=== PATIENT | male | born 1950 | race Two or more races ===

== ENCOUNTER 2016-09-15 03:41 | Inpatient (IN) | payer MEDICARE, MEDICAID ==
[2016-09-15] VITALS (8 sets, daily range): BP systolic 105–148; BP diastolic 68–82
[~2016-09-15] VITALS: Ht 160 cm; Wt 57.7 kg
[~2016-09-15 03:41] MED LIST: TYLENOL EXTRA500 MG ORAL
[2016-09-15] MEDS ORDERED: Ipratropium 0.02% Inh Soln 2.5ml UD HHN ONE (03:45)
[2016-09-15] MEDS ORDERED: Albuterol ud Inhalation HHN ONE (03:45)
[2016-09-15 04:08] LABS: MEAN CORPUSCULAR HEMOGLOBIN 28.5 PG (27.0-31.0); MEAN CORPUSCULAR HGB CONC 32.9 G/DL (32.0-36.0); MEAN CORPUSCULAR VOLUME 87 FL (80-99); MEAN PLATELET VOLUME 8.6 FL (6.5-10.1); PLATELET COUNT 185 K/UL (150-450); RED CELL DISTRIBUTION WIDTH 12.2 % (11.6-14.8); WHITE BLOOD COUNT 13.7 K/UL (4.8-10.8)
[2016-09-15] MEDS ORDERED: cefTRIAXone 1 GM in NS 55 ML IVPB ONE (04:15)
[2016-09-15] MEDS ORDERED: Azithromycin 500 MG in NS 275 ML IV ONE (04:15)
[2016-09-15 04:19] LABS: PROTHROMBIN TIME 9.9 SEC (9.30-11.50)
[2016-09-15 04:23] LABS: ALBUMIN/GLOBULIN RATIO 0.7 (1.0-2.7); CALCIUM 8.2 mg/dL (8.6-10.2); POTASSIUM 5.6 mEQ/L (3.4-4.9); TOTAL PROTEIN 6.6 g/dL (6.6-8.7)
[2016-09-15 04:30] LABS: TROPONIN I 2.07 ng/mL (<=0.30)
[2016-09-15] MEDS ORDERED: Enoxaparin 80mg Inj SUBQ ONE (04:30)
[2016-09-15] MEDS ORDERED: Aspirin Baby 81mg ORAL ONE (04:30)
[2016-09-15] MEDS ORDERED: Azithromycin Inj IV ONE (04:30)
[2016-09-15 04:31] LABS: REFLEX LACTIC ACID YES OR NO YES
[2016-09-15 04:34] LABS: CKMB 6.3 ng/mL (< 6.7)
[2016-09-15] MEDS ORDERED: NKM (04:57)
[2016-09-15 05:27] LABS: APPEARANCE,URINE CLEAR; KETONES,URINE 1+ (NEGATIVE); LEUKOCYTE ESTERASE ,URINE NEGATIVE (NEGATIVE); NITRITE,URINE NEGATIVE (NEGATIVE); PH,URINE 5 (4.5-8.0); PROTEIN,URINE 4+ (NEGATIVE); UROBILINOGEN,URINE NORMAL MG/DL (0.0-1.0)
--- NOTE | 2016-09-15 05:47 | Emergency Room Report ---
History of Present Illness General Chief Complaint: Dyspnea/Respdistress Source: Patient, EMS Present Illness HPI Is a 66-year-old male who has history of insulin-dependent diabetes. He has not been taking his insulin because he ran out of medication. He presents with chief complaint shortness of breath. Onset for 3 days but worse tonight. Unable to breathe. Had to call 911. EMS said he was at rest or distress and was hypoxic at 90% on room air. They put him on oxygen and brought him here. Patient denies any fever or chills. Worse with exertion. Worse with lying flat. Denies any chest pain but has chest tightness from respiratory distress. No other complaint. Allergies: Coded Allergies: No Known Allergies (Unverified , 07/30/13) Patient History Past Medical History: see triage record, old chart reviewed, DM Past Surgical History: other Pertinent Family History: none Social History: Denies: alcohol use, drug use, smoking Immunizations: other Reviewed Nursing Documentation: PMH: Agreed, PSxH: Agreed Nursing Documentation-PMH Hx Asthma: Yes Hx Diabetes: Yes Review of Systems Eye: Denies: blurred vision, eye pain ENT: Denies: ear pain, nose congestion, throat swelling Respiratory: Reports: cough, shortness of breath Cardiovascular: Denies: chest pain, palpitations Gastrointestinal: Denies: abdominal pain, diarrhea, nausea, vomiting Musculoskeletal: Denies: back pain, joint pain Skin: Denies: rash Neurological: Denies: headache, numbness Endocrine: Denies: increased thirst, increased urine Hematologic/Lymphatic: Denies: easy bruising All Other Systems: negative except mentioned in HPI Physical Exam Vital Signs Date Time Temp Pulse Resp B/P Pulse Ox O2 Delivery O2 Flow Rate FiO2 09/15/16 03:49 98.1 111 37 166/86 90 Nasal Cannula 4.0 09/15/16 04:10 60 vitals with tachycardia, hypertension, hypoxia Sp02 EP Interpretation: abnormal General Appearance: severe distress Head: normocephalic, atraumatic Eyes: bilateral eye EOMI, bilateral eye PERRL ENT: hearing grossly normal, normal pharynx Neck: full range of motion, supple, no meningismus Respiratory: chest non-tender, respiratory distress, decreased breath sounds, rales Cardiovascular #1: regular rate, rhythm, no murmur Gastrointestinal: normal bowel sounds, non tender, no mass, no organomegaly, no bruit, non-distended Genitourinary: other - Large right inguinal hernia. Nontender. Musculoskeletal: back normal, normal range of motion Neurologic: alert, oriented x3, grossly normal Psychiatric: mood/affect normal Skin: warm/dry Procedures Critical Care Time Critical Care Time Critical care is mandated in this patient who presented with distress secondary to pulmonary edema. Patient require my urgent intervention to attenuate the risks of respiratory collapse which may lead to cardiovascular collapse and . Critical care time is 35 minutes excluding any reportable procedure. Critical care time included evaluation, multiple reevaluation, looking at old charts, interpreting laboratory and diagnostic data, discussing case with patient and family and consultants, and charting. Medical Decision Making Diagnostic Impression: Primary Impression: Respiratory failure with hypoxia Qualified Codes: J96.01 - Acute respiratory failure with hypoxia Additional Impressions: NSTEMI, initial episode of care Pulmonary edema cardiac cause Acute kidney failure Qualified Codes: N17.9 - Acute kidney failure, unspecified Hyperglycemia due to type 1 diabetes mellitus Hyperkalemia Inguinal hernia of right side without obstruction or gangrene ER Course Patient presents with respiratory distress. He improved with BiPAP breathing treatment and Lasix. His tongue edema is atypical in that mostly left-sided. I cover him for possible pneumonia. Cardiac enzyme is elevated. This may be secondary to infection versus primary etiology causing CHF from NSTEMI. Patient is noncompliant with his insulin because he ran out. Blood pressure improved. Will admit to [facility]. Laboratory Tests Test 09/15/16 03:07 09/15/16 04:39 09/15/16 05:07 White Blood Count 13.7 K/UL (4.8-10.8) H Red Blood Count 4.30 M/UL (4.70-6.10) L Hemoglobin 12.3 G/DL (14.2-18.0) L Hematocrit 37.3 % (42.0-52.0) L Mean Corpuscular Volume 87 FL (80-99) Mean Corpuscular Hemoglobin 28.5 PG (27.0-31.0) Mean Corpuscular Hemoglobin Concent 32.9 G/DL (32.0-36.0) Red Cell Distribution Width 12.2 % (11.6-14.8) Platelet Count 185 K/UL (150-450) Mean Platelet Volume 8.6 FL (6.5-10.1) Neutrophils (%) (Auto) % (45.0-75.0) Lymphocytes (%) (Auto) % (20.0-45.0) Monocytes (%) (Auto) % (1.0-10.0) Eosinophils (%) (Auto) % (0.0-3.0) Basophils (%) (Auto) % (0.0-2.0) Prothrombin Time 9.9 SEC (9.30-11.50) Prothromb Time International Ratio 1.0 (0.9-1.1) Activated Partial Thromboplast Time 33 SEC (23-33) Sodium Level 131 mEQ/L (135-145) L Potassium Level 5.6 mEQ/L (3.4-4.9) H Chloride Level 93 mEQ/L (98-107) L Carbon Dioxide Level 17 mEQ/L (20-30) L Anion Gap 21 (5-15) H Blood Urea Nitrogen 52 mg/dL (7-23) H Creatinine 3.0 mg/dL (0.7-1.2) H Estimat Glomerular Filtration Rate 21.0 mL/min (>60) Glucose Level 424 mg/dL (74-106) H Lactic Acid Level 2.30 mmol/L (0.66-2.22) H Pending Calcium Level 8.2 mg/dL (8.6-10.2) L Total Bilirubin 0.4 mg/dL (0.0-1.2) Aspartate Amino Transf (AST/SGOT) 47 U/L (5-40) H Alanine Aminotransferase (ALT/SGPT) 25 U/L (3-41) Alkaline Phosphatase 63 U/L (40-129) Total Creatine Kinase 918 U/L (38-174) H Creatine Kinase MB 6.3 ng/mL (< 6.7) Creatine Kinase MB Relative Index 0.6 Troponin I 2.07 ng/mL (<=0.30) *H Pro-B-Type Natriuretic Peptide 72911 pg/mL (0-125) H Total Protein 6.6 g/dL (6.6-8.7) Albumin 2.8 g/dL (3.5-5.2) L Globulin 3.8 g/dL Albumin/Globulin Ratio 0.7 (1.0-2.7) L Urine Color Pale yellow Urine Appearance Clear Urine pH 5 (4.5-8.0) Urine Specific [place] 1.020 (1.005-1.035) Urine Protein 4+ (NEGATIVE) H Urine Glucose (UA) 4+ (NEGATIVE) H Urine Ketones 1+ (NEGATIVE) H Urine Occult Blood 4+ (NEGATIVE) H Urine Nitrite Negative (NEGATIVE) Urine Bilirubin Negative (NEGATIVE) Urine Urobilinogen Normal MG/DL (0.0-1.0) Urine Leukocyte Esterase Negative (NEGATIVE) Urine RBC Pending Urine WBC Pending Urine Squamous Epithelial Cells Pending Urine Bacteria Pending Lab Results Impression labs with elevated BNP and trop. EKG Diagnostic Results Rate: normal, tachycardiac Rhythm: NSR ST Segments: other - NSST changes. Rhythm Strip Diag. Results EP Interpretation: yes Rate: 98 Rhythm: NSR, no PVC's, no ectopy Chest X-Ray Diagnostic Results EP Interpretation: Yes Findings: no pneumothorax, other - CM, Large left sided infiltrate vs pulm edema. Vasc congestion. Number of Views: 1 Last Vital Signs Date Time Temp Pulse Resp B/P Pulse Ox O2 Delivery O2 Flow Rate FiO2 09/15/16 05:31 98.1 107 28 148/82 97 Bi-pap 4.0 60 Status: improved Disposition: ADMITTED INPATIENT Condition: Critical Referrals: [facility],REFERRING (PCP) JERAMIE LANDAVERDE M.D. Sep 15, 2016 05:46
[2016-09-15 05:48] LABS: AMORPHOUS SEDIMENT,UR MANY /LPF; BACTERIA,URINE FEW /HPF; WBC,URINE 0 /HPF (0 - 0)
[2016-09-15] MEDS ORDERED: DuoNeb 0.5-3(2.5)mg/3ml neb HHN PRN ×2 (07:15)
[2016-09-15] MEDS ORDERED: LORazepam Inj 2mg/ml 1ml IV PRN (07:15)
[2016-09-15] MEDS ORDERED: Miralax 17gm pkt ORAL PRN ×2 (07:15)
[2016-09-15] MEDS ORDERED: Heparin 5000 units/ml inj SUBQ SCH ×2 (09:00)
[2016-09-15 09:31] LABS: TROPONIN I 2.89 ng/mL (<=0.30)
--- NOTE | 2016-09-15 11:12 | Diagnostic Imaging Report ---
Indication: SOB Technique: One view of the chest Comparison: 07/30/2013 Findings: There is extensive dense consolidation throughout the left lung. There is less extensive mostly interstitial disease throughout the right lung. Right suprahilar scarring persists, unchanged. The pleural spaces are clear. Heart size is probably normal Impression: Bilateral left greater than right parenchymal disease, as described, likely pneumonia. Correlate with clinical findings
--- NOTE | 2016-09-15 11:26 | Diagnostic Imaging Report ---
Indication: Abnormal renal function tests Technique: Grayscale and duplex images of the kidneys, retroperitoneum, and bladder were obtained. Comparison:None Findings: Right kidney measures 10.7 cm in length. Left kidney measures 10.5 cm in length. Both kidneys demonstrate normal echogenicity. No hydronephrosis. No focal abnormality. Normal inferior vena cava. Bladder is empty. There is incidental finding of a left pleural effusion Impression: Negative for hydronephrosis Left pleural effusion incidentally noted.
--- NOTE | 2016-09-15 11:31 | History and Physical ---
History of Present Illness General Date patient seen: Sep 15, 2016 Reason for Hospitalization: Dyspnea/Respdistress Present Illness HPI 66-year-old male with hx of nsulin-dependent diabetes, noncompliant, presented tp ER with chief complaint shortness of breath. Onset for 3 days but worse tonight. He was unable to breathe. EMS said he was hypoxic at 90% on room air. They put him on oxygen and brought him to [facility] ER. Patient denied any fever or chills. Denies any chest pain but has chest tightness from respiratory distress. No other complaint. Allergies: Coded Allergies: No Known Allergies (Unverified , 07/30/13) Medication History Scheduled No Known Medications* (NKM - No Known Medications*), 0 ., (Reported) Scheduled PRN Acetaminophen* (Tylenol Extra Strength*), 500 MG ORAL Q6H PRN for Prn Headache/ Temp > 101 Patient History Healthcare decision maker Resuscitation status Advanced Directive on File Past Medical/Surgical History Past Medical/Surgical History: (1) COPD (chronic obstructive pulmonary disease) (2) Diabetes mellitus Review of Systems All Other Systems: negative except mentioned in HPI Physical Exam Lines, tubes and drains: peripheral HEENT: normocephalic, atraumatic Neck: non-tender, normal alignment Respiratory/Chest: rhonchi - bilaterally Cardiovascular/Chest: normal peripheral pulses, normal rate Abdomen: normal bowel sounds, non tender Extremities: normal range of motion, non-tender 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 Last 24 Hour Vital Signs Date Time Temp Pulse Resp B/P Pulse Ox O2 Delivery O2 Flow Rate FiO2 09/15/16 09:30 97.1 100 30 118/68 98 Simple Mask 5.0 60 09/15/16 08:30 97.5 101 28 120/68 98 Simple Mask 5.0 09/15/16 08:10 102 30 Simple Mask 5.0 09/15/16 07:15 98.0 98 21 108/68 100 Bi-pap 4.0 60 09/15/16 07:15 98 21 Bi-pap 4.0 60 09/15/16 07:14 116 28 100 Facial 40 09/15/16 06:16 98.1 104 23 105/69 97 Bi-pap 4.0 60 09/15/16 05:31 98.1 107 28 148/82 97 Bi-pap 4.0 60 09/15/16 04:36 108 33 99 Bi-pap 60 09/15/16 04:13 136 36 94 Facial 60 09/15/16 04:10 136 36 95 Bi-pap 60 09/15/16 04:10 136 36 Bi-pap 4.0 60 09/15/16 03:49 98.1 111 37 166/86 90 Nasal Cannula 4.0 Intake and Output 09/14/16 09/15/16 19:00 07:00 Intake Total 330 ml Output Total 100 ml Balance 230 ml Intake IV Total 330 ml Output Urine Total 100 ml Laboratory Tests Test 09/15/16 03:07 09/15/16 04:39 09/15/16 05:07 09/15/16 08:39 White Blood Count 13.7 K/UL (4.8-10.8) H Red Blood Count 4.30 M/UL (4.70-6.10) L Hemoglobin 12.3 G/DL (14.2-18.0) L Hematocrit 37.3 % (42.0-52.0) L Mean Corpuscular Volume 87 FL (80-99) Mean Corpuscular Hemoglobin 28.5 PG (27.0-31.0) Mean Corpuscular Hemoglobin Concent 32.9 G/DL (32.0-36.0) Red Cell Distribution Width 12.2 % (11.6-14.8) Platelet Count 185 K/UL (150-450) Mean Platelet Volume 8.6 FL (6.5-10.1) Neutrophils (%) (Auto) % (45.0-75.0) Lymphocytes (%) (Auto) % (20.0-45.0) Monocytes (%) (Auto) % (1.0-10.0) Eosinophils (%) (Auto) % (0.0-3.0) Basophils (%) (Auto) % (0.0-2.0) Prothrombin Time 9.9 SEC (9.30-11.50) Prothromb Time International Ratio 1.0 (0.9-1.1) Activated Partial Thromboplast Time 33 SEC (23-33) Sodium Level 131 mEQ/L (135-145) L Potassium Level 5.6 mEQ/L (3.4-4.9) H Chloride Level 93 mEQ/L (98-107) L Carbon Dioxide Level 17 mEQ/L (20-30) L Anion Gap 21 (5-15) H Blood Urea Nitrogen 52 mg/dL (7-23) H Creatinine 3.0 mg/dL (0.7-1.2) H Estimat Glomerular Filtration Rate 21.0 mL/min (>60) Glucose Level 424 mg/dL (74-106) H Lactic Acid Level 2.30 mmol/L (0.66-2.22) H 2.10 mmol/L (0.66-2.22) Calcium Level 8.2 mg/dL (8.6-10.2) L Total Bilirubin 0.4 mg/dL (0.0-1.2) Aspartate Amino Transf (AST/SGOT) 47 U/L (5-40) H Alanine Aminotransferase (ALT/SGPT) 25 U/L (3-41) Alkaline Phosphatase 63 U/L (40-129) Total Creatine Kinase 918 U/L (38-174) H Creatine Kinase MB 6.3 ng/mL (< 6.7) Creatine Kinase MB Relative Index 0.6 Troponin I 2.07 ng/mL (<=0.30) *H 2.89 ng/mL (<=0.30) *H Pro-B-Type Natriuretic Peptide 99439 pg/mL (0-125) H Total Protein 6.6 g/dL (6.6-8.7) Albumin 2.8 g/dL (3.5-5.2) L Globulin 3.8 g/dL Albumin/Globulin Ratio 0.7 (1.0-2.7) L Urine Color Pale yellow Urine Appearance Clear Urine pH 5 (4.5-8.0) Urine Specific [place] 1.020 (1.005-1.035) Urine Protein 4+ (NEGATIVE) H Urine Glucose (UA) 4+ (NEGATIVE) H Urine Ketones 1+ (NEGATIVE) H Urine Occult Blood 4+ (NEGATIVE) H Urine Nitrite Negative (NEGATIVE) Urine Bilirubin Negative (NEGATIVE) Urine Urobilinogen Normal MG/DL (0.0-1.0) Urine Leukocyte Esterase Negative (NEGATIVE) Urine RBC 5-10 /HPF (0 - 0) H Urine WBC 0 /HPF (0 - 0) Urine Squamous Epithelial Cells None /LPF (NONE/OCC) Urine Amorphous Sediment Many /LPF (NONE) H Urine Bacteria Few /HPF (NONE) Height (Feet): 5 Height (Inches): 3.00 Weight (Pounds): 145 Medications Current Medications Medications (Trade) Dose Ordered Sig/Leslee Route PRN Reason Start Time Stop Time Status Last Admin Dose Admin Acetaminophen (Tylenol) 650 mg Q4H PRN ORAL T>100.5 09/15/16 07:15 10/15/16 07:14 Albuterol/ Ipratropium (DuoNeb 0.5-3(2.5)mg/3ml) 3 ml Q4H PRN HHN Shortness of Breath 09/15/16 07:15 09/20/16 07:14 Cefepime HCl 1 gm/ Dextrose 55 ml @ 110 mls/hr EVERY 12 HOURS IVPB 09/15/16 11:30 09/22/16 11:29 UNV Dextrose (Dextrose 50%) STAT PRN IV Hypoglycemia 09/15/16 07:15 10/15/16 07:14 Heparin Sodium (Porcine) (Heparin 5000 units/ml) 5,000 units EVERY 12 HOURS SUBQ 09/15/16 09:00 10/15/16 08:59 09/15/16 09:51 Levofloxacin (Levaquin) 100 ml @ 100 mls/hr Q24H IVPB 09/15/16 11:30 09/22/16 11:29 UNV Lorazepam (Ativan 2mg/ml 1ml) 2 mg Q2H PRN IV For Anxiety 09/15/16 07:15 09/22/16 07:14 Morphine Sulfate (Morphine Sulfate) 4 mg Q4H PRN IVP Severe Pain (Pain Scale 7-10) 09/15/16 07:15 09/22/16 07:14 Ondansetron HCl (Zofran) 4 mg Q6H PRN IVP Nausea & Vomiting 09/15/16 07:15 10/15/16 07:14 Polyethylene Glycol (Miralax) 17 gm DAILYPRN PRN ORAL Constipation 09/15/16 07:15 10/15/16 07:14 Temazepam (Restoril) 15 mg HSPRN PRN ORAL Insomnia 09/15/16 21:00 09/22/16 20:59 Vancomycin HCl 1 ea 1 ea DAILY PRN MISC Per rx protocol 09/15/16 11:30 10/15/16 11:29 UNV Assessment/Plan Problem List: (1) Respiratory failure with hypoxia ICD Codes: J96.91 - Respiratory failure, unspecified with hypoxia SNOMED: 74799483939865584, 40296439 Qualifiers: Qualified Codes: J96.01 - Acute respiratory failure with hypoxia (2) NSTEMI, initial episode of care ICD Codes: I21.4 - Non-ST elevation (NSTEMI) myocardial infarction SNOMED: 950799415, 22483631 (3) Pneumonia ICD Codes: J18.9 - Pneumonia, unspecified organism SNOMED: 413429157 (4) Acute kidney failure ICD Codes: N17.9 - Acute kidney failure, unspecified SNOMED: 83399696, 05987718 Qualifiers: Qualified Codes: N17.9 - Acute kidney failure, unspecified (5) Hyperkalemia ICD Codes: E87.5 - Hyperkalemia SNOMED: 02179935, 61376884 (6) Diabetes mellitus ICD Codes: E11.9 - Type 2 diabetes mellitus without complications SNOMED: 68889666 Assessment/Plan respiratory treatment IV antibiotics check sputum echo cardiac evaluation f/u troponin and ekg dvt prophylaxis cxr in a few days. SIM ROJAS Sep 15, 2016 11:31
--- NOTE | 2016-09-15 12:42 | Cardiology Progress Note ---
Assessment/Plan Assessment/Plan pnewuamoni nstemi probably demand and underlying cad dm poor present control renal insuf (acute l=liek as hgb still ok) hs of tb abn ekg naitcocgulation bb ecotrin statin echo iv abx avoitn albutera if at all possible no diuretics yet [id number] Objective Last 24 Hour Vital Signs Date Time Temp Pulse Resp B/P Pulse Ox O2 Delivery O2 Flow Rate FiO2 09/15/16 12:14 102 24 120/71 97 Simple Mask 5.0 09/15/16 09:30 97.1 100 30 118/68 98 Simple Mask 5.0 60 09/15/16 08:30 97.5 101 28 120/68 98 Simple Mask 5.0 09/15/16 08:10 102 30 Simple Mask 5.0 09/15/16 07:15 98.0 98 21 108/68 100 Bi-pap 4.0 60 09/15/16 07:15 98 21 Bi-pap 4.0 60 09/15/16 07:14 116 28 100 Facial 40 09/15/16 06:16 98.1 104 23 105/69 97 Bi-pap 4.0 60 09/15/16 05:31 98.1 107 28 148/82 97 Bi-pap 4.0 60 09/15/16 04:36 108 33 99 Bi-pap 60 09/15/16 04:13 136 36 94 Facial 60 09/15/16 04:10 136 36 95 Bi-pap 60 09/15/16 04:10 136 36 Bi-pap 4.0 60 09/15/16 03:49 98.1 111 37 166/86 90 Nasal Cannula 4.0 Intake and Output 09/14/16 09/15/16 19:00 07:00 Intake Total 330 ml Output Total 100 ml Balance 230 ml Intake IV Total 330 ml Output Urine Total 100 ml Laboratory Tests Test 09/15/16 03:07 09/15/16 04:39 09/15/16 05:07 09/15/16 08:39 White Blood Count 13.7 K/UL (4.8-10.8) H Red Blood Count 4.30 M/UL (4.70-6.10) L Hemoglobin 12.3 G/DL (14.2-18.0) L Hematocrit 37.3 % (42.0-52.0) L Mean Corpuscular Volume 87 FL (80-99) Mean Corpuscular Hemoglobin 28.5 PG (27.0-31.0) Mean Corpuscular Hemoglobin Concent 32.9 G/DL (32.0-36.0) Red Cell Distribution Width 12.2 % (11.6-14.8) Platelet Count 185 K/UL (150-450) Mean Platelet Volume 8.6 FL (6.5-10.1) Neutrophils (%) (Auto) % (45.0-75.0) Lymphocytes (%) (Auto) % (20.0-45.0) Monocytes (%) (Auto) % (1.0-10.0) Eosinophils (%) (Auto) % (0.0-3.0) Basophils (%) (Auto) % (0.0-2.0) Prothrombin Time 9.9 SEC (9.30-11.50) Prothromb Time International Ratio 1.0 (0.9-1.1) Activated Partial Thromboplast Time 33 SEC (23-33) Sodium Level 131 mEQ/L (135-145) L Potassium Level 5.6 mEQ/L (3.4-4.9) H Chloride Level 93 mEQ/L (98-107) L Carbon Dioxide Level 17 mEQ/L (20-30) L Anion Gap 21 (5-15) H Blood Urea Nitrogen 52 mg/dL (7-23) H Creatinine 3.0 mg/dL (0.7-1.2) H Estimat Glomerular Filtration Rate 21.0 mL/min (>60) Glucose Level 424 mg/dL (74-106) H Lactic Acid Level 2.30 mmol/L (0.66-2.22) H 2.10 mmol/L (0.66-2.22) Calcium Level 8.2 mg/dL (8.6-10.2) L Total Bilirubin 0.4 mg/dL (0.0-1.2) Aspartate Amino Transf (AST/SGOT) 47 U/L (5-40) H Alanine Aminotransferase (ALT/SGPT) 25 U/L (3-41) Alkaline Phosphatase 63 U/L (40-129) Total Creatine Kinase 918 U/L (38-174) H Creatine Kinase MB 6.3 ng/mL (< 6.7) Creatine Kinase MB Relative Index 0.6 Troponin I 2.07 ng/mL (<=0.30) *H 2.89 ng/mL (<=0.30) *H Pro-B-Type Natriuretic Peptide 30166 pg/mL (0-125) H Total Protein 6.6 g/dL (6.6-8.7) Albumin 2.8 g/dL (3.5-5.2) L Globulin 3.8 g/dL Albumin/Globulin Ratio 0.7 (1.0-2.7) L Urine Color Pale yellow Urine Appearance Clear Urine pH 5 (4.5-8.0) Urine Specific [place] 1.020 (1.005-1.035) Urine Protein 4+ (NEGATIVE) H Urine Glucose (UA) 4+ (NEGATIVE) H Urine Ketones 1+ (NEGATIVE) H Urine Occult Blood 4+ (NEGATIVE) H Urine Nitrite Negative (NEGATIVE) Urine Bilirubin Negative (NEGATIVE) Urine Urobilinogen Normal MG/DL (0.0-1.0) Urine Leukocyte Esterase Negative (NEGATIVE) Urine RBC 5-10 /HPF (0 - 0) H Urine WBC 0 /HPF (0 - 0) Urine Squamous Epithelial Cells None /LPF (NONE/OCC) Urine Amorphous Sediment Many /LPF (NONE) H Urine Bacteria Few /HPF (NONE) DESIREE ROPER Sep 15, 2016 12:42
[2016-09-15] MEDS: Metoprolol Tartrate 12.5mg TAB ORAL SCH ×2 (13:17→21:14)
[2016-09-15] MEDS ORDERED: Heparin 25,000u/D5W 500ml 500 ML IV SCH (13:30)
[2016-09-15] MEDS ORDERED: Heparin 5000 units/ml inj IV ONE (13:30)
[2016-09-15] MEDS ORDERED: Vancomycin 1250mg/D5W 275ml IVPB ONE ×2 (14:00)
[2016-09-15 16:38] LABS: ALANINE AMINOTRANSFERASE 21 U/L (3-41); ALBUMIN/GLOBULIN RATIO 0.7 (1.0-2.7); ANION GAP 20 (5-15); ASPARTATE AMINO TRANSFERASE 32 U/L (5-40); CALCIUM 7.8 mg/dL (8.6-10.2); CARBON DIOXIDE 17 mEQ/L (20-30); CHLORIDE 97 mEQ/L (98-107); CREATININE 2.9 mg/dL (0.7-1.2); GLOMERULAR FILTRATION RATE 21.8 mL/min (>60); HEMOLYSIS 2; POTASSIUM 4.5 mEQ/L (3.4-4.9); SODIUM 134 mEQ/L (135-145); TOTAL PROTEIN 5.9 g/dL (6.6-8.7); URIC ACID 9.1 mg/dL (3.0-7.5)
[2016-09-15 16:45] LABS: FREE T3 2.1 pg/mL (2.3-4.2)
[2016-09-15] MEDS: Cefepime HCl 1 GM in D5W 55 ML IVPB SCH (18:09)
--- NOTE | 2016-09-15 19:08 | Consultation ---
DATE OF CONSULTATION: 09/15/2016 CARDIOLOGY CONSULTATION REFERRING PHYSICIAN: Ranulfo Winston M.D. REASON FOR REFERRAL: Abnormal cardiac enzymes. HISTORY OF PRESENT ILLNESS: This is a middle-aged gentleman, 66-year-old actually, who presents with three days of constant coughing and not sure about cold or wheezing, does not really have any pain, pressure, tightness or heaviness via direct questioning through one of the staff that speaks [place]. There is no orthopnea, although he uses two pillows for comfort. He has dyspnea on exertion. He does have dyspnea at rest. He has no palpitation. No dizziness. Some lightheadedness on standing. He has no pain, pressure, type of discomfort of any kind on detail questioning in the chest. These symptoms have been going on for approximately three days. He has had some fevers and chills as well. PAST MEDICAL HISTORY: Positive for diabetes and high blood pressure. No history of heart attack. No cancer. No stroke. No hepatitis. He does have a history of tuberculosis for which he was treated. No asthma or emphysema. No ulcers. He has had problems with one of his kidney, but not sure what kind. No liver problems, thyroid problems, anemia, or arthritis. He does not have any prostate problems or any other medical problems. ALLERGIES: He is not allergic to any medications. SOCIAL HISTORY: He used to smoke and drink. He quit those approximately five years ago. REVIEW OF SYSTEMS: Gastrointestinal: Denies any nausea or vomiting. His stool was dark and no bloody or black stools. Genitourinary: Negative. Pulmonary: Positive coughing and wheezing. Constitutional: No fevers or chills. Neurologic: Negative. PHYSICAL EXAMINATION: GENERAL: The patient to be elderly gentleman, on facemask with frequent coughing. NECK: Supple. No jugular venous distention. LUNGS: Some evidence of crackles on the left side of the chest, however, the right side appears to be less and he does not have any wheezing. CARDIAC: Regular rate and rhythm. He has borderline tachycardia. No RV lift, heaves or thrills noted. ABDOMEN: Soft and nontender. Positive bowel sounds. EXTREMITIES: There is no clubbing, cyanosis, nor is there any edema. NEUROLOGIC: He is awake, alert, responsive, and in no apparent respiratory distress. LABORATORY AND DIAGNOSTIC DATA: An electrocardiogram performed in the emergency room shows sinus rhythm at a rate of 109 consistent with sinus tachycardia, ST-segment depression in V1, V2, V3 and aVF as well as V4, V5 and V6 with some T-wave inversions in all of those leads including T-wave inversion in lead aVL. There is some evidence of ST-segment elevation of minimal degree in aVR and there is a delay in R-wave progression suggestive of anteroseptal T-wave. His blood test, white count 13.7, hemoglobin 12.3, and platelet count 185,000. Sodium is 131, potassium 5.6, chloride 92, bicarbonate 17, BUN 52, creatinine 3.2, and glucose of 424. His lactic acid is 2.3, his proBNP is 27,000. His troponin is 2.07 and increased up to 2.8 and his CPK of 918. His coagulations, INR is 1.0. His urinalysis 5 to 10 RBCs and 0 WBCs. His chest x-ray performed in the emergency room showed bilateral left greater than right parenchymal disease and a chest x-ray, which I personally reviewed shows a rather dense infiltrate on the left side and little on the right side. Ultrasound of his kidneys shows left-sided pleural effusion and negative hydronephrosis. ASSESSMENT AND PLAN: 1. Non ST-elevation myocardial infarction, questionable demand versus combination of the demands and underlying coronary disease. 2. Diabetes mellitus. 3. History of hypertension. 4. History of tuberculosis. 5. Renal insufficiency. 6. Profound leukocytosis secondary to pneumonia. 7. Pneumonia. 8. Electrolyte abnormalities. Dr. Winston, this patient was seen in cardiac consultation. He probably has a primary pneumonic process and a secondary myocardial or ischemic process as well as possibly underlying coronary disease. He needs to be treated for his infection and I will order an echocardiogram for evaluation of ventricular systolic function. His blood sugars of course out of control with blood sugar of 420, hemoglobin A1c should be performed to see how bad his long-term blood sugar control has been. He may need treatment for heart failure as well, however, he would hold off on treatment until his renal function stabilizes and his echocardiogram results are available as that may be detrimental to his renal function. Dr. Winston, thank you for allowing me to participate in the care of this patient. Selvin Silva M.D. DR: HELEN JOB#: [id number] CC:
[2016-09-15] MEDS: Morphine Sulfate 4mg/ml Inj IVP PRN (19:28)
[2016-09-15 20:43] LABS: APPEARANCE,URINE VERY CLOUDY; KETONES,URINE 1+ (NEGATIVE); LEUKOCYTE ESTERASE ,URINE 1+ (NEGATIVE); NITRITE,URINE NEGATIVE (NEGATIVE); PH,URINE 5 (4.5-8.0); PROTEIN,URINE 4+ (NEGATIVE); UROBILINOGEN,URINE NORMAL MG/DL (0.0-1.0)
[2016-09-15 20:48] LABS: RBC,URINE TNTC /HPF (0 - 0)
[2016-09-15 20:49] LABS: BACTERIA,URINE FEW /HPF
[2016-09-15] MEDS: NovoLOG Insulin Flexpen SUBQ SCH (22:47)
--- NOTE | 2016-09-15 23:02 | Consultation ---
Consult Note Consult Note ID Dic [id number] DARIUS SANCHEZ M.D. Sep 15, 2016 23:02
[2016-09-16 00:56] VITALS: BP 119/75
[2016-09-16 04:00] VITALS: BP 137/84
--- NOTE | 2016-09-16 04:08 | Consultation ---
DATE OF CONSULTATION: INFECTIOUS DISEASE CONSULTATION CONSULTING PHYSICIAN: Lon Amin M.D. REFERRING PHYSICIAN: Ranulfo Winston M.D. REASON FOR CONSULTATION: Evaluation of the patient with sepsis and pneumonia and antibiotic management. HISTORY OF PRESENT ILLNESS: The patient is a 66-year-old male with multiple medical problems, who came to the hospital for shortness of breath that has worsened over the last few days. The patient is admitted with impression of pneumonia. Infectious Disease consultation has been requested for further evaluation of the patient's antibiotic management. PAST MEDICAL HISTORY: 1. Diabetes. 2. Chronic obstructive pulmonary disease. 3. Asthma. 4. History of inguinal hernia. 5. Hematuria in the past. ALLERGIES: No known drug allergies. SOCIAL HISTORY: No history of alcohol or drug abuse. FAMILY HISTORY: Noncontributory. MEDICATIONS: Levaquin, cefepime, and vancomycin. PHYSICAL EXAMINATION: VITAL SIGNS: Temperature 97.8, blood pressure 130/78, pulse 86, and respiratory rate 18. HEENT: Mild pale conjunctivae. No icterus. NECK: No lymphadenopathy. CHEST: Coarse breathing sounds. HEART: S1 and S2. ABDOMEN: Soft. EXTREMITIES: No cyanosis. NEUROLOGIC: Awake. LABORATORY DATA: White blood cells 13.7, hemoglobin 12, and platelets 185,000. Urinalysis, too numerous to count red blood cells and 0 to 2 white blood cells. BUN 56 and creatinine 2.9. Lactic acid is 2.1. AST, ALT, and alkaline phosphatase are unremarkable. Cultures are pending. Ultrasound of the kidneys, no hydronephrosis. Chest x-ray, bilateral left greater than right parenchymal disease. Dopplers, no evidence of DVT. ASSESSMENT: The patient is a 66-year-old male with multiple medical problems, is admitted to this medical center with pneumonia, possible urinary tract infection as the patient has hematuria. The patient will benefit from coverage of atypicals and gram negatives. Doubt MRSA to have a role. PLAN: 1. Start the patient on cefepime and Levaquin. 2. Monitor CBC. 3. Monitor BMP. 4. Monitor cultures, blood, sputum, and urine. Based on the patient's clinical course and labs, we will do further recommendations. Thank you, Dr. Winston, for allowing me to participate in the care of this patient. I will follow the patient with you during this hospitalization. Lon Amin M.D. DR: MANAV JOB#: [id number] CC:
[2016-09-16 05:59] LABS: BASOPHILS % (AUTO) 0.4 % (0.0-2.0); EOSINOPHILS % (AUTO) 0.1 % (0.0-3.0); LYMPHOCYTES % (AUTO) 8.9 % (20.0-45.0); MEAN CORPUSCULAR HGB CONC 33.6 G/DL (32.0-36.0); MEAN CORPUSCULAR VOLUME 86 FL (80-99); MEAN PLATELET VOLUME 8.9 FL (6.5-10.1); MONOCYTES % (AUTO) 6.7 % (1.0-10.0); PLATELET COUNT 184 K/UL (150-450); WHITE BLOOD COUNT 9.8 K/UL (4.8-10.8)
[2016-09-16] MEDS: NovoLOG Insulin Flexpen SUBQ SCH ×4 (06:11→21:30)
[2016-09-16 06:49] LABS: CALCIUM 7.8 mg/dL (8.6-10.2); CREATININE 2.9 mg/dL (0.7-1.2); GLOMERULAR FILTRATION RATE 21.8 mL/min (>60); PHOSPHORUS 3.9 mg/dL (2.5-4.8); POTASSIUM 5.1 mEQ/L (3.4-4.9)
[2016-09-16 06:57] LABS: TROPONIN I 2.15 ng/mL (<=0.30)
[2016-09-16 08:00] VITALS: BP 138/79
[2016-09-16] MEDS: Aspirin EC 81mg tab ORAL SCH (08:51)
[2016-09-16] MEDS: Metoprolol Tartrate 12.5mg TAB ORAL SCH ×2 (08:51→21:28)
--- NOTE | 2016-09-16 09:40 | Diagnostic Imaging Report ---
APPROVED REPORT CPT Code: 31230 Present Symptoms Shortness of breath BILATERAL: Imaging reveals a patent deep venous system bilaterally. There is no evidence of thrombus within the femoral, popliteal or tibial segments. The greater saphenous veins are also within normal limits. Doppler indicates normal spontaneous flow within these segments.
[2016-09-16] MEDS: Levofloxacin 250mg/D5W 50ml IVPB SCH (11:16)
--- NOTE | 2016-09-16 11:42 | Pulmonology Progress Note ---
Assessment/Plan Problems: (1) Respiratory failure with hypoxia (2) NSTEMI, initial episode of care (3) Pneumonia (4) Acute kidney failure (5) Hyperkalemia (6) Diabetes mellitus Assessment/Plan IV abx check cultures echo noted, EF of 30 chest PT cxr reviewed, still extensive infiltrate. cardio and Id f/u Subjective ROS Limited/Unobtainable: No Interval Events: slightly better Constitutional: Reports: no symptoms HEENT: Repors: no symptoms Allergies: Coded Allergies: No Known Allergies (Unverified , 07/30/13) Objective Last 24 Hour Vital Signs Date Time Temp Pulse Resp B/P Pulse Ox O2 Delivery O2 Flow Rate FiO2 09/16/16 11:05 90 20 94 09/16/16 09:22 91 22 93 09/16/16 08:51 93 137/84 09/16/16 08:00 97.9 94 24 138/79 92 Venturi Mask 40 09/16/16 07:57 91 09/16/16 07:33 Venturi Mask 15.0 70 09/16/16 07:33 93 T-piece 70 09/16/16 07:33 95 22 93 09/16/16 05:22 93 22 94 09/16/16 04:12 95 09/16/16 04:00 97.3 99 24 137/84 100 Venturi Mask 09/16/16 03:23 102 24 95 09/16/16 01:09 99 22 97 09/16/16 00:56 97.4 94 24 119/75 95 Venturi Mask 09/15/16 23:48 96 09/15/16 22:50 102 22 96 09/15/16 21:14 100 130/78 09/15/16 20:02 97.8 100 19 130/78 94 09/15/16 20:00 97 09/15/16 19:58 97.8 09/15/16 18:40 105 24 95 09/15/16 18:40 Venturi Mask 15.0 70 09/15/16 17:01 94 T-piece 70 09/15/16 16:00 94 09/15/16 16:00 97.5 96 20 125/75 93 09/15/16 13:17 104 117/78 09/15/16 12:45 97.7 104 20 117/78 93 Simple Mask 5.0 09/15/16 12:14 102 24 120/71 97 Simple Mask 5.0 Intake and Output 09/15/16 09/16/16 19:00 07:00 Intake Total 320 ml Output Total 600 ml 400 ml Balance -600 ml -80 ml Intake Oral 320 ml Output Urine Total 600 ml 400 ml General Appearance: WD/WN, no acute distress HEENT: normocephalic Respiratory/Chest: chest wall non-tender, lungs clear, decreased breath sounds , crackles/rales Cardiovascular: normal peripheral pulses, normal rate Abdomen: normal bowel sounds, soft, non tender Extremities: no cyanosis, no clubbing Neurologic/Psychiatric: hiv/aids care nurse II-XII grossly normal, no motor/sensory deficits Microbiology Date/Time Source Procedure Growth Status 09/15/16 04:39 Blood Blood Culture - Preliminary NO GROWTH AFTER 24 HOURS Resulted 09/15/16 04:20 Blood Blood Culture - Preliminary NO GROWTH AFTER 24 HOURS Resulted Laboratory Tests 09/15/16 15:35: Sodium Level 134L, Potassium Level 4.5, Chloride Level 97L, Carbon Dioxide Level 17L, Anion Gap 20H, Blood Urea Nitrogen 56H, Creatinine 2.9H, Estimat Glomerular Filtration Rate 21.8, Glucose Level 218#H, Uric Acid 9.1H, Calcium Level 7.8L, Phosphorus Level 4.0, Magnesium Level 2.0, Total Bilirubin 0.2, Aspartate Amino Transf (AST/SGOT) 32, Alanine Aminotransferase (ALT/SGPT) 21, Alkaline Phosphatase 56, Total Creatine Kinase 505H, Total Protein 5.9L, Albumin 2.6L, Globulin 3.3, Albumin/Globulin Ratio 0.7L, Thyroid Stimulating Hormone (TSH) 0.990, Free Thyroxine 1.51, Free Triiodothyronine 2.1L 09/15/16 15:38: Activated Partial Thromboplast Time 45H, Plasma/Serum Osmolality [Pending], Cortisol [Pending] 09/15/16 18:20: Urine Color Red, Urine Appearance Very cloudy, Urine pH 5, Urine Specific [place] 1.015, Urine Protein 4+H, Urine Glucose (UA) 2+H, Urine Ketones 1+H, Urine Occult Blood 5+H, Urine Nitrite Negative, Urine Bilirubin Negative, Urine Urobilinogen Normal, Urine Leukocyte Esterase 1+H, Urine RBC TntcH, Urine WBC 2- 4, Urine Squamous Epithelial Cells None, Urine Bacteria Few, Urine Eosinophils None seen, Urine Random Sodium 21, Urine Random Chloride 32, Urine Potassium Timed 43 09/15/16 21:20: Urine Osmolality [Pending] 09/16/16 03:35: White Blood Count 9.8, Red Blood Count 3.70L, Hemoglobin 10.7L, Hematocrit 31.9L , Mean Corpuscular Volume 86, Mean Corpuscular Hemoglobin 29.0, Mean Corpuscular Hemoglobin Concent 33.6, Red Cell Distribution Width 12.0, Platelet Count 184, Mean Platelet Volume 8.9, Neutrophils (%) (Auto) 84.0H, Lymphocytes ( %) (Auto) 8.9L, Monocytes (%) (Auto) 6.7, Eosinophils (%) (Auto) 0.1, Basophils (%) (Auto) 0.4, Sodium Level 136, Potassium Level 5.1H, Chloride Level 99, Carbon Dioxide Level 16L, Anion Gap 21H, Blood Urea Nitrogen 58H, Creatinine 2.9H, Estimat Glomerular Filtration Rate 21.8, Glucose Level 256H, Calcium Level 7.8L, Phosphorus Level 3.9, Troponin I 2.15*H, Albumin 2.4L Current Medications Medications (Trade) Dose Ordered Sig/Leslee Route PRN Reason Start Time Stop Time Status Last Admin Dose Admin Acetaminophen (Tylenol) 650 mg Q4H PRN ORAL T>100.5 09/15/16 07:15 10/15/16 07:14 09/16/16 05:06 Albuterol/ Ipratropium (DuoNeb 0.5-3(2.5)mg/3ml) 3 ml Q4H PRN HHN Shortness of Breath 09/15/16 07:15 09/20/16 07:14 Aspirin (Ecotrin) 81 mg DAILY ORAL 09/16/16 09:00 10/16/16 08:59 09/16/16 08:51 Atorvastatin Calcium (Lipitor) 40 mg BEDTIME ORAL 09/15/16 21:00 10/15/16 20:59 09/15/16 21:14 Cefepime HCl 1 gm/ Dextrose 55 ml @ 110 mls/hr Q24H IVPB 09/15/16 16:00 09/22/16 15:59 09/15/16 18:09 Dextrose (Dextrose 50%) STAT PRN IV Hypoglycemia 09/15/16 07:15 10/15/16 07:14 Dextrose (Dextrose 50%) STAT PRN IV Hypoglycemia 09/15/16 20:45 10/15/16 20:44 Insulin Aspart (NovoLOG) BEFORE MEALS AND HS SUBQ 09/15/16 21:30 10/15/16 21:29 Levofloxacin (Levaquin) 50 ml @ 50 mls/hr Q24H IVPB 09/16/16 11:00 09/23/16 10:59 09/16/16 11:16 Lorazepam 2 mg 2 mg Q2H PRN IV For Anxiety 09/15/16 07:15 09/22/16 07:14 Metoprolol Tartrate (Lopressor) 12.5 mg Q12HR ORAL 09/15/16 13:00 10/15/16 12:59 09/16/16 08:51 Morphine Sulfate (Morphine Sulfate) 4 mg Q4H PRN IVP Severe Pain (Pain Scale 7-10) 09/15/16 07:15 09/22/16 07:14 09/15/16 19:28 Ondansetron HCl (Zofran) 4 mg Q6H PRN IVP Nausea & Vomiting 09/15/16 07:15 10/15/16 07:14 Polyethylene Glycol (Miralax) 17 gm DAILYPRN PRN ORAL Constipation 09/15/16 07:15 10/15/16 07:14 Temazepam (Restoril) 15 mg HSPRN PRN ORAL Insomnia 09/15/16 21:00 09/22/16 20:59 SIM ROJAS Sep 16, 2016 11:42
[2016-09-16 12:00] VITALS: BP 137/83
[2016-09-16 12:18] LABS: CORTISOL LC 40.5 ug/dL (.)
--- NOTE | 2016-09-16 15:07 | Diagnostic Imaging Report ---
Indication: Dyspnea Comparison: 09/15/2016 A single view chest radiograph was obtained. Findings: Patchy alveolar and interstitial infiltrates noted in the lungs bilaterally, worse on the left. Heart size remains normal. Vascularity is increased. Impression: No significant change compared to the previous day
--- NOTE | 2016-09-16 15:20 | Cardiology Report ---
APPROVED REPORT EXAM: Two-dimensional and M-mode echocardiogram with Doppler and color Doppler. INDICATION Left ventricular function Technically difficult study due to poor acoustic windows. M-mode measurements not obtainable due to cardica structure. Normal left ventricular chamber size. Global left ventricular hypokinesis. Apical akinesis. Left ventricular ejection fraction estimated to be 30-35%. No evidence of left ventricular hypertrophy. Small posterior and anterior pericardial effusion. All other cardiac chamber sizes are within normal limits. Focal aortic valve sclerosis with adequate cusp excursion Mildly thickened mitral valve leaflets with normal excursion. Mild mitral annulus and aortic root calcification. Pulmonic valve not well visualized. Normal tricuspid valve structure. IVC is normal in size with physiologic collapse. A color flow and spectral Doppler study was performed and revealed: No aortic regurgitation. Moderate mitral regurgitation. Left ventricular diastolic dysfunction grade 3. No tricuspid regurgitation.
--- NOTE | 2016-09-16 15:42 | Consultation ---
Consult Note Consult Note asked to evaluate for renal failure- Chief Complaint: Dyspnea/Respdistress Is a 66-year-old male who has history of insulin-dependent diabetes. He has not been taking his insulin because he ran out of medication. He presents with chief complaint shortness of breath. Onset for 3 days but worse tonight. Unable to breathe. Had to call 911. EMS said he was at rest or distress and was hypoxic at 90% on room air. They put him on oxygen and brought him here. Patient denies any fever or chills. Worse with exertion. Worse with lying flat. Denies any chest pain but has chest tightness from respiratory distress. No other complaint. 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
--- NOTE | 2016-09-16 15:54 | Cardiology Report ---
APPROVED REPORT EKG Measurement Heart [id number] Sinus tachycardia Anteroseptal infarct, age undetermined Marked ST abnormality, possible inferior subendocardial injury Abnormal ECG
[2016-09-16 16:00] VITALS: BP 136/82
[2016-09-16] MEDS: Cefepime HCl 1 GM in D5W 55 ML IVPB SCH (16:19)
[2016-09-16] MEDS: Morphine Sulfate 4mg/ml Inj IVP PRN (16:29)
[2016-09-16] MEDS ORDERED: Tubing IV Secondary IV ONE (17:39)
--- NOTE | 2016-09-16 18:29 | Infectious Diseases Prog Note ---
Assessment/Plan Assessment/Plan A: The patient is a 66-year-old male with Sepsis Pneumonia Chest x-ray: bilateral left greater than right parenchymal disease Diabetes. COPD / Asthma. History of inguinal hernia. Hematuria , Hx PLAN: cont patient on cefepime and Levaquin d # 2 Monitor CBC. Monitor BMP. Monitor cultures, blood, sputum, and urine. Subjective Constitutional: Denies: anorexia, chills, drenching sweats, fatigue, fever, no symptoms, other Allergies: Coded Allergies: No Known Allergies (Unverified , 07/30/13) Objective Vital Signs Last 24 Hour Vital Signs Date Time Temp Pulse Resp B/P Pulse Ox O2 Delivery O2 Flow Rate FiO2 09/16/16 17:11 91 22 93 09/16/16 16:00 96.8 100 20 136/82 93 Nasal Cannula 10.0 09/16/16 15:25 93 22 93 09/16/16 12:00 97.2 94 26 137/83 94 Venturi Mask 40 09/16/16 11:05 90 20 94 09/16/16 09:22 91 22 93 09/16/16 08:51 93 137/84 09/16/16 08:00 97.9 94 24 138/79 92 Venturi Mask 40 09/16/16 07:57 91 09/16/16 07:33 Venturi Mask 15.0 70 09/16/16 07:33 93 T-piece 70 09/16/16 07:33 95 22 93 09/16/16 05:22 93 22 94 09/16/16 04:12 95 09/16/16 04:00 97.3 99 24 137/84 100 Venturi Mask 09/16/16 03:23 102 24 95 09/16/16 01:09 99 22 97 09/16/16 00:56 97.4 94 24 119/75 95 Venturi Mask 09/15/16 23:48 96 09/15/16 22:50 102 22 96 09/15/16 21:14 100 130/78 09/15/16 20:02 97.8 100 19 130/78 94 09/15/16 20:00 97 09/15/16 19:58 97.8 09/15/16 18:40 105 24 95 09/15/16 18:40 Venturi Mask 15.0 70 Height (Feet): 5 Height (Inches): 3.00 Weight (Pounds): 145 HEENT: anicteric Respiratory/Chest: no respiratory distress Cardiovascular: normal rate, no JVD Microbiology Date/Time Source Procedure Growth Status 09/15/16 04:39 Blood Blood Culture - Preliminary NO GROWTH AFTER 24 HOURS Resulted 09/15/16 04:20 Blood Blood Culture - Preliminary NO GROWTH AFTER 24 HOURS Resulted Laboratory Tests Test 09/15/16 21:20 09/16/16 03:35 Urine Osmolality Pending White Blood Count 9.8 K/UL (4.8-10.8) Red Blood Count 3.70 M/UL (4.70-6.10) L Hemoglobin 10.7 G/DL (14.2-18.0) L Hematocrit 31.9 % (42.0-52.0) L Mean Corpuscular Volume 86 FL (80-99) Mean Corpuscular Hemoglobin 29.0 PG (27.0-31.0) Mean Corpuscular Hemoglobin Concent 33.6 G/DL (32.0-36.0) Red Cell Distribution Width 12.0 % (11.6-14.8) Platelet Count 184 K/UL (150-450) Mean Platelet Volume 8.9 FL (6.5-10.1) Neutrophils (%) (Auto) 84.0 % (45.0-75.0) H Lymphocytes (%) (Auto) 8.9 % (20.0-45.0) L Monocytes (%) (Auto) 6.7 % (1.0-10.0) Eosinophils (%) (Auto) 0.1 % (0.0-3.0) Basophils (%) (Auto) 0.4 % (0.0-2.0) Sodium Level 136 mEQ/L (135-145) Potassium Level 5.1 mEQ/L (3.4-4.9) H Chloride Level 99 mEQ/L (98-107) Carbon Dioxide Level 16 mEQ/L (20-30) L Anion Gap 21 (5-15) H Blood Urea Nitrogen 58 mg/dL (7-23) H Creatinine 2.9 mg/dL (0.7-1.2) H Estimat Glomerular Filtration Rate 21.8 mL/min (>60) Glucose Level 256 mg/dL (74-106) H Calcium Level 7.8 mg/dL (8.6-10.2) L Phosphorus Level 3.9 mg/dL (2.5-4.8) Troponin I 2.15 ng/mL (<=0.30) *H Albumin 2.4 g/dL (3.5-5.2) L Current Medications Medications (Trade) Dose Ordered Sig/Leslee Route PRN Reason Start Time Stop Time Status Last Admin Dose Admin Acetaminophen (Tylenol) 650 mg Q4H PRN ORAL T>100.5 09/15/16 07:15 10/15/16 07:14 09/16/16 05:06 Albuterol/ Ipratropium (DuoNeb 0.5-3(2.5)mg/3ml) 3 ml Q4H PRN HHN Shortness of Breath 09/15/16 07:15 09/20/16 07:14 Aspirin (Ecotrin) 81 mg DAILY ORAL 09/16/16 09:00 10/16/16 08:59 09/16/16 08:51 Atorvastatin Calcium (Lipitor) 40 mg BEDTIME ORAL 09/15/16 21:00 10/15/16 20:59 09/15/16 21:14 Cefepime HCl 1 gm/ Dextrose 55 ml @ 110 mls/hr Q24H IVPB 09/15/16 16:00 09/22/16 15:59 09/16/16 16:19 Dextrose (Dextrose 50%) STAT PRN IV Hypoglycemia 09/15/16 20:45 10/15/16 20:44 Insulin Aspart (NovoLOG) BEFORE MEALS AND HS SUBQ 09/15/16 21:30 10/15/16 21:29 09/16/16 16:22 Levofloxacin (Levaquin) 50 ml @ 50 mls/hr Q24H IVPB 09/16/16 11:00 09/23/16 10:59 09/16/16 11:16 Lorazepam 2 mg 2 mg Q2H PRN IV For Anxiety 09/15/16 07:15 09/22/16 07:14 Metoprolol Tartrate (Lopressor) 12.5 mg Q12HR ORAL 09/15/16 13:00 10/15/16 12:59 09/16/16 08:51 Morphine Sulfate (Morphine Sulfate) 4 mg Q4H PRN IVP Severe Pain (Pain Scale 7-10) 09/15/16 07:15 09/22/16 07:14 09/16/16 16:29 Nitroglycerin (Nitro-Bid) 1 inch TID@0600,1200,1800 TOPIC 09/16/16 18:00 10/16/16 17:59 Ondansetron HCl (Zofran) 4 mg Q6H PRN IVP Nausea & Vomiting 09/15/16 07:15 10/15/16 07:14 Polyethylene Glycol (Miralax) 17 gm DAILYPRN PRN ORAL Constipation 09/15/16 07:15 10/15/16 07:14 Temazepam (Restoril) 15 mg HSPRN PRN ORAL Insomnia 09/15/16 21:00 09/22/16 20:59 DARIUS SANCHEZ M.D. Sep 16, 2016 18:29
[2016-09-16] MEDS: Nitroglycerin 2% oint pkt TOPIC SCH (18:40)
[2016-09-16 19:00] VITALS: BP 145/82
--- NOTE | 2016-09-16 19:29 | Cardiology Progress Note ---
Assessment/Plan Assessment/Plan pneumonia nstemi probably demand and underlying cad chf icm dm poor present control renal insuf hs of tb abn ekg on anticoagulation bb ecotrin statin echo note ef 30-35% iv abx acei low dose trial will give low dose of lasix if cr stable tomorrow cxr noted reviewed ekg nioted reviewed tele reviewed will need cath once pulm smith stable Subjective Cardiovascular: Denies: chest pain, lightheadedness Respiratory: Reports: cough, shortness of breath Gastrointestinal/Abdominal: Reports: abdominal pain Genitourinary: Denies: burning Objective Last 24 Hour Vital Signs Date Time Temp Pulse Resp B/P Pulse Ox O2 Delivery O2 Flow Rate FiO2 09/16/16 18:40 136/82 09/16/16 17:11 91 22 93 09/16/16 16:00 96.8 100 20 136/82 93 Nasal Cannula 10.0 09/16/16 15:25 93 22 93 09/16/16 12:00 97.2 94 26 137/83 94 Venturi Mask 40 09/16/16 11:05 90 20 94 09/16/16 09:22 91 22 93 09/16/16 08:51 93 137/84 09/16/16 08:00 97.9 94 24 138/79 92 Venturi Mask 40 09/16/16 07:57 91 09/16/16 07:33 Venturi Mask 15.0 70 09/16/16 07:33 93 T-piece 70 09/16/16 07:33 95 22 93 09/16/16 05:22 93 22 94 09/16/16 04:12 95 09/16/16 04:00 97.3 99 24 137/84 100 Venturi Mask 09/16/16 03:23 102 24 95 09/16/16 01:09 99 22 97 09/16/16 00:56 97.4 94 24 119/75 95 Venturi Mask 09/15/16 23:48 96 09/15/16 22:50 102 22 96 09/15/16 21:14 100 130/78 09/15/16 20:02 97.8 100 19 130/78 94 09/15/16 20:00 97 09/15/16 19:58 97.8 General Appearance: no apparent distress Neck: no JVD Cardiovascular: normal rate Respiratory/Chest: crackles/rales - l3eft side worse than right Abdomen: normal bowel sounds, non tender, soft Extremities: no swelling Intake and Output 09/15/16 09/16/16 19:00 07:00 Intake Total 320 ml Output Total 600 ml 400 ml Balance -600 ml -80 ml Intake Oral 320 ml Output Urine Total 600 ml 400 ml Laboratory Tests Test 09/15/16 21:20 09/16/16 03:35 Urine Osmolality Pending White Blood Count 9.8 K/UL (4.8-10.8) Red Blood Count 3.70 M/UL (4.70-6.10) L Hemoglobin 10.7 G/DL (14.2-18.0) L Hematocrit 31.9 % (42.0-52.0) L Mean Corpuscular Volume 86 FL (80-99) Mean Corpuscular Hemoglobin 29.0 PG (27.0-31.0) Mean Corpuscular Hemoglobin Concent 33.6 G/DL (32.0-36.0) Red Cell Distribution Width 12.0 % (11.6-14.8) Platelet Count 184 K/UL (150-450) Mean Platelet Volume 8.9 FL (6.5-10.1) Neutrophils (%) (Auto) 84.0 % (45.0-75.0) H Lymphocytes (%) (Auto) 8.9 % (20.0-45.0) L Monocytes (%) (Auto) 6.7 % (1.0-10.0) Eosinophils (%) (Auto) 0.1 % (0.0-3.0) Basophils (%) (Auto) 0.4 % (0.0-2.0) Sodium Level 136 mEQ/L (135-145) Potassium Level 5.1 mEQ/L (3.4-4.9) H Chloride Level 99 mEQ/L (98-107) Carbon Dioxide Level 16 mEQ/L (20-30) L Anion Gap 21 (5-15) H Blood Urea Nitrogen 58 mg/dL (7-23) H Creatinine 2.9 mg/dL (0.7-1.2) H Estimat Glomerular Filtration Rate 21.8 mL/min (>60) Glucose Level 256 mg/dL (74-106) H Calcium Level 7.8 mg/dL (8.6-10.2) L Phosphorus Level 3.9 mg/dL (2.5-4.8) Troponin I 2.15 ng/mL (<=0.30) *H Albumin 2.4 g/dL (3.5-5.2) L Microbiology Date/Time Source Procedure Growth Status 09/15/16 04:39 Blood Blood Culture - Preliminary NO GROWTH AFTER 24 HOURS Resulted 09/15/16 04:20 Blood Blood Culture - Preliminary NO GROWTH AFTER 24 HOURS Resulted DESIREE ROPER Sep 16, 2016 19:29
[2016-09-17] VITALS: BP 142/84
[2016-09-17 04:30] VITALS: BP 141/75
[2016-09-17 06:16] LABS: BASOPHILS % (AUTO) 0.5 % (0.0-2.0); EOSINOPHILS % (AUTO) 0.2 % (0.0-3.0); LYMPHOCYTES % (AUTO) 12.1 % (20.0-45.0); MEAN CORPUSCULAR HEMOGLOBIN 29.2 PG (27.0-31.0); MEAN CORPUSCULAR HGB CONC 34.3 G/DL (32.0-36.0); MEAN CORPUSCULAR VOLUME 85 FL (80-99); MEAN PLATELET VOLUME 7.8 FL (6.5-10.1); MONOCYTES % (AUTO) 8.8 % (1.0-10.0); NEUTROPHILS % (AUTO) 78.4 % (45.0-75.0); PLATELET COUNT 208 K/UL (150-450); RED BLOOD COUNT 3.54 M/UL (4.70-6.10); RED CELL DISTRIBUTION WIDTH 11.7 % (11.6-14.8); WHITE BLOOD COUNT 7.3 K/UL (4.8-10.8)
[2016-09-17] MEDS: Nitroglycerin 2% oint pkt TOPIC SCH ×3 (06:56→18:19)
[2016-09-17] MEDS: NovoLOG Insulin Flexpen SUBQ SCH ×4 (06:59→21:23)
[2016-09-17 07:09] LABS: HEMOGLOBIN A1C 10.6 % (< 6.0)
[2016-09-17 07:23] LABS: ALANINE AMINOTRANSFERASE 17 U/L (3-41); ALBUMIN/GLOBULIN RATIO 0.6 (1.0-2.7); ANION GAP 19 (5-15); ASPARTATE AMINO TRANSFERASE 20 U/L (5-40); CALCIUM 8.1 mg/dL (8.6-10.2); CARBON DIOXIDE 19 mEQ/L (20-30); CHLORIDE 95 mEQ/L (98-107); CHOLESTEROL 135 mg/dL (< 200); CHOLESTEROL/HDL RATIO 3.5 (3.3-4.4); CRP QUANT 17.5 mg/dL (< 0.5); HEMOLYSIS 9; LDL CHOLESTEROL (CALC.) 66 mg/dL (60-99); MAGNESIUM 2.3 mg/dL (1.7-2.5); PHOSPHORUS 4.2 mg/dL (2.5-4.8); POTASSIUM 4.6 mEQ/L (3.4-4.9); SODIUM 133 mEQ/L (135-145); TOTAL PROTEIN 5.7 g/dL (6.6-8.7); URIC ACID 10.4 mg/dL (3.0-7.5)
[2016-09-17 07:28] LABS: FERRITIN 256 ng/mL (10-230); THYROID STIMULATING HORMONE 0.661 uIU/mL (0.300-4.500)
[2016-09-17 07:52] LABS: TROPONIN I 2.15 ng/mL (<=0.30)
[2016-09-17 08:00] VITALS: BP 121/75
[2016-09-17] MEDS: Metoprolol Tartrate 12.5mg TAB ORAL SCH (10:02)
[2016-09-17] MEDS: Aspirin EC 81mg tab ORAL SCH (10:02)
[2016-09-17 10:15] LABS: BASOPHILS % (AUTO) 0.6 % (0.0-2.0); EOSINOPHILS % (AUTO) 0.5 % (0.0-3.0); LYMPHOCYTES % (AUTO) 8.5 % (20.0-45.0); MEAN CORPUSCULAR HGB CONC 33.4 G/DL (32.0-36.0); MEAN CORPUSCULAR VOLUME 84 FL (80-99); MEAN PLATELET VOLUME 6.7 FL (6.5-10.1); MONOCYTES % (AUTO) 9.2 % (1.0-10.0); NEUTROPHILS % (AUTO) 81.2 % (45.0-75.0); PLATELET COUNT 230 K/UL (150-450); RED BLOOD COUNT 3.92 M/UL (4.70-6.10); RED CELL DISTRIBUTION WIDTH 11.7 % (11.6-14.8); WHITE BLOOD COUNT 7.4 K/UL (4.8-10.8)
[2016-09-17] MEDS ORDERED: Heparin 25,000u/D5W 500ml 500 ML IV SCH (10:30)
[2016-09-17] MEDS ORDERED: Heparin 5000 units/ml inj IV ONE ×2 (10:30→19:00)
[2016-09-17] MEDS: Levofloxacin 250mg/D5W 50ml IVPB SCH (10:52)
--- NOTE | 2016-09-17 11:29 | General Progress Note ---
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 and HypoAlbuminemia Respiratory failure with hypoxia NSTEMI, initial episode of care- EjFx 30-35% Pulmonary edema cardiac cause Hyperglycemia due to type 1 diabetes mellitus Hyperkalemia Inguinal hernia of right side without obstruction or gangrene Plan; Avoid Nephrotoxics- increase lopressor Monitor renal parameters Aim to correct electrolytes , BS, BP add nitrates Subjective ROS Limited/Unobtainable: No Constitutional: Reports: malaise, weakness Allergies: Coded Allergies: No Known Allergies (Unverified , 07/30/13) Objective Last 24 Hour Vital Signs Date Time Temp Pulse Resp B/P Pulse Ox O2 Delivery O2 Flow Rate FiO2 09/17/16 10:02 99 121/75 09/17/16 08:00 97.2 99 21 121/75 95 Mechanical Ventilator 40 09/17/16 06:56 141/75 09/17/16 06:45 96 T-piece 10.0 40 09/17/16 06:45 Venturi Mask 10.0 40 09/17/16 04:30 97.4 98 141/75 Venturi Mask 40 09/17/16 03:41 94 09/17/16 00:00 97.4 100 24 142/84 94 Venturi Mask 09/16/16 23:51 102 09/16/16 21:28 100 145/82 09/16/16 20:35 95 T-piece 10.0 40 09/16/16 20:35 Venturi Mask 10.0 40 09/16/16 20:00 102 09/16/16 19:00 97.5 100 20 145/82 92 Nasal Cannula 10.0 09/16/16 18:40 136/82 09/16/16 17:11 91 22 93 09/16/16 16:00 96.8 100 20 136/82 93 Nasal Cannula 10.0 09/16/16 16:00 104 09/16/16 15:25 93 22 93 09/16/16 12:00 97.2 94 26 137/83 94 Venturi Mask 40 Intake and Output 09/16/16 09/17/16 19:00 07:00 Intake Total 50 ml 200 ml Output Total 450 ml 500 ml Balance -400 ml -300 ml Intake Oral 200 ml IV Total 50 ml Output Urine Total 450 ml 500 ml Laboratory Tests 09/17/16 03:45: White Blood Count 7.3, Red Blood Count 3.54L, Hemoglobin 10.3L, Hematocrit 30.1L , Mean Corpuscular Volume 85, Mean Corpuscular Hemoglobin 29.2, Mean Corpuscular Hemoglobin Concent 34.3, Red Cell Distribution Width 11.7, Platelet Count 208, Mean Platelet Volume 7.8, Neutrophils (%) (Auto) 78.4H, Lymphocytes ( %) (Auto) 12.1L, Monocytes (%) (Auto) 8.8, Eosinophils (%) (Auto) 0.2, Basophils (%) (Auto) 0.5, Sodium Level 133L, Potassium Level 4.6, Chloride Level 95L, Carbon Dioxide Level 19L, Anion Gap 19H, Blood Urea Nitrogen 62H, Creatinine 3.0H, Estimat Glomerular Filtration Rate 21.0, Glucose Level 149#H, Hemoglobin A1c 10.6H, Uric Acid 10.4H, Calcium Level 8.1L, Phosphorus Level 4.2 , Magnesium Level 2.3, Ferritin 256H, Total Bilirubin 0.3, Gamma Glutamyl Transpeptidase 19, Aspartate Amino Transf (AST/SGOT) 20, Alanine Aminotransferase (ALT/SGPT) 17, Alkaline Phosphatase 61, Total Creatine Kinase 126, Troponin I 2.15*H, C-Reactive Protein, Quantitative 17.5H, Pro-B-Type Natriuretic Peptide 36234I, Total Protein 5.7L, Albumin 2.2L, Globulin 3.5, Albumin/Globulin Ratio 0.6L, Triglycerides Level 152H, Cholesterol Level 135, LDL Cholesterol 66, HDL Cholesterol 39, Cholesterol/HDL Ratio 3.5, Vitamin B12 Level 390, Folate [Pending], Thyroid Stimulating Hormone (TSH) 0.661 09/17/16 10:00: White Blood Count 7.4, Red Blood Count 3.92L, Hemoglobin 11.0L, Hematocrit 32.9L , Mean Corpuscular Volume 84, Mean Corpuscular Hemoglobin 28.0, Mean Corpuscular Hemoglobin Concent 33.4, Red Cell Distribution Width 11.7, Platelet Count 230, Mean Platelet Volume 6.7, Neutrophils (%) (Auto) 81.2H, Lymphocytes ( %) (Auto) 8.5L, Monocytes (%) (Auto) 9.2, Eosinophils (%) (Auto) 0.5, Basophils (%) (Auto) 0.6, Activated Partial Thromboplast Time 36H Height (Feet): 5 Height (Inches): 3.00 Weight (Pounds): 145 General Appearance: mild distress Neck: stiff neck Cardiovascular: tachycardia Respiratory/Chest: decreased breath sounds Abdomen: soft Edema: 1+ Arm (L), 1+ Arm (R), 1+ Leg (L), 1+ Leg (R), 1+ Pedal (L), 1+ Pedal ( R), 1+ Generalized Objective other PE no change RASHMI VILLALOBOS Sep 17, 2016 11:28
[2016-09-17 12:00] VITALS: BP 138/76
--- NOTE | 2016-09-17 13:03 | Pulmonology Progress Note ---
Assessment/Plan Problems: (1) Respiratory failure with hypoxia (2) NSTEMI, initial episode of care (3) Pneumonia (4) Acute kidney failure (5) Hyperkalemia (6) Diabetes mellitus Assessment/Plan start lasix drip IV abx check cultures, no sputum yet, echo noted, EF of 30 chest PT cxr reviewed, still extensive infiltrate. cardio and Id f/u d/w dr Silva, will need cardiac cath keep in krishna/teli Subjective ROS Limited/Unobtainable: No Interval Events: still on face mask Allergies: Coded Allergies: No Known Allergies (Unverified , 07/30/13) Objective Last 24 Hour Vital Signs Date Time Temp Pulse Resp B/P Pulse Ox O2 Delivery O2 Flow Rate FiO2 09/17/16 10:02 99 121/75 09/17/16 08:00 97.2 99 21 121/75 95 Mechanical Ventilator 40 09/17/16 08:00 97 09/17/16 06:56 141/75 09/17/16 06:45 96 T-piece 10.0 40 09/17/16 06:45 Venturi Mask 10.0 40 09/17/16 04:30 97.4 98 141/75 Venturi Mask 40 09/17/16 03:41 94 09/17/16 00:00 97.4 100 24 142/84 94 Venturi Mask 09/16/16 23:51 102 09/16/16 21:28 100 145/82 09/16/16 20:35 95 T-piece 10.0 40 09/16/16 20:35 Venturi Mask 10.0 40 09/16/16 20:00 102 09/16/16 19:00 97.5 100 20 145/82 92 Nasal Cannula 10.0 09/16/16 18:40 136/82 09/16/16 17:11 91 22 93 09/16/16 16:00 96.8 100 20 136/82 93 Nasal Cannula 10.0 09/16/16 16:00 104 09/16/16 15:25 93 22 93 Intake and Output 09/16/16 09/17/16 19:00 07:00 Intake Total 50 ml 200 ml Output Total 450 ml 500 ml Balance -400 ml -300 ml Intake Oral 200 ml IV Total 50 ml Output Urine Total 450 ml 500 ml HEENT: normocephalic, atraumatic Respiratory/Chest: crackles/rales Cardiovascular: normal peripheral pulses, normal rate Abdomen: normal bowel sounds, soft, non tender Genitourinary: normal external genitalia Extremities: no cyanosis Skin: no rash 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 Microbiology Date/Time Source Procedure Growth Status 09/15/16 04:39 Blood Blood Culture - Preliminary NO GROWTH AFTER 48 HOURS Resulted 09/15/16 04:20 Blood Blood Culture - Preliminary NO GROWTH AFTER 48 HOURS Resulted 09/16/16 02:30 Urine,Clean Catch Urine Culture - Preliminary NO GROWTH AFTER 24 HOURS Resulted Laboratory Tests 09/17/16 03:45: White Blood Count 7.3, Red Blood Count 3.54L, Hemoglobin 10.3L, Hematocrit 30.1L , Mean Corpuscular Volume 85, Mean Corpuscular Hemoglobin 29.2, Mean Corpuscular Hemoglobin Concent 34.3, Red Cell Distribution Width 11.7, Platelet Count 208, Mean Platelet Volume 7.8, Neutrophils (%) (Auto) 78.4H, Lymphocytes ( %) (Auto) 12.1L, Monocytes (%) (Auto) 8.8, Eosinophils (%) (Auto) 0.2, Basophils (%) (Auto) 0.5, Sodium Level 133L, Potassium Level 4.6, Chloride Level 95L, Carbon Dioxide Level 19L, Anion Gap 19H, Blood Urea Nitrogen 62H, Creatinine 3.0H, Estimat Glomerular Filtration Rate 21.0, Glucose Level 149#H, Hemoglobin A1c 10.6H, Uric Acid 10.4H, Calcium Level 8.1L, Phosphorus Level 4.2 , Magnesium Level 2.3, Ferritin 256H, Total Bilirubin 0.3, Gamma Glutamyl Transpeptidase 19, Aspartate Amino Transf (AST/SGOT) 20, Alanine Aminotransferase (ALT/SGPT) 17, Alkaline Phosphatase 61, Total Creatine Kinase 126, Troponin I 2.15*H, C-Reactive Protein, Quantitative 17.5H, Pro-B-Type Natriuretic Peptide 69441O, Total Protein 5.7L, Albumin 2.2L, Globulin 3.5, Albumin/Globulin Ratio 0.6L, Triglycerides Level 152H, Cholesterol Level 135, LDL Cholesterol 66, HDL Cholesterol 39, Cholesterol/HDL Ratio 3.5, Vitamin B12 Level 390, Folate [Pending], Thyroid Stimulating Hormone (TSH) 0.661 09/17/16 10:00: White Blood Count 7.4, Red Blood Count 3.92L, Hemoglobin 11.0L, Hematocrit 32.9L , Mean Corpuscular Volume 84, Mean Corpuscular Hemoglobin 28.0, Mean Corpuscular Hemoglobin Concent 33.4, Red Cell Distribution Width 11.7, Platelet Count 230, Mean Platelet Volume 6.7, Neutrophils (%) (Auto) 81.2H, Lymphocytes ( %) (Auto) 8.5L, Monocytes (%) (Auto) 9.2, Eosinophils (%) (Auto) 0.5, Basophils (%) (Auto) 0.6, Activated Partial Thromboplast Time 36H Current Medications Medications (Trade) Dose Ordered Sig/Leslee Route PRN Reason Start Time Stop Time Status Last Admin Dose Admin Acetaminophen (Tylenol) 650 mg Q4H PRN ORAL T>100.5 09/15/16 07:15 10/15/16 07:14 09/16/16 05:06 Albuterol/ Ipratropium (DuoNeb 0.5-3(2.5)mg/3ml) 3 ml Q4H PRN HHN Shortness of Breath 09/15/16 07:15 09/20/16 07:14 Aspirin (Ecotrin) 81 mg DAILY ORAL 09/16/16 09:00 10/16/16 08:59 09/17/16 10:02 Atorvastatin Calcium (Lipitor) 40 mg BEDTIME ORAL 09/15/16 21:00 10/15/16 20:59 09/16/16 21:28 Cefepime HCl 1 gm/ Dextrose 55 ml @ 110 mls/hr Q24H IVPB 09/15/16 16:00 09/22/16 15:59 09/16/16 16:19 Dextrose (Dextrose 50%) STAT PRN IV Hypoglycemia 09/15/16 20:45 10/15/16 20:44 Furosemide/ Dextrose (Lasix/D5W) 110 ml @ 11 mls/hr Q10H IV 09/17/16 12:45 10/17/16 12:44 UNV Heparin Sodium/ Dextrose (Heparin) 500 ml @ 15.785 mls/ hr adjust per protocol IV 09/17/16 10:30 10/17/16 10:29 Insulin Aspart (NovoLOG) BEFORE MEALS AND HS SUBQ 09/15/16 21:30 10/15/16 21:29 09/17/16 12:54 Levofloxacin (Levaquin) 50 ml @ 50 mls/hr Q24H IVPB 09/16/16 11:00 09/23/16 10:59 09/17/16 10:52 Lorazepam 2 mg 2 mg Q2H PRN IV For Anxiety 09/15/16 07:15 09/22/16 07:14 Metoprolol Tartrate (Lopressor) 25 mg Q12HR ORAL 09/17/16 21:00 10/17/16 20:59 Morphine Sulfate (Morphine Sulfate) 4 mg Q4H PRN IVP Severe Pain (Pain Scale 7-10) 09/15/16 07:15 09/22/16 07:14 09/16/16 16:29 Nitroglycerin 1 inch 1 inch TID@0600,1200,1800 TOPIC 09/16/16 18:00 10/16/16 17:59 09/17/16 06:56 Ondansetron HCl (Zofran) 4 mg Q6H PRN IVP Nausea & Vomiting 09/15/16 07:15 10/15/16 07:14 Pantoprazole 40 mg 40 mg EVERY 12 HOURS ORAL 09/17/16 11:30 10/17/16 11:29 Polyethylene Glycol (Miralax) 17 gm DAILYPRN PRN ORAL Constipation 09/15/16 07:15 10/15/16 07:14 Temazepam (Restoril) 15 mg HSPRN PRN ORAL Insomnia 09/15/16 21:00 09/22/16 20:59 09/17/16 01:04 SIM ROJAS Sep 17, 2016 13:03
[2016-09-17 16:00] VITALS: BP 128/74
[2016-09-17] MEDS: Cefepime HCl 1 GM in D5W 55 ML IVPB SCH (16:23)
--- NOTE | 2016-09-17 19:04 | Cardiology Progress Note ---
Assessment/Plan Assessment/Plan pneumonia nstemi probably demand and underlying cad chf icm dm poor present control renal insuf hs of tb abn ekg abd pain cardiorenal syndrome on anticoagulation with heparin bb ecotrin statin echo note ef 30-35% iv abx will ocnosder lwo dose hydralazine for afterload reduction d/w dr garza now on lasix drip responding but he has nto yet felt that differrent cxr noted reviewed ekg nioted reviewed tele reviewed will need cath once pulm smith stable Subjective Cardiovascular: Denies: chest pain, lightheadedness, palpitations Respiratory: Reports: cough, shortness of breath Gastrointestinal/Abdominal: Reports: abdominal pain Genitourinary: Denies: burning Objective Last 24 Hour Vital Signs Date Time Temp Pulse Resp B/P Pulse Ox O2 Delivery O2 Flow Rate FiO2 09/17/16 18:19 128/74 09/17/16 16:00 97.5 98 19 128/74 97 40 09/17/16 16:00 99 09/17/16 13:08 138/76 09/17/16 12:00 97.9 95 20 138/76 96 Venturi Mask 40 09/17/16 12:00 92 09/17/16 10:02 99 121/75 09/17/16 08:00 97.2 99 21 121/75 95 Venturi Mask 40 09/17/16 08:00 97 09/17/16 06:56 141/75 09/17/16 06:45 96 T-piece 10.0 40 09/17/16 06:45 Venturi Mask 10.0 40 09/17/16 04:30 97.4 98 141/75 Venturi Mask 40 09/17/16 03:41 94 09/17/16 00:00 97.4 100 24 142/84 94 Venturi Mask 09/16/16 23:51 102 09/16/16 21:28 100 145/82 09/16/16 20:35 95 T-piece 10.0 40 09/16/16 20:35 Venturi Mask 10.0 40 09/16/16 20:00 102 General Appearance: no apparent distress, alert Neck: supple Cardiovascular: normal rate, regular rhythm Respiratory/Chest: crackles/rales - left anterio base posteriiorly clear Abdomen: soft, tender Extremities: non-tender, no swelling Intake and Output 09/16/16 09/17/16 19:00 07:00 Intake Total 50 ml 200 ml Output Total 450 ml 500 ml Balance -400 ml -300 ml Intake Oral 200 ml IV Total 50 ml Output Urine Total 450 ml 500 ml Laboratory Tests Test 09/17/16 03:45 09/17/16 10:00 09/17/16 17:45 White Blood Count 7.3 K/UL (4.8-10.8) 7.4 K/UL (4.8-10.8) Red Blood Count 3.54 M/UL (4.70-6.10) L 3.92 M/UL (4.70-6.10) L Hemoglobin 10.3 G/DL (14.2-18.0) L 11.0 G/DL (14.2-18.0) L Hematocrit 30.1 % (42.0-52.0) L 32.9 % (42.0-52.0) L Mean Corpuscular Volume 85 FL (80-99) 84 FL (80-99) Mean Corpuscular Hemoglobin 29.2 PG (27.0-31.0) 28.0 PG (27.0-31.0) Mean Corpuscular Hemoglobin Concent 34.3 G/DL (32.0-36.0) 33.4 G/DL (32.0-36.0) Red Cell Distribution Width 11.7 % (11.6-14.8) 11.7 % (11.6-14.8) Platelet Count 208 K/UL (150-450) 230 K/UL (150-450) Mean Platelet Volume 7.8 FL (6.5-10.1) 6.7 FL (6.5-10.1) Neutrophils (%) (Auto) 78.4 % (45.0-75.0) H 81.2 % (45.0-75.0) H Lymphocytes (%) (Auto) 12.1 % (20.0-45.0) L 8.5 % (20.0-45.0) L Monocytes (%) (Auto) 8.8 % (1.0-10.0) 9.2 % (1.0-10.0) Eosinophils (%) (Auto) 0.2 % (0.0-3.0) 0.5 % (0.0-3.0) Basophils (%) (Auto) 0.5 % (0.0-2.0) 0.6 % (0.0-2.0) Sodium Level 133 mEQ/L (135-145) L Potassium Level 4.6 mEQ/L (3.4-4.9) Chloride Level 95 mEQ/L (98-107) L Carbon Dioxide Level 19 mEQ/L (20-30) L Anion Gap 19 (5-15) H Blood Urea Nitrogen 62 mg/dL (7-23) H Creatinine 3.0 mg/dL (0.7-1.2) H Estimat Glomerular Filtration Rate 21.0 mL/min (>60) Glucose Level 149 mg/dL (74-106) #H Hemoglobin A1c 10.6 % (< 6.0) H Uric Acid 10.4 mg/dL (3.0-7.5) H Calcium Level 8.1 mg/dL (8.6-10.2) L Phosphorus Level 4.2 mg/dL (2.5-4.8) Magnesium Level 2.3 mg/dL (1.7-2.5) Ferritin 256 ng/mL (10-230) H Total Bilirubin 0.3 mg/dL (0.0-1.2) Gamma Glutamyl Transpeptidase 19 U/L (8-61) Aspartate Amino Transf (AST/SGOT) 20 U/L (5-40) Alanine Aminotransferase (ALT/SGPT) 17 U/L (3-41) Alkaline Phosphatase 61 U/L (40-129) Total Creatine Kinase 126 U/L (38-174) Troponin I 2.15 ng/mL (<=0.30) *H C-Reactive Protein, Quantitative 17.5 mg/dL (< 0.5) H Pro-B-Type Natriuretic Peptide 04023 pg/mL (0-125) H Total Protein 5.7 g/dL (6.6-8.7) L Albumin 2.2 g/dL (3.5-5.2) L Globulin 3.5 g/dL Albumin/Globulin Ratio 0.6 (1.0-2.7) L Triglycerides Level 152 mg/dL (< 150) H Cholesterol Level 135 mg/dL (< 200) LDL Cholesterol 66 mg/dL (60-99) HDL Cholesterol 39 mg/dL (> 60) Cholesterol/HDL Ratio 3.5 (3.3-4.4) Vitamin B12 Level 390 pg/mL (211-946) Folate Pending Thyroid Stimulating Hormone (TSH) 0.661 uIU/mL (0.300-4.500) Activated Partial Thromboplast Time 36 SEC (23-33) H 44 SEC (23-33) H Cortisol Pending Microbiology Date/Time Source Procedure Growth Status 09/15/16 04:39 Blood Blood Culture - Preliminary NO GROWTH AFTER 48 HOURS Resulted 09/15/16 04:20 Blood Blood Culture - Preliminary NO GROWTH AFTER 48 HOURS Resulted 09/16/16 02:30 Urine,Clean Catch Urine Culture - Preliminary NO GROWTH AFTER 24 HOURS Resulted DESIREE ROPER Sep 17, 2016 19:04
[2016-09-17] MEDS: HydrALAZINE 10mg Tab ORAL SCH (19:47)
[2016-09-17 20:00] VITALS: BP 135/82
[2016-09-17] MEDS: Metoprolol 25mg tab ORAL SCH (21:16)
[2016-09-18] VITALS: BP 114/73
[2016-09-18] MEDS ORDERED: Heparin 25,000u/D5W 500ml 500 ML IV SCH ×2 (03:05→11:30)
[2016-09-18 03:59] VITALS: BP 133/73
[2016-09-18 06:26] LABS: BASOPHILS % (AUTO) 0.4 % (0.0-2.0); EOSINOPHILS % (AUTO) 0.6 % (0.0-3.0); LYMPHOCYTES % (AUTO) 11.3 % (20.0-45.0); MEAN CORPUSCULAR HEMOGLOBIN 29.2 PG (27.0-31.0); MEAN CORPUSCULAR HGB CONC 34.3 G/DL (32.0-36.0); MEAN CORPUSCULAR VOLUME 85 FL (80-99); MEAN PLATELET VOLUME 7.4 FL (6.5-10.1); MONOCYTES % (AUTO) 10.6 % (1.0-10.0); NEUTROPHILS % (AUTO) 77.1 % (45.0-75.0); PLATELET COUNT 211 K/UL (150-450); RED BLOOD COUNT 3.41 M/UL (4.70-6.10); RED CELL DISTRIBUTION WIDTH 11.8 % (11.6-14.8); WHITE BLOOD COUNT 7.1 K/UL (4.8-10.8)
[2016-09-18] MEDS: HydrALAZINE 10mg Tab ORAL SCH ×3 (06:40→21:12)
[2016-09-18] MEDS: Nitroglycerin 2% oint pkt TOPIC SCH ×3 (06:41→18:25)
[2016-09-18] MEDS: NovoLOG Insulin Flexpen SUBQ SCH ×4 (06:42→21:10)
[2016-09-18 06:46] LABS: ALBUMIN/GLOBULIN RATIO 0.6 (1.0-2.7); CALCIUM 8.1 mg/dL (8.6-10.2); CREATININE 2.8 mg/dL (0.7-1.2); GLOMERULAR FILTRATION RATE 22.7 mL/min (>60); MAGNESIUM 2.3 mg/dL (1.7-2.5); PHOSPHORUS 4.9 mg/dL (2.5-4.8); POTASSIUM 4.1 mEQ/L (3.4-4.9); TOTAL PROTEIN 5.5 g/dL (6.6-8.7); TROPONIN I 1.16 ng/mL (<=0.30); URIC ACID 10.4 mg/dL (3.0-7.5)
[2016-09-18 08:00] VITALS: BP 132/80
--- NOTE | 2016-09-18 10:22 | General Progress Note ---
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 and HypoAlbuminemia Respiratory failure with hypoxia NSTEMI, initial episode of care- EjFx 30-35% Pulmonary edema cardiac cause Hyperglycemia due to type 1 diabetes mellitus Hyperkalemia Inguinal hernia of right side without obstruction or gangrene Plan; Avoid Nephrotoxics- increase lopressor Monitor renal parameters Aim to correct electrolytes , BS, BP add nitrates Subjective ROS Limited/Unobtainable: No Constitutional: Reports: malaise, weakness Allergies: Coded Allergies: No Known Allergies (Unverified , 07/30/13) Objective Last 24 Hour Vital Signs Date Time Temp Pulse Resp B/P Pulse Ox O2 Delivery O2 Flow Rate FiO2 09/18/16 08:00 97.3 91 16 132/80 97 Nasal Cannula 3.5 09/18/16 07:00 Nasal Cannula 4.0 36 09/18/16 07:00 97 Nasal Cannula 4.0 36 09/18/16 06:41 135/72 09/18/16 06:40 135/72 09/18/16 04:00 92 09/18/16 03:59 97.5 90 20 133/73 Nasal Cannula 3.0 09/18/16 00:00 97.7 86 24 114/73 95 Venturi Mask 09/18/16 00:00 85 09/17/16 21:16 99 135/82 09/17/16 20:00 97.8 99 17 135/82 97 Venturi Mask 40 09/17/16 20:00 96 09/17/16 19:47 128/74 09/17/16 19:00 97 Venturi Mask 10.0 40 09/17/16 19:00 Venturi Mask 10.0 40 09/17/16 18:19 128/74 09/17/16 16:00 97.5 98 19 128/74 97 40 09/17/16 16:00 99 09/17/16 13:08 138/76 09/17/16 12:00 97.9 95 20 138/76 96 Venturi Mask 40 09/17/16 12:00 92 Intake and Output 09/17/16 09/18/16 19:00 07:00 Intake Total 789.05 ml 398.388 ml Output Total 500 ml 2400 ml Balance 289.05 ml -2001.612 ml Intake Oral 120 ml 150 ml IV Total 669.05 ml 248.388 ml Output Urine Total 500 ml 2400 ml Laboratory Tests 09/17/16 17:45: Activated Partial Thromboplast Time 44H, Cortisol [Pending] 09/18/16 00:50: Activated Partial Thromboplast Time > 200*H 09/18/16 04:15: White Blood Count 7.1, Red Blood Count 3.41L, Hemoglobin 10.0L, Hematocrit 29.0L , Mean Corpuscular Volume 85, Mean Corpuscular Hemoglobin 29.2, Mean Corpuscular Hemoglobin Concent 34.3, Red Cell Distribution Width 11.8, Platelet Count 211, Mean Platelet Volume 7.4, Neutrophils (%) (Auto) 77.1H, Lymphocytes ( %) (Auto) 11.3L, Monocytes (%) (Auto) 10.6H, Eosinophils (%) (Auto) 0.6, Basophils (%) (Auto) 0.4, Sodium Level 132L, Potassium Level 4.1, Chloride Level 93L, Carbon Dioxide Level 19L, Anion Gap 20H, Blood Urea Nitrogen 60H, Creatinine 2.8H, Estimat Glomerular Filtration Rate 22.7, Glucose Level 226H, Uric Acid 10.4H, Calcium Level 8.1L, Phosphorus Level 4.9H, Magnesium Level 2.3 , Total Bilirubin 0.3, Aspartate Amino Transf (AST/SGOT) 15, Alanine Aminotransferase (ALT/SGPT) 14, Alkaline Phosphatase 56, Troponin I 1.16*H, Pro- B-Type Natriuretic Peptide 97805F, Total Protein 5.5L, Albumin 2.1L, Globulin 3.4, Albumin/Globulin Ratio 0.6L Height (Feet): 5 Height (Inches): 3.00 Weight (Pounds): 145 General Appearance: no apparent distress, lethargic Cardiovascular: tachycardia Respiratory/Chest: decreased breath sounds Abdomen: soft, distended Objective other PE no change RASHMI VILLALOBOS 10, 2017 10:22
[2016-09-18] MEDS: Aspirin EC 81mg tab ORAL SCH (10:29)
[2016-09-18] MEDS: Metoprolol 25mg tab ORAL SCH ×2 (10:29→21:07)
[2016-09-18] MEDS: Levofloxacin 250mg/D5W 50ml IVPB SCH (10:32)
[2016-09-18] MEDS ORDERED: Heparin 5000 units/ml inj IV ONE (11:15)
--- NOTE | 2016-09-18 11:25 | Infectious Diseases Prog Note ---
Assessment/Plan Assessment/Plan A: The patient is a 66-year-old male with Sepsis Pneumonia Chest x-ray: bilateral left greater than right parenchymal disease , no changes Diabetes. COPD / Asthma. History of inguinal hernia. Hematuria , Hx PLAN: cont patient on cefepime and Levaquin d # 4 / 7 Monitor CBC. Monitor BMP. Monitor cultures, blood Subjective Allergies: Coded Allergies: No Known Allergies (Unverified , 07/30/13) Objective Vital Signs Last 24 Hour Vital Signs Date Time Temp Pulse Resp B/P Pulse Ox O2 Delivery O2 Flow Rate FiO2 09/18/16 10:29 85 124/72 09/18/16 08:00 97.3 91 16 132/80 97 Nasal Cannula 3.5 09/18/16 07:00 Nasal Cannula 4.0 36 09/18/16 07:00 97 Nasal Cannula 4.0 36 09/18/16 06:41 135/72 09/18/16 06:40 135/72 09/18/16 04:00 92 09/18/16 03:59 97.5 90 20 133/73 Nasal Cannula 3.0 09/18/16 00:00 97.7 86 24 114/73 95 Venturi Mask 09/18/16 00:00 85 09/17/16 21:16 99 135/82 09/17/16 20:00 97.8 99 17 135/82 97 Venturi Mask 40 09/17/16 20:00 96 09/17/16 19:47 128/74 09/17/16 19:00 97 Venturi Mask 10.0 40 09/17/16 19:00 Venturi Mask 10.0 40 09/17/16 18:19 128/74 09/17/16 16:00 97.5 98 19 128/74 97 40 09/17/16 16:00 99 09/17/16 13:08 138/76 09/17/16 12:00 97.9 95 20 138/76 96 Venturi Mask 40 09/17/16 12:00 92 Height (Feet): 5 Height (Inches): 3.00 Weight (Pounds): 145 Microbiology Date/Time Source Procedure Growth Status 09/16/16 02:30 Urine,Clean Catch Urine Culture - Final NO GROWTH AFTER 48 HOURS Complete Laboratory Tests Test 09/17/16 17:45 09/18/16 00:50 09/18/16 04:15 09/18/16 10:00 Activated Partial Thromboplast Time 44 SEC (23-33) H > 200 SEC (23-33) *H 57 SEC (23-33) H Cortisol Pending White Blood Count 7.1 K/UL (4.8-10.8) Red Blood Count 3.41 M/UL (4.70-6.10) L Hemoglobin 10.0 G/DL (14.2-18.0) L Hematocrit 29.0 % (42.0-52.0) L Mean Corpuscular Volume 85 FL (80-99) Mean Corpuscular Hemoglobin 29.2 PG (27.0-31.0) Mean Corpuscular Hemoglobin Concent 34.3 G/DL (32.0-36.0) Red Cell Distribution Width 11.8 % (11.6-14.8) Platelet Count 211 K/UL (150-450) Mean Platelet Volume 7.4 FL (6.5-10.1) Neutrophils (%) (Auto) 77.1 % (45.0-75.0) H Lymphocytes (%) (Auto) 11.3 % (20.0-45.0) L Monocytes (%) (Auto) 10.6 % (1.0-10.0) H Eosinophils (%) (Auto) 0.6 % (0.0-3.0) Basophils (%) (Auto) 0.4 % (0.0-2.0) Sodium Level 132 mEQ/L (135-145) L Potassium Level 4.1 mEQ/L (3.4-4.9) Chloride Level 93 mEQ/L (98-107) L Carbon Dioxide Level 19 mEQ/L (20-30) L Anion Gap 20 (5-15) H Blood Urea Nitrogen 60 mg/dL (7-23) H Creatinine 2.8 mg/dL (0.7-1.2) H Estimat Glomerular Filtration Rate 22.7 mL/min (>60) Glucose Level 226 mg/dL (74-106) H Uric Acid 10.4 mg/dL (3.0-7.5) H Calcium Level 8.1 mg/dL (8.6-10.2) L Phosphorus Level 4.9 mg/dL (2.5-4.8) H Magnesium Level 2.3 mg/dL (1.7-2.5) Total Bilirubin 0.3 mg/dL (0.0-1.2) Aspartate Amino Transf (AST/SGOT) 15 U/L (5-40) Alanine Aminotransferase (ALT/SGPT) 14 U/L (3-41) Alkaline Phosphatase 56 U/L (40-129) Troponin I 1.16 ng/mL (<=0.30) *H Pro-B-Type Natriuretic Peptide 44705 pg/mL (0-125) H Total Protein 5.5 g/dL (6.6-8.7) L Albumin 2.1 g/dL (3.5-5.2) L Globulin 3.4 g/dL Albumin/Globulin Ratio 0.6 (1.0-2.7) L Current Medications Medications (Trade) Dose Ordered Sig/Leslee Route PRN Reason Start Time Stop Time Status Last Admin Dose Admin Acetaminophen (Tylenol) 650 mg Q4H PRN ORAL T>100.5 09/15/16 07:15 10/15/16 07:14 09/18/16 04:03 Albuterol/ Ipratropium (DuoNeb 0.5-3(2.5)mg/3ml) 3 ml Q4H PRN HHN Shortness of Breath 09/15/16 07:15 09/20/16 07:14 Aspirin (Ecotrin) 81 mg DAILY ORAL 09/16/16 09:00 10/16/16 08:59 09/18/16 10:29 Atorvastatin Calcium (Lipitor) 40 mg BEDTIME ORAL 09/15/16 21:00 10/15/16 20:59 09/17/16 21:15 Cefepime HCl 1 gm/ Dextrose 55 ml @ 110 mls/hr Q24H IVPB 09/15/16 16:00 09/22/16 15:59 09/17/16 16:23 Dextrose (Dextrose 50%) STAT PRN IV Hypoglycemia 09/15/16 20:45 10/15/16 20:44 Furosemide/ Dextrose (Lasix/D5W) 100 ml @ 10 mls/hr Q10H IV 09/17/16 14:00 10/17/16 13:59 09/18/16 08:45 Heparin Sodium/ Dextrose (Heparin) 500 ml @ 18.416 mls/ hr adjust per protocol IV 09/18/16 11:30 10/18/16 11:29 Hydralazine HCl 10 mg 10 mg Q8HR@0600,1400,2200 ORAL 09/17/16 19:30 10/17/16 19:29 09/18/16 06:40 Insulin Aspart (NovoLOG) BEFORE MEALS AND HS SUBQ 09/15/16 21:30 10/15/16 21:29 09/18/16 06:42 Levofloxacin (Levaquin) 50 ml @ 50 mls/hr Q24H IVPB 09/16/16 11:00 09/23/16 10:59 09/18/16 10:32 Lorazepam 2 mg 2 mg Q2H PRN IV For Anxiety 09/15/16 07:15 09/22/16 07:14 Metoprolol Tartrate (Lopressor) 25 mg Q12HR ORAL 09/17/16 21:00 10/17/16 20:59 09/18/16 10:29 Morphine Sulfate (Morphine Sulfate) 4 mg Q4H PRN IVP Severe Pain (Pain Scale 7-10) 09/15/16 07:15 09/22/16 07:14 09/16/16 16:29 Nitroglycerin (Nitro-Bid) 1 inch TID@0600,1200,1800 TOPIC 09/16/16 18:00 10/16/16 17:59 09/18/16 06:41 Ondansetron HCl (Zofran) 4 mg Q6H PRN IVP Nausea & Vomiting 09/15/16 07:15 10/15/16 07:14 Pantoprazole 40 mg 40 mg EVERY 12 HOURS ORAL 09/17/16 11:30 10/17/16 11:29 09/18/16 10:29 Polyethylene Glycol (Miralax) 17 gm DAILYPRN PRN ORAL Constipation 09/15/16 07:15 10/15/16 07:14 Temazepam (Restoril) 15 mg HSPRN PRN ORAL Insomnia 09/15/16 21:00 09/22/16 20:59 09/17/16 21:16 DARIUS SANCHEZ M.D. Sep 18, 2016 11:25
[2016-09-18 12:00] VITALS: BP 118/67
--- NOTE | 2016-09-18 12:04 | Pulmonology Progress Note ---
Assessment/Plan Problems: (1) Respiratory failure with hypoxia (2) NSTEMI, initial episode of care (3) Pneumonia (4) Acute kidney failure (5) Hyperkalemia (6) Diabetes mellitus Assessment/Plan on lasix drip IV abx check cultures, no sputum yet, echo noted, EF of 30 chest PT order cxr for am cardio and Id f/u d/w dr Silva, will need cardiac cath transfer to /teli d/w dr Raman from [facility] who agreed to take the patient Subjective ROS Limited/Unobtainable: No Interval Events: doing better, on Nasal cannula Allergies: Coded Allergies: No Known Allergies (Unverified , 07/30/13) Objective Last 24 Hour Vital Signs Date Time Temp Pulse Resp B/P Pulse Ox O2 Delivery O2 Flow Rate FiO2 09/18/16 10:29 85 124/72 09/18/16 08:00 97.3 91 16 132/80 97 Nasal Cannula 3.5 09/18/16 08:00 89 09/18/16 07:00 Nasal Cannula 4.0 36 09/18/16 07:00 97 Nasal Cannula 4.0 36 09/18/16 06:41 135/72 09/18/16 06:40 135/72 09/18/16 04:00 92 09/18/16 03:59 97.5 90 20 133/73 Nasal Cannula 3.0 09/18/16 00:00 97.7 86 24 114/73 95 Venturi Mask 09/18/16 00:00 85 09/17/16 21:16 99 135/82 09/17/16 20:00 97.8 99 17 135/82 97 Venturi Mask 40 09/17/16 20:00 96 09/17/16 19:47 128/74 09/17/16 19:00 97 Venturi Mask 10.0 40 09/17/16 19:00 Venturi Mask 10.0 40 09/17/16 18:19 128/74 09/17/16 16:00 97.5 98 19 128/74 97 40 09/17/16 16:00 99 09/17/16 13:08 138/76 Intake and Output 09/17/16 09/18/16 19:00 07:00 Intake Total 789.05 ml 398.388 ml Output Total 500 ml 2400 ml Balance 289.05 ml -2001.612 ml Intake Oral 120 ml 150 ml IV Total 669.05 ml 248.388 ml Output Urine Total 500 ml 2400 ml General Appearance: WD/WN HEENT: normocephalic, atraumatic Respiratory/Chest: chest wall non-tender, lungs clear Cardiovascular: normal peripheral pulses, normal rate Abdomen: normal bowel sounds, soft, non tender Genitourinary: normal external genitalia Extremities: no cyanosis Skin: no rash, no lesions Neurologic/Psychiatric: rn production II-XII grossly normal, no motor/sensory deficits Microbiology Date/Time Source Procedure Growth Status 09/16/16 02:30 Urine,Clean Catch Urine Culture - Final NO GROWTH AFTER 48 HOURS Complete Laboratory Tests 09/17/16 17:45: Activated Partial Thromboplast Time 44H, Cortisol [Pending] 09/18/16 00:50: Activated Partial Thromboplast Time > 200*H 09/18/16 04:15: White Blood Count 7.1, Red Blood Count 3.41L, Hemoglobin 10.0L, Hematocrit 29.0L , Mean Corpuscular Volume 85, Mean Corpuscular Hemoglobin 29.2, Mean Corpuscular Hemoglobin Concent 34.3, Red Cell Distribution Width 11.8, Platelet Count 211, Mean Platelet Volume 7.4, Neutrophils (%) (Auto) 77.1H, Lymphocytes ( %) (Auto) 11.3L, Monocytes (%) (Auto) 10.6H, Eosinophils (%) (Auto) 0.6, Basophils (%) (Auto) 0.4, Sodium Level 132L, Potassium Level 4.1, Chloride Level 93L, Carbon Dioxide Level 19L, Anion Gap 20H, Blood Urea Nitrogen 60H, Creatinine 2.8H, Estimat Glomerular Filtration Rate 22.7, Glucose Level 226H, Uric Acid 10.4H, Calcium Level 8.1L, Phosphorus Level 4.9H, Magnesium Level 2.3 , Total Bilirubin 0.3, Aspartate Amino Transf (AST/SGOT) 15, Alanine Aminotransferase (ALT/SGPT) 14, Alkaline Phosphatase 56, Troponin I 1.16*H, Pro- B-Type Natriuretic Peptide 30505Y, Total Protein 5.5L, Albumin 2.1L, Globulin 3.4, Albumin/Globulin Ratio 0.6L 09/18/16 10:00: Activated Partial Thromboplast Time 57H Current Medications Medications (Trade) Dose Ordered Sig/Leslee Route PRN Reason Start Time Stop Time Status Last Admin Dose Admin Acetaminophen (Tylenol) 650 mg Q4H PRN ORAL T>100.5 09/15/16 07:15 10/15/16 07:14 09/18/16 04:03 Albuterol/ Ipratropium (DuoNeb 0.5-3(2.5)mg/3ml) 3 ml Q4H PRN HHN Shortness of Breath 09/15/16 07:15 09/20/16 07:14 Aspirin (Ecotrin) 81 mg DAILY ORAL 09/16/16 09:00 10/16/16 08:59 09/18/16 10:29 Atorvastatin Calcium (Lipitor) 40 mg BEDTIME ORAL 09/15/16 21:00 10/15/16 20:59 09/17/16 21:15 Cefepime HCl 1 gm/ Dextrose 55 ml @ 110 mls/hr Q24H IVPB 09/15/16 16:00 09/22/16 15:59 09/17/16 16:23 Dextrose (Dextrose 50%) STAT PRN IV Hypoglycemia 09/15/16 20:45 10/15/16 20:44 Furosemide/ Dextrose (Lasix/D5W) 100 ml @ 10 mls/hr Q10H IV 09/17/16 14:00 10/17/16 13:59 09/18/16 08:45 Heparin Sodium/ Dextrose (Heparin) 500 ml @ 18.416 mls/ hr adjust per protocol IV 09/18/16 11:30 10/18/16 11:29 09/18/16 11:34 Hydralazine HCl 10 mg 10 mg Q8HR@0600,1400,2200 ORAL 09/17/16 19:30 10/17/16 19:29 09/18/16 06:40 Insulin Aspart (NovoLOG) BEFORE MEALS AND HS SUBQ 09/15/16 21:30 10/15/16 21:29 09/18/16 06:42 Levofloxacin (Levaquin) 50 ml @ 50 mls/hr Q24H IVPB 09/16/16 11:00 09/23/16 10:59 09/18/16 10:32 Lorazepam 2 mg 2 mg Q2H PRN IV For Anxiety 09/15/16 07:15 09/22/16 07:14 Metoprolol Tartrate (Lopressor) 25 mg Q12HR ORAL 09/17/16 21:00 10/17/16 20:59 09/18/16 10:29 Morphine Sulfate (Morphine Sulfate) 4 mg Q4H PRN IVP Severe Pain (Pain Scale 7-10) 09/15/16 07:15 09/22/16 07:14 09/16/16 16:29 Nitroglycerin (Nitro-Bid) 1 inch TID@0600,1200,1800 TOPIC 09/16/16 18:00 10/16/16 17:59 09/18/16 06:41 Ondansetron HCl (Zofran) 4 mg Q6H PRN IVP Nausea & Vomiting 09/15/16 07:15 10/15/16 07:14 Pantoprazole 40 mg 40 mg EVERY 12 HOURS ORAL 09/17/16 11:30 10/17/16 11:29 09/18/16 10:29 Polyethylene Glycol (Miralax) 17 gm DAILYPRN PRN ORAL Constipation 09/15/16 07:15 10/15/16 07:14 Temazepam (Restoril) 15 mg HSPRN PRN ORAL Insomnia 09/15/16 21:00 09/22/16 20:59 09/17/16 21:16 SIM ROJAS Sep 18, 2016 12:04
[2016-09-18] MEDS ORDERED: NS 275ml ONE (14:16)
[2016-09-18 16:00] VITALS: BP 120/70
[2016-09-18] MEDS ORDERED: ASPIRIN EC81 MG ORAL (16:55)
[2016-09-18] MEDS ORDERED: NOVOLOG100 UNITS1 SUBQ (16:55)
[2016-09-18] MEDS ORDERED: LOPRESSOR25 M1 ORAL (16:55)
[2016-09-18] MEDS: Cefepime HCl 1 GM in D5W 55 ML IVPB SCH (17:04)
--- NOTE | 2016-09-18 18:41 | Cardiology Progress Note ---
Assessment/Plan Assessment/Plan pneumonia nstemi probably demand and underlying cad chf icm dm poor present control renal insuf hs of tb abn ekg abd pain cardiorenal syndrome on anticoagulation with heparin bb ecotrin statin echo note ef 30-35% iv abx will ocnosder lwo dose hydralazine for afterload reduction s/p lasix drip now better cxr noted reviewed tele reviewed will need cath once pulm smith stable beign [facility]fered [facility] this evening Subjective Cardiovascular: Denies: chest pain, lightheadedness, palpitations Respiratory: Reports: shortness of breath Gastrointestinal/Abdominal: Denies: abdominal pain Genitourinary: Denies: burning Objective Last 24 Hour Vital Signs Date Time Temp Pulse Resp B/P Pulse Ox O2 Delivery O2 Flow Rate FiO2 09/18/16 18:25 120/70 09/18/16 16:00 97.5 85 20 120/70 95 Nasal Cannula 4.0 09/18/16 14:18 117/73 09/18/16 12:41 122/73 09/18/16 12:00 96.8 80 22 118/67 98 Nasal Cannula 3.5 09/18/16 12:00 80 09/18/16 10:29 85 124/72 09/18/16 08:00 97.3 91 16 132/80 97 Nasal Cannula 3.5 09/18/16 08:00 89 09/18/16 07:00 Nasal Cannula 4.0 36 09/18/16 07:00 97 Nasal Cannula 4.0 36 09/18/16 06:41 135/72 09/18/16 06:40 135/72 09/18/16 04:00 92 09/18/16 03:59 97.5 90 20 133/73 Nasal Cannula 3.0 09/18/16 00:00 97.7 86 24 114/73 95 Venturi Mask 09/18/16 00:00 85 09/17/16 21:16 99 135/82 09/17/16 20:00 97.8 99 17 135/82 97 Venturi Mask 40 09/17/16 20:00 96 09/17/16 19:47 128/74 09/17/16 19:00 97 Venturi Mask 10.0 40 09/17/16 19:00 Venturi Mask 10.0 40 General Appearance: no apparent distress, alert Neck: no JVD Cardiovascular: normal rate, regular rhythm Respiratory/Chest: lungs clear Abdomen: normal bowel sounds, non tender, soft Extremities: no swelling Intake and Output 09/17/16 09/18/16 19:00 07:00 Intake Total 789.05 ml 506.790 ml Output Total 500 ml 2400 ml Balance 289.05 ml -1893.210 ml Intake Oral 120 ml 150 ml IV Total 669.05 ml 356.790 ml Output Urine Total 500 ml 2400 ml Laboratory Tests Test 09/18/16 00:50 09/18/16 04:15 09/18/16 10:00 09/18/16 17:55 Activated Partial Thromboplast Time > 200 SEC (23-33) *H 57 SEC (23-33) H Pending White Blood Count 7.1 K/UL (4.8-10.8) Red Blood Count 3.41 M/UL (4.70-6.10) L Hemoglobin 10.0 G/DL (14.2-18.0) L Hematocrit 29.0 % (42.0-52.0) L Mean Corpuscular Volume 85 FL (80-99) Mean Corpuscular Hemoglobin 29.2 PG (27.0-31.0) Mean Corpuscular Hemoglobin Concent 34.3 G/DL (32.0-36.0) Red Cell Distribution Width 11.8 % (11.6-14.8) Platelet Count 211 K/UL (150-450) Mean Platelet Volume 7.4 FL (6.5-10.1) Neutrophils (%) (Auto) 77.1 % (45.0-75.0) H Lymphocytes (%) (Auto) 11.3 % (20.0-45.0) L Monocytes (%) (Auto) 10.6 % (1.0-10.0) H Eosinophils (%) (Auto) 0.6 % (0.0-3.0) Basophils (%) (Auto) 0.4 % (0.0-2.0) Sodium Level 132 mEQ/L (135-145) L Potassium Level 4.1 mEQ/L (3.4-4.9) Chloride Level 93 mEQ/L (98-107) L Carbon Dioxide Level 19 mEQ/L (20-30) L Anion Gap 20 (5-15) H Blood Urea Nitrogen 60 mg/dL (7-23) H Creatinine 2.8 mg/dL (0.7-1.2) H Estimat Glomerular Filtration Rate 22.7 mL/min (>60) Glucose Level 226 mg/dL (74-106) H Uric Acid 10.4 mg/dL (3.0-7.5) H Calcium Level 8.1 mg/dL (8.6-10.2) L Phosphorus Level 4.9 mg/dL (2.5-4.8) H Magnesium Level 2.3 mg/dL (1.7-2.5) Total Bilirubin 0.3 mg/dL (0.0-1.2) Aspartate Amino Transf (AST/SGOT) 15 U/L (5-40) Alanine Aminotransferase (ALT/SGPT) 14 U/L (3-41) Alkaline Phosphatase 56 U/L (40-129) Troponin I 1.16 ng/mL (<=0.30) *H Pro-B-Type Natriuretic Peptide 26135 pg/mL (0-125) H Total Protein 5.5 g/dL (6.6-8.7) L Albumin 2.1 g/dL (3.5-5.2) L Globulin 3.4 g/dL Albumin/Globulin Ratio 0.6 (1.0-2.7) L Microbiology Date/Time Source Procedure Growth Status 09/16/16 02:30 Urine,Clean Catch Urine Culture - Final NO GROWTH AFTER 48 HOURS DESIREE Bardales Sep 18, 2016 18:41
[2016-09-18 20:00] VITALS: BP 109/69
[2016-09-19] VITALS: BP 120/73
[2016-09-19] MEDS ORDERED: NS 275ml ONE (01:14)
[2016-09-19] MEDS ORDERED: Tubing IV Secondary IV ONE (01:14)
[2016-09-22] MEDS ORDERED: LASIX20 M1 ORAL (09:20)
[2016-09-22] MEDS ORDERED: LIPITOR40 MG ORAL (09:20)
[2016-09-22] MEDS ORDERED: LEVAQUIN500 MG ORAL (09:20)
[2016-09-22] MEDS ORDERED: HYDRALAZINE HCL10 MG ORAL (09:20)
--- NOTE | 2016-09-22 09:21 | Discharge Summary ---
Discharge Summary Hospital Course Date of Admission Sep 15, 2016 at 05:38 Date of Discharge Sep 19, 2016 at 01:15 Admitting Diagnosis NSTEMI HPI Casimiro Martinez is a 66 year old male who was admitted on Sep 15, 2016 at 05 :38 for Nstemi Hospital Course dc summary #[id number] Discharge Medications New Medications: Atorvastatin Calcium* (Lipitor*) 40 Mg Tablet 40 MG ORAL BEDTIME, #30 TAB 0 Refills Furosemide* (Lasix*) 20 Mg Tablet 20 MG ORAL DAILY, #30 TAB Hydralazine Hcl* (Hydralazine Hcl*) 10 Mg Tablet 10 MG ORAL EVERY 8 HOURS, #30 TAB Levofloxacin* (Levaquin*) 500 Mg Tablet 500 MG ORAL DAILY, #3 TAB Aspirin Ec* (Aspirin Ec*) 81 Mg Tablet.dr 81 MG ORAL DAILY for 30 Days, TAB Insulin Aspart (Novolog Flexpen) 100 Unit/1 Ml Insuln.pen 0 UNITS SUBQ BEFORE MEALS AND HS for 30 Days, EA Metoprolol Tartrate (Metoprolol Tartrate) 25 Mg Tablet 25 MG ORAL Q12HR for 30 Days, TAB Discharge Condition Upon Discharge: stable Discharge Disposition Patient was discharged to [facility] for cardiac catheterization Discharge Diagnoses: Discharge Instructions Discharge Instructions Special Instructions I have been assigned to complete a D/C Summary on this account. I was not involved in the patient management Herlinda Zamarripa NP ([place]anchte[place]) Sep 22, 2016 09:21
--- NOTE | 2016-09-22 23:38 | Discharge Summary 2 SIG ---
DATE OF ADMISSION: 09/15/2016 DATE OF DISCHARGE: 09/19/2016 REASON FOR ADMISSION: 66-year-old male with history of insulin-dependent diabetes mellitus, was not taking insulin since he ran out of the medication, presented with shortness of breath for three days, worse on the day of the presentation. He stated that he was unable to breathe and called paramedics. He was hypoxic at 90% on the room air upon presentation with service delivery management consultant, who placed him on the supplemental oxygen. The patient denied fever or chills. Respiratory distress worse with exertion and worse with lying flat. He denied any chest pain, but reported some chest tightness worse with respiratory distress. Workup in the emergency room revealed tachycardia. Heart rate was 111, tachypnea, respiratory rate was 37. On 4 liters of nasal cannula, saturation was only 90%. Lactic acid was 2.3. White blood count was 13.7 and troponin was elevated of 2.07. EKG revealed sinus rhythm. No acute ST changes. Laboratory workup also revealed acute renal insufficiency with BUN of 52 and creatinine 3.0. Potassium was 5.6. Chest x-ray revealed no acute cardiopulmonary disease. ProBNP was elevated - 27,581. The patient was placed on BiPAP and one dose of Lasix given. The patient respiratory status with some improvement, blood pressure improved as well, initially- 166/86. Total CK was 918 and CK-MB was 6.3. Initial chest x-ray revealed bilateral, left greater than right parenchymal disease likely pneumonia and blood sugar on admission was 424. ADMITTING DIAGNOSES: 1. Acute hypoxemic respiratory failure, requiring BiPAP. 2. NonST-segment elevation myocardial infarction. 3. Pulmonary edema. 4. Acute kidney failure. 5. Hyperglycemia secondary to type 1 diabetes mellitus. 6. Hyperkalemia. 7. Right inguinal hernia without obstruction or gangrene. HOSPITAL COURSE: The patient was admitted to [facility]. The patient was started on heparin drip as well as the Lasix drip. [facility] and patient care representative were both involved in patient care. Per patient care representative, the patient likely had primarily pneumonic process and secondary myocardial ischemic process. Per Cardiology, the patient needed to be treated for pneumonia. Echocardiogram was done and revealed ejection fraction of 30% to 35%. The patient was started on the IV antibiotics. Urine culture and blood culture were negative. Sputum culture, not collected because the patient unable to produce any sputum. Again, anticoagulation with heparin, started on beta-parish, aspirin, and statin as well. The patient was on Lasix drip , clinically with some improvement . Renal parameters and electrolytes were closely monitored. [facility] followed. Renal ultrasound revealed no hydronephrosis and normal kidney echogenicity. Venous duplex of bilateral lower extremities was negative. Repeated chest x-ray revealed not much changes. Supplemental oxygen and pulmonary toilet such as handheld nebulizing treatment and chest physical therapy provided. Per patient care representative, the patient needed a cardiac catheterization when pulmonary status stabilized.. The patient was started on the low dose of hydralazine for afterload reduction as per patient care representative. Blood sugar was managed with sliding scale of insulin. Hemoglobin A1c- 10.6, definitely not at goal. The patient needs to be encouraged of compliance with the medication regimen to make sure that he always have his medication and take them as directed. Further optimization of blood sugar as per primary medical doctor. The patient was able to be weaned from BiPAP to venturi mask and then to nasal cannula subsequently. Leukocytosis resolved, was present only for one day, likely related to NSTEMI. Creatinine only down to 2.8, likely element of the chronic renal insufficiency as well. Troponin still elevated, but stays in the same range. Last troponin 2.15. Hyperkalemia resolved. Potassium - 4.1. Blood sugar had improved with sliding scale of insulin. Per insurance, arrangements were made for transfer to [facility] for cardiac catheterization. Manager General cleared for transfer. The patient was transferred via [facility] ambulance. DISCHARGE DIAGNOSES: 1. Acute hypoxemic respiratory failure, requiring BiPAP, resolved. 2. NonST-segment elevation myocardial infarction. 3. Pneumonia. 4. Pulmonary edema. 5. Ischemic cardiomyopathy. 6. Congestive heart failure. 7. Diabetes mellitus, out of control. 8. Cardiorenal syndrome. 9. Hyperkalemia. 10. Noncompliance. 11. Right inguinal hernia without obstruction or gangrene. DISCHARGE MEDICATIONS: See medication reconciliation list. DISCHARGE INSTRUCTIONS: The patient was transferred to [facility] for cardiac catheterization and further intervention. Followup upon discharge with the primary medical doctor. Mirali Zarrabi, M.D. I have been assigned to dictate discharge summary on this account and I was not involved in the patient's management. Herlinda AguayoDemetria marley DR: ALLYSSA JOB#: [id number] CC: DA
== END 2016-09-19 01:15 | disposition short-term general hospital (02) | DRG 280 ==
LOC: EDUNIT# 03:41 → EDBD 03:41 → EMR 03:54 → 2W 05:38 → EDBD 05:38 → EDBEDREQ 09:40
DX: I21.4 Non-ST elevation (NSTEMI) myocardial infarction (principal); J96.01 Acute respiratory failure with hypoxia; N17.9 Acute kidney failure, unspecified; J18.9 Pneumonia, unspecified organism; I13.0 Hypertensive heart and chronic kidney disease with heart failure and stage 1 through stage 4 chronic kidney disease, or unspecified chronic kidney disease; I50.9 Heart failure, unspecified; E10.65 Type 1 diabetes mellitus with hyperglycemia; E10.22 Type 1 diabetes mellitus with diabetic chronic kidney disease; Z91.14 Patient's other noncompliance with medication regimen; E87.5 Hyperkalemia; I25.5 Ischemic cardiomyopathy; K40.90 Unilateral inguinal hernia, without obstruction or gangrene, not specified as recurrent; N18.9 Chronic kidney disease, unspecified; Z79.4 Long term (current) use of insulin; J45.909 Unspecified asthma, uncomplicated; R94.31 Abnormal electrocardiogram [ECG] [EKG]
CPT/HCPCS: 36415; 71010; 76775; 80048; 80053; 80061; 80069; 81001; 81003; 82436; 82533; 82550; 82553; 82607; 82728; 82746; 82962; 82977; 83036; 83605; 83735; 83880; 83930; 83935; 84100; 84133; 84300; 84439; 84443; 84481; 84484; 84550; 85025; 85610; 85730; 86140; 87040; 87086; 89050; 93005; 93306; 93970; 94640; 94660; 94664; 94760; J1815; J2405

== ENCOUNTER 2016-12-29 04:10 | Inpatient (IN) | payer MEDICARE, MEDICAID ==
[~2016-12-29] VITALS: Ht 157.5 cm; Wt 65.8 kg
[~2016-12-29 04:10] MED LIST changes: +ASPIRIN EC81 MG ORAL; +HYDRALAZINE HCL10 MG ORAL; +LASIX20 M1 ORAL; +LEVAQUIN500 MG ORAL; +LIPITOR40 MG ORAL; +LOPRESSOR25 M1 ORAL; +NKM; +NOVOLOG100 UNITS1 SUBQ
[2016-12-29] MEDS ORDERED: Acetaminophen 500mg (ES) tab ORAL ONE (04:30)
[2016-12-29 04:35] LABS: MEAN CORPUSCULAR HEMOGLOBIN 26.9 PG (27.0-31.0); MEAN CORPUSCULAR HGB CONC 33.4 G/DL (32.0-36.0); MEAN CORPUSCULAR VOLUME 81 FL (80-99); MEAN PLATELET VOLUME 6.4 FL (6.5-10.1); PLATELET COUNT 222 K/UL (150-450); RED BLOOD COUNT 3.49 M/UL (4.70-6.10); RED CELL DISTRIBUTION WIDTH 15.5 % (11.6-14.8); WHITE BLOOD COUNT 11.7 K/UL (4.8-10.8)
[2016-12-29 04:46] LABS: PROTHROMBIN TIME 10.6 SEC (9.30-11.50)
[2016-12-29 04:51] LABS: TROPONIN I < 0.30 ng/mL (<=0.30)
[2016-12-29 04:55] LABS: ALANINE AMINOTRANSFERASE 7 U/L (3-41); ALBUMIN/GLOBULIN RATIO 0.9 (1.0-2.7); ANION GAP 20 (5-15); ASPARTATE AMINO TRANSFERASE 13 U/L (5-40); CALCIUM 8.6 mg/dL (8.6-10.2); CARBON DIOXIDE 23 mEQ/L (20-30); CHLORIDE 91 mEQ/L (98-107); CREATININE 2.4 mg/dL (0.7-1.2); GLOMERULAR FILTRATION RATE 27.1 mL/min (>60); HEMOLYSIS 104; POTASSIUM 5.4 mEQ/L (3.4-4.9); SODIUM 134 mEQ/L (135-145); TOTAL PROTEIN 6.6 g/dL (6.6-8.7)
[2016-12-29 05:05] LABS: CKMB < 1.5 ng/mL (< 6.7)
[2016-12-29] MEDS ORDERED: Piperacillin/Tazobactam 3.375 GM in NS 110 ML IVPB ONE (05:15)
[2016-12-29 05:27] LABS: APPEARANCE,URINE CLEAR; KETONES,URINE NEGATIVE (NEGATIVE); LEUKOCYTE ESTERASE ,URINE NEGATIVE (NEGATIVE); NITRITE,URINE NEGATIVE (NEGATIVE); PH,URINE 5 (4.5-8.0); PROTEIN,URINE NEGATIVE (NEGATIVE); UROBILINOGEN,URINE NORMAL MG/DL (0.0-1.0)
[2016-12-29] MEDS ORDERED: Zosyn 3.375gm inj ONE (05:31)
[2016-12-29 06:31] VITALS: BP 116/63
--- NOTE | 2016-12-29 06:31 | Emergency Room Report ---
History of Present Illness General Chief Complaint: Altered Level of Consciousness Source: Patient, Medical Record, EMS Present Illness HPI This is a 66-year-old male with history of diabetes. He presents with chief complaint of altered mental status. Per EMS onset today. Family called 911 because he was altered. No alcohol drugs. Denies any fever or chills. Nothing made it better nothing made it worse. Similar symptom in the past. Allergies: Coded Allergies: No Known Allergies (Unverified , 07/30/13) Patient History Past Medical History: see triage record, old chart reviewed, DM, HTN Past Surgical History: other Pertinent Family History: none Social History: Denies: smoking Immunizations: other Reviewed Nursing Documentation: PMH: Agreed, PSxH: Agreed Nursing Documentation-PMH Hx Cardiac Problems: Yes - HIGH CHOLESTEROL Hx Hypertension: Yes Hx Asthma: Yes Hx COPD: Yes Hx Diabetes: Yes Hx Cancer: No Hx Gastrointestinal Problems: No Hx Neurological Problems: No Review of Systems Constitutional: Reports: weakness Eye: Denies: blurred vision, eye pain ENT: Denies: ear pain, nose congestion, throat swelling Respiratory: Denies: cough, shortness of breath Cardiovascular: Denies: chest pain, palpitations Gastrointestinal: Denies: abdominal pain, diarrhea, nausea, vomiting Musculoskeletal: Denies: back pain, joint pain Skin: Denies: rash Neurological: Denies: headache, numbness Endocrine: Denies: increased thirst, increased urine Hematologic/Lymphatic: Denies: easy bruising All Other Systems: negative except mentioned in HPI Physical Exam Vital Signs Date Time Temp Pulse Resp B/P Pulse Ox O2 Delivery O2 Flow Rate FiO2 12/29/16 04:10 99.9 98 36 111/78 86 Nasal Cannula 2.0 vitals with fever Sp02 EP Interpretation: abnormal General Appearance: mild distress, lethargic Head: normocephalic, atraumatic Eyes: bilateral eye EOMI, bilateral eye PERRL ENT: hearing grossly normal, normal pharynx Neck: full range of motion, supple, no meningismus Respiratory: chest non-tender, rhonchi Cardiovascular #1: regular rate, rhythm, no murmur Gastrointestinal: normal bowel sounds, non tender, no mass, no organomegaly, no bruit, non-distended Musculoskeletal: back normal, normal range of motion Psychiatric: mood/affect normal Skin: warm/dry Procedures Critical Care Time Critical Care Time Critical care is mandated in this patient who presented with sepsis from pneumonia. Patient require my urgent intervention to attenuate the risks of metabolic collapse which may lead to cardiovascular collapse and . Critical care time is 35 minutes excluding any reportable procedure. Critical care time included evaluation, multiple reevaluation, looking at old charts, interpreting laboratory and diagnostic data, discussing case with patient and family and consultants, and charting. Medical Decision Making Diagnostic Impression: Primary Impression: Pneumonia Qualified Codes: J18.9 - Pneumonia, unspecified organism Additional Impressions: Encephalopathy acute Chronic kidney disease (CKD) Qualified Codes: N18.9 - Chronic kidney disease, unspecified ER Course Patient presents with encephalopathy secondary to infection. His chest x-ray showed infiltrate. This looks much better than when he was here admitted in September. Vitals are stable. After IV fluid and antibiotics, he perked up and is more awake. No evidence of ACS, PE, dissection to name a few. No evidence of urinary tract infection. Lab Results Impression labs unremarkable EKG Diagnostic Results EKG Time: 06:30 EP Interpretation: yes Rate: normal Rhythm: NSR ST Segments: no acute changes Rhythm Strip Diag. Results Rhythm Strip Time: 06:30 EP Interpretation: yes Rate: 80 Rhythm: NSR Chest X-Ray Diagnostic Results Chest X-Ray Ordered: Yes # of Views/Limited/Complete: 1 View Interpretation: no effusion, no pneumothorax, other - Bilateral interstitial infiltrates Indication: Shortness of Breath Impression: Other - initial infiltrates Date Electronically Signed: Dec 29, 2016 Time Electronically Signed: 06:31 Interpreting ER Physician: Antony Stevens MD Last Vital Signs Date Time Temp Pulse Resp B/P Pulse Ox O2 Delivery O2 Flow Rate FiO2 12/29/16 04:10 99.9 98 36 111/78 86 Nasal Cannula 2.0 Status: improved Disposition: ADMITTED INPATIENT Condition: Serious Referrals: [facility],REFERRING (PCP) ANTONY STEVENS M.D. Dec 29, 2016 06:31
[2016-12-29] MEDS ORDERED: Miralax 17gm pkt ORAL PRN (06:45)
[2016-12-29] MEDS ORDERED: DuoNeb 0.5-3(2.5)mg/3ml neb HHN PRN (06:45)
[2016-12-29] MEDS ORDERED: Nitroglycerin Subl 0.4mg tab (Bottle Of 25) SL PRN (06:45)
[2016-12-29] MEDS ORDERED: Promethazine/Codeine 5ml UD ORAL PRN (06:45)
[2016-12-29] MEDS ORDERED: Mylanta II UD 30ml ORAL PRN (06:45)
[2016-12-29 07:50] VITALS: BP 98/64
[2016-12-29 08:49] VITALS: BP 95/57
[2016-12-29] MEDS: Metoprolol 25mg tab ORAL SCH ×2 (09:00→21:43)
--- NOTE | 2016-12-29 10:32 | Consultation ---
Consult Note Consult Note ID dic # [id number] DARIUS SANCHEZ M.D. Dec 29, 2016 10:32
[2016-12-29] MEDS: Aspirin EC 81mg tab ORAL SCH (10:47)
[2016-12-29] MEDS: Cefepime HCl 1 GM in D5W 55 ML IV SCH (10:49)
[2016-12-29] MEDS: Heparin 5000 units/ml inj SUBQ SCH ×2 (10:50→21:45)
--- NOTE | 2016-12-29 11:05 | Diagnostic Imaging Report ---
Indication: SOB Technique: One view of the chest Comparison: 3.17 Findings: There are bilateral pleural effusions, which appear larger than on the prior study. There is diffuse bilateral pulmonary interstitial and alveolar disease, overall slightly less severe than on prior exam but still extensive. There is focal airspace consolidation in the right medial upper lobe. Heart size is probably normal. Impression: Findings compatible with congestive heart failure, with bilateral pleural effusions and pulmonary edema, as detailed above
[2016-12-29 11:59] VITALS: BP 96/48
[2016-12-29] MEDS: NovoLOG Insulin Flexpen SUBQ SCH ×3 (12:22→21:46)
[2016-12-29] MEDS: Azithromycin 500 MG in D5W 275 ML IV SCH (13:14)
[2016-12-29] MEDS: HydrALAZINE 10mg Tab ORAL SCH ×2 (14:00→22:00)
--- NOTE | 2016-12-29 14:54 | Cardiology Report ---
APPROVED REPORT EKG Measurement Heart [id number] Sinus tachycardia Cannot rule out Anterior infarct, age undetermined Abnormal ECG
[2016-12-29 16:08] VITALS: BP 94/61
--- NOTE | 2016-12-29 16:33 | History and Physical ---
History of Present Illness General Date patient seen: Dec 29, 2016 Reason for Hospitalization: Altered Level of Consciousness Present Illness HPI 66-year-old male with history of diabetes, CHF, EF of 35% presented with chief complaint of altered mental status. Per EMS onset today. Family called 911 because he was altered. He was febrile in Er and CXR showd bilateral infiltrate and effusion. He is admitted for further evaluation. Allergies: Coded Allergies: No Known Allergies (Unverified , 07/30/13) Medication History Scheduled Aspirin Ec* (Aspirin Ec*), 81 MG ORAL DAILY Atorvastatin Calcium* (Lipitor*), 40 MG ORAL BEDTIME Furosemide* (Lasix*), 20 MG ORAL DAILY Hydralazine Hcl* (Hydralazine Hcl*), 10 MG ORAL EVERY 8 HOURS Insulin Aspart (Novolog Flexpen), 0 UNITS SUBQ BEFORE MEALS AND HS Levofloxacin* (Levaquin*), 500 MG ORAL DAILY Metoprolol Tartrate (Metoprolol Tartrate), 25 MG ORAL Q12HR No Known Medications* (NKM - No Known Medications*), 0 ., (Reported) Scheduled PRN Acetaminophen* (Tylenol Extra Strength*), 500 MG ORAL Q6H PRN for Prn Headache/ Temp > 101 Patient History Healthcare decision maker Resuscitation status Full Code Advanced Directive on File Past Medical/Surgical History Past Medical/Surgical History: (1) COPD (chronic obstructive pulmonary disease) (2) Diabetes mellitus (3) Chronic kidney disease (CKD) Review of Systems All Other Systems: negative except mentioned in HPI Physical Exam General Appearance: WD/WN Lines, tubes and drains: peripheral HEENT: normocephalic, atraumatic Neck: non-tender, normal alignment Respiratory/Chest: chest wall non-tender, lungs clear Breasts: no masses Cardiovascular/Chest: normal rate Abdomen: normal bowel sounds Genitourinary/Rectal: normal genital exam Extremities: normal range of motion Skin Exam: normal pigmentation 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 Last 24 Hour Vital Signs Date Time Temp Pulse Resp B/P Pulse Ox O2 Delivery O2 Flow Rate FiO2 12/29/16 16:08 97.3 65 15 94/61 99 Room Air 12/29/16 14:00 96/48 12/29/16 11:59 97.9 65 14 96/48 96 Room Air 12/29/16 09:00 62 95/57 12/29/16 08:49 97.9 62 14 95/57 97 Room Air 12/29/16 07:52 98.9 67 15 98/64 98 Nasal Cannula 2.0 12/29/16 07:50 98.9 67 15 98/64 98 Nasal Cannula 2.0 12/29/16 06:31 99.9 80 15 116/63 98 Room Air 12/29/16 05:33 101.8 12/29/16 04:10 99.9 98 36 111/78 86 Nasal Cannula 2.0 Intake and Output 12/28/16 12/29/16 19:00 07:00 Intake Total 0 ml Balance 0 ml Intake Oral 0 ml Laboratory Tests Test 12/29/16 04:20 12/29/16 05:12 White Blood Count 11.7 K/UL (4.8-10.8) H Red Blood Count 3.49 M/UL (4.70-6.10) L Hemoglobin 9.4 G/DL (14.2-18.0) L Hematocrit 28.1 % (42.0-52.0) L Mean Corpuscular Volume 81 FL (80-99) Mean Corpuscular Hemoglobin 26.9 PG (27.0-31.0) L Mean Corpuscular Hemoglobin Concent 33.4 G/DL (32.0-36.0) Red Cell Distribution Width 15.5 % (11.6-14.8) H Platelet Count 222 K/UL (150-450) Mean Platelet Volume 6.4 FL (6.5-10.1) L Neutrophils (%) (Auto) % (45.0-75.0) Lymphocytes (%) (Auto) % (20.0-45.0) Monocytes (%) (Auto) % (1.0-10.0) Eosinophils (%) (Auto) % (0.0-3.0) Basophils (%) (Auto) % (0.0-2.0) Prothrombin Time 10.6 SEC (9.30-11.50) Prothromb Time International Ratio 1.0 (0.9-1.1) Activated Partial Thromboplast Time 27 SEC (23-33) Sodium Level 134 mEQ/L (135-145) L Potassium Level 5.4 mEQ/L (3.4-4.9) H Chloride Level 91 mEQ/L (98-107) L Carbon Dioxide Level 23 mEQ/L (20-30) Anion Gap 20 (5-15) H Blood Urea Nitrogen 48 mg/dL (7-23) H Creatinine 2.4 mg/dL (0.7-1.2) H Estimat Glomerular Filtration Rate 27.1 mL/min (>60) Glucose Level 270 mg/dL (74-106) H Lactic Acid Level 1.50 mmol/L (0.66-2.22) Calcium Level 8.6 mg/dL (8.6-10.2) Total Bilirubin 0.5 mg/dL (0.0-1.2) Aspartate Amino Transf (AST/SGOT) 13 U/L (5-40) Alanine Aminotransferase (ALT/SGPT) 7 U/L (3-41) Alkaline Phosphatase 61 U/L (40-129) Total Creatine Kinase 39 U/L (38-174) Creatine Kinase MB < 1.5 ng/mL (< 6.7) Creatine Kinase MB Relative Index 3.8 Troponin I < 0.30 ng/mL (<=0.30) Total Protein 6.6 g/dL (6.6-8.7) Albumin 3.2 g/dL (3.5-5.2) L Globulin 3.4 g/dL Albumin/Globulin Ratio 0.9 (1.0-2.7) L Urine Color Yellow Urine Appearance Clear Urine pH 5 (4.5-8.0) Urine Specific [place] 1.015 (1.005-1.035) Urine Protein Negative (NEGATIVE) Urine Glucose (UA) Negative (NEGATIVE) Urine Ketones Negative (NEGATIVE) Urine Occult Blood Negative (NEGATIVE) Urine Nitrite Negative (NEGATIVE) Urine Bilirubin Negative (NEGATIVE) Urine Urobilinogen Normal MG/DL (0.0-1.0) Urine Leukocyte Esterase Negative (NEGATIVE) Urine Legionella Antigen Pending Height (Feet): 5 Height (Inches): 2.00 Weight (Pounds): 145 Medications Current Medications Medications (Trade) Dose Ordered Sig/Leslee Route PRN Reason Start Time Stop Time Status Last Admin Dose Admin Acetaminophen (Tylenol) 650 mg Q4H PRN ORAL Mild Pain/Temp > 100.5 12/29/16 15:45 01/28/17 15:44 Al Hydroxide/Mg Hydroxide (Mylanta II) 30 ml Q6H PRN ORAL dyspepsia 12/29/16 06:45 01/28/17 06:44 Albuterol/ Ipratropium 3 ml 3 ml EVERY 4 HOURS PRN HHN Shortness of Breath 12/29/16 06:45 01/03/17 06:44 Aspirin (Ecotrin) 81 mg DAILY ORAL 12/29/16 09:00 01/28/17 08:59 12/29/16 10:47 Atorvastatin Calcium (Lipitor) 40 mg BEDTIME ORAL 12/29/16 21:00 01/28/17 20:59 Azithromycin/ Dextrose (Zithromax/D5W) 275 ml @ 275 mls/hr Q24HRS IV 12/29/16 12:00 01/04/17 12:59 12/29/16 13:14 Cefepime HCl/ Dextrose (Maxipime/D5W) 55 ml @ 110 mls/hr Q24H IV 12/29/16 10:00 01/05/17 09:59 12/29/16 10:49 Dextrose STAT PRN IV Hypoglycemia 12/29/16 06:45 01/28/17 06:44 Heparin Sodium (Porcine) (Heparin 5000 units/ml) 5,000 units EVERY 12 HOURS SUBQ 12/29/16 09:00 01/28/17 08:59 12/29/16 10:50 Hydralazine HCl (Apresoline) 10 mg EVERY 8 HOURS ORAL 12/29/16 14:00 01/28/17 13:59 Insulin Aspart (NovoLOG) BEFORE MEALS AND HS SUBQ 12/29/16 11:30 01/28/17 11:29 12/29/16 12:22 Metoprolol Tartrate (Lopressor) 25 mg Q12HR ORAL 12/29/16 09:00 01/28/17 08:59 Nitroglycerin (Ntg) 0.4 mg Q5M PRN SL Prn Chest Pain 12/29/16 06:45 01/28/17 06:44 Ondansetron HCl (Zofran) 4 mg Q6H PRN IVP Nausea & Vomiting 12/29/16 06:45 01/28/17 06:44 Polyethylene Glycol (Miralax) 17 gm DAILYPRN PRN ORAL Constipation 12/29/16 06:45 01/28/17 06:44 Promethazine HCl/ Codeine (Phenergan with Codeine) 5 ml Q4H PRN ORAL For Cough 12/29/16 06:45 01/28/17 06:44 Temazepam (Restoril) 15 mg HSPRN PRN ORAL Insomnia 12/29/16 06:45 01/05/17 06:44 Assessment/Plan Problem List: (1) Encephalopathy acute ICD Codes: G93.40 - Encephalopathy, unspecified SNOMED: 5481831 (2) Pneumonia ICD Codes: J18.9 - Pneumonia, unspecified organism SNOMED: 618836054 Qualifiers: Qualified Codes: J18.9 - Pneumonia, unspecified organism (3) Chronic kidney disease (CKD) ICD Codes: N18.9 - Chronic kidney disease, unspecified SNOMED: 054524139 Qualifiers: Qualified Codes: N18.9 - Chronic kidney disease, unspecified (4) COPD (chronic obstructive pulmonary disease) ICD Codes: J44.9 - Chronic obstructive pulmonary disease, unspecified SNOMED: 53830171 (5) Diabetes mellitus ICD Codes: E11.9 - Type 2 diabetes mellitus without complications SNOMED: 32026132 Assessment/Plan iv antibiotics check cultures diuretics renal evaluation check electrolytes in am. SIM ROJAS Dec 29, 2016 16:33
[2016-12-29 20:00] VITALS: BP 100/58
--- NOTE | 2016-12-29 21:00 | Consultation ---
DATE OF CONSULTATION: INFECTIOUS DISEASES CONSULTATION: REFERRING PHYSICIAN: Ranulfo Winston M.D. REASON FOR CONSULTATION: The patient for fever, pneumonia, and antibiotic management. HISTORY OF PRESENT ILLNESS: The patient is a 66-year-old male with multiple medical problems well known to our service from prior recent admission. The patient came to the hospital with cough and worsening of mental status. Also, the patient has been complaining of left hip pain. Infectious Disease consultation has been requested for further evaluation of the patient's antibiotic management. PAST MEDICAL HISTORY: 1. History of recent pneumonia. 2. Diabetes. 3. COPD/asthma. 4. History of right inguinal hernia. 5. History of hematuria. MEDICATIONS: Cefepime. ALLERGIES: No known drug allergies. SOCIAL HISTORY: The patient lives at home. FAMILY HISTORY: Unavailable. REVIEW OF SYSTEMS: Unobtainable. The patient is poor historian although the patient is complaining of having a left hip pain. The patient also complaining of having abdominal pain. PHYSICAL EXAMINATION: VITAL SIGNS: Temperature is 101.8 degrees, pulse 56, respiratory rate 18, and blood pressure 95/57. HEENT: Mild pale conjunctivae. No icterus. NECK: No lymphadenopathy. CHEST: Coarse breathing sounds. HEART: S1 and S2. ABDOMEN: Soft. EXTREMITIES: The patient has tenderness over the left hip. No erythema. No swelling. NEUROLOGIC: Confused. LABORATORY AND DIAGNOSTIC DATA: WBC 11.3, hemoglobin 9.4, and platelets 222,000. UA unremarkable. BUN 48 and creatinine 2.4. ALT, AST, and alkaline phosphatase unremarkable. Chest x-ray, no significant change, showed patchy infiltrates in lungs bilaterally. Urine culture is pending. ASSESSMENT: The patient is a 66-year-old male with multiple medical problems, who was admitted with impression of pneumonia, fever, (rule out possibility of bacteremia), urinary tract infection despite of unremarkable UA. The patient has 1. Fever. 2. Rule out pneumonia. 3. Mild leukocytosis. 4. Rule out urinary tract infection. 5. Rule out septic arthritis of left hip. PLAN: 1. Recommend the patient on Zosyn. 2. We will add Zithromax for coverage of atypicals. 3. Monitor CBC. 4. Monitor BMP. 5. Monitor cultures (blood, urine, and sputum). 6. CT of pelvis. Evaluation of left hip pain. 7. Based on the patient's clinical course and labs, we will do further recommendation. Thank you, Dr. Winston, for allowing me to participate in the care of this patient. I will follow the patient with you during this hospitalization. Lon Amin M.D. DR: Helder JOB#: [id number] CC:
[2016-12-29] MEDS: Furosemide 40mg tab ORAL SCH (21:43)
[2016-12-29] MEDS ORDERED: Sodium Polystyrene Sulfonate 15gm Powder ORAL ONE (22:30)
[2016-12-29] MEDS: Norco 5mg/325mg tab ORAL PRN (22:58)
[2016-12-30] VITALS (7 sets, daily range): BP systolic 82–123; BP diastolic 50–63
--- NOTE | 2016-12-30 00:15 | Consultation ---
DATE OF CONSULTATION: 12/29/2016 UROLOGY CONSULTATION CONSULTING PHYSICIAN: Otf Francis M.D. ATTENDING PHYSICIAN: Ranulfo Winsotn M.D. REFERRING PHYSICIAN: Ranulfo Winston M.D. CHIEF COMPLAINT/HISTORY OF PRESENT ILLNESS: I was asked by Dr. Winston to evaluate this very pleasant, 66-year-old gentleman regarding history of urinary retention. Briefly, the patient has a history of diabetes, CHF and COPD, who presented to the hospital with altered mental status. Workup revealed a febrile infection and chest x-ray revealed bilateral infiltrate worrisome for pneumonia. He was admitted for further evaluation for the same. A bladder scan revealed urinary retention with 900 mL in the bladder. As such, I was asked to evaluate the patient. The patient reports a baseline history of some difficulty urinating, but he does not see a urologist on a regular basis. He does not take any medicine for prostate or has any urologic issues that he is aware. PAST MEDICAL HISTORY: 1. Diabetes mellitus. 2. Chronic obstructive pulmonary disease. 3. Congestive heart failure. 4. Chronic kidney disease. PAST SURGICAL HISTORY: Bilateral lower extremity surgery for peripheral vascular disease, not otherwise specified. Otherwise, unremarkable. MEDICATIONS: Please see chart for current medications administration details. ALLERGIES: No known drug allergies. SOCIAL HISTORY: Unremarkable for tobacco, alcohol, or drug use. FAMILY HISTORY: Noncontributory. REVIEW OF SYSTEMS: A 12-system review of systems was essentially unremarkable outside of what was described above. PHYSICAL EXAMINATION: GENERAL: The patient is a well developed, gentleman, awake, alert, and pleasant, no obvious distress. HEENT: NCAT. EOMI. NECK: Supple. Full range of motion. Oropharynx is clear. CHEST: Within normal limits. ABDOMEN: Soft, flat, nontender and nondistended. EXTREMITIES: Normal perfused. No cyanosis, clubbing, or edema. BACK: No CVA tenderness to percussion. GENITOURINARY: Reveals an uncircumcised male phallus with a Lee catheter in place with clear yellow urine output. There are bilateral descended testes and cord structures. There is a right inguinal hernia notable in the scrotum, which is reducible. LABORATORY DATA: White blood cell count 11.7, hematocrit 28.1, and platelets 222,000. PT 10.6, INR 1.0, and PTT 27. Sodium 134, potassium 5.4, chloride 91, bicarbonate 23, BUN 48, creatinine 2.4, and glucose 270. Calcium is 8.6. LFTs are within normal limits. Alkaline phosphatase is 61. Troponin is negative. Urinalysis, specific gravity 1.015, and pH 5.0. Dip test negative for all findings. DIAGNOSTIC IMAGING: Chest x-ray compatible with congestive heart failure with bilateral pleural effusions and pulmonary edema, as detailed above. ASSESSMENT AND PLAN: In summary, the patient is a 66-year-old gentleman with baseline history of urinary problems, who presented to the hospital with altered mental status, evidence of congestive heart failure exacerbation and possible pneumonia. He was admitted for management of the same. Further evaluation revealed urinary retention and a Lee catheter was placed. Physical exam revealed a Lee catheter in place with clear yellow urine output. There are bilateral descended testes and cord structures with a right inguinal hernia also noted. Laboratory data done for an elevated white blood cell count and abnormal urinalysis. There is no relevant diagnostic imaging. I am going to start the patient on Flomax and finasteride in effort to improve his voiding. In one to two days time, we can remove his catheter for trial of void. He is to continue antibiotics and supportive care as deemed appropriate by Dr. Winston. Once he is discharged he will need follow up with a plan contract urologist to further assess the source of his voiding symptoms. Thank you again for allowing me to participate in the care of this nice gentleman. Please do not hesitate to contact me any questions that you further have regarding his care. I will be happy to see him with you as needed. Otf Francis M.D. DR: DAREN JOB#: [id number] CC:
[2016-12-30] MEDS: HydrALAZINE 10mg Tab ORAL SCH ×3 (06:00→22:00)
[2016-12-30] MEDS: NovoLOG Insulin Flexpen SUBQ SCH ×4 (06:04→22:18)
[2016-12-30 07:04] LABS: BASOPHILS % (AUTO) 0.3 % (0.0-2.0); EOSINOPHILS % (AUTO) 0.2 % (0.0-3.0); LYMPHOCYTES % (AUTO) 10.4 % (20.0-45.0); MEAN CORPUSCULAR HEMOGLOBIN 27.3 PG (27.0-31.0); MEAN CORPUSCULAR HGB CONC 33.9 G/DL (32.0-36.0); MEAN CORPUSCULAR VOLUME 80 FL (80-99); MEAN PLATELET VOLUME 6.6 FL (6.5-10.1); MONOCYTES % (AUTO) 8.3 % (1.0-10.0); NEUTROPHILS % (AUTO) 80.8 % (45.0-75.0); PLATELET COUNT 206 K/UL (150-450); RED BLOOD COUNT 3.23 M/UL (4.70-6.10); RED CELL DISTRIBUTION WIDTH 15.5 % (11.6-14.8); WHITE BLOOD COUNT 9.8 K/UL (4.8-10.8)
[2016-12-30 07:32] LABS: ALBUMIN/GLOBULIN RATIO 0.9 (1.0-2.7); CREATININE 3.2 mg/dL (0.7-1.2); GLOMERULAR FILTRATION RATE 19.5 mL/min (>60); POTASSIUM 5.6 mEQ/L (3.4-4.9); TOTAL PROTEIN 6.3 g/dL (6.6-8.7)
--- NOTE | 2016-12-30 07:49 | Diagnostic Imaging Report ---
Indication: Left hip Technique: Noncontrast spiral acquisitions obtained through the pelvis. Multiplanar reconstructions generated. Total dose length product 354 mGycm. CTDIvol(s) 1010 mGy. Dose reduction achieved using automated exposure control Comparison: None Findings: No acute fractures. No dislocations. The joint spaces are preserved. There is generalized mild edema of the subcutaneous fat, but no evidence of soft tissue hematoma or other soft tissue abnormality. There is a large indirect right inguinal hernia, which contains the cecum, appendix and terminal ileum. This is incompletely included. Note definite findings to suggest strangulation or obstruction, although there is slight edema of the surrounding scrotal fat anteriorly. Is also a small fat-containing indirect left inguinal hernia. The bladder is distended. There is a tiny fat-containing umbilical hernia. There are extensive vascular calcifications. Impression: No acute bony trauma Mild edema of the subcutaneous fat diffusely Large indirect right inguinal hernia, incompletely visualized, cecum, appendix, and terminal ileum. No definite evidence of obstruction or strangulation. Small indirect fat-containing left inguinal hernia Distended bladder Small fat-containing umbilical hernia The CT scanner at [facility] is accredited by the [employer] and the scans are performed using protocols designed to limit radiation exposure to as low as reasonably achievable to attain images of sufficient resolution adequate for diagnostic evaluation.
--- NOTE | 2016-12-30 08:21 | Wound Care Consultation ---
Wound Assessment Wound Assessment : Wound Number: #1 Wound Present on Admission: Yes New Wound: No Status Change of Wound: No Wound Location Body Site Modif: left Wound Location Body Site: heel Wound Type: pressure ulcer Blanca Test: Does not Blanca Pressure Ulcer Stage: I Wound Length: 3.0 Wound Width: 3.0 Percent of Wound [place]/Red: 100 Wound Drainage Amount: None Wound Drainage Odor: None/Absent Tissue Surrounding Wound: Intact - patient states feels tenderness to heel site. Wound General Appearance: Reddened, Open to air Wound Comment #1 left heel pressure ulcer stage I. recommendation. - Local wound care as ordered. - Turn and reposition. - Keep clean and dry. -Optimize nutrition. -Offload affected area. -Heel protectors. -Avoid shear and friction. -Assess and notify for any changes of condition to skin. -Pressure reducing mattress. OSCAR MONTANO Dec 30, 2016 08:21
[2016-12-30] MEDS: Aspirin EC 81mg tab ORAL SCH (09:10)
[2016-12-30] MEDS: Metoprolol 25mg tab ORAL SCH ×2 (09:11→21:00)
[2016-12-30] MEDS: Furosemide 40mg tab ORAL SCH (09:11)
[2016-12-30] MEDS: Heparin 5000 units/ml inj SUBQ SCH ×2 (09:13→22:16)
--- NOTE | 2016-12-30 10:47 | Diagnostic Imaging Report ---
Indications: PAIN, nontrauma Technique: Two views of the right humerus Comparison: None Findings: No acute fractures. No dislocations. Bones are osteoporotic. Impression: Osteoporosis. No acute bony trauma
--- NOTE | 2016-12-30 10:53 | Diagnostic Imaging Report ---
Indication: PAIN Technique: 3 views of the right shoulder Comparison: none Findings: Unfused ossicle is seen at the tip of the clavicle. This appears well-corticated. No acute fractures. No dislocations. Joint spaces are preserved. The bones are osteoporotic. Is incidental finding of pleural thickening Impression:No acute process Pleural thickening is incidentally noted
--- NOTE | 2016-12-30 10:59 | Infectious Diseases Prog Note ---
Assessment/Plan Assessment/Plan A: The patient is a 66-year-old male with r fever, pneumonia, and antibiotic management. Fever , SP Pneumonia History of recent pneumonia. Mild leukocytosis, SP Rule out urinary tract infection LIDIA , Cr increasing Left hip pain CT : unremarkable Diabetes. COPD/asthma. History of right inguinal hernia. History of hematuria PLAN: cont on Zosyn and Zithromax d# 2 Monitor CBC. Monitor BMP. Monitor cultures (blood, urine, and sputum) Subjective Allergies: Coded Allergies: No Known Allergies (Unverified , 07/30/13) Subjective no new complain Objective Vital Signs Last 24 Hour Vital Signs Date Time Temp Pulse Resp B/P Pulse Ox O2 Delivery O2 Flow Rate FiO2 12/30/16 09:11 77 122/59 12/30/16 08:00 97.5 77 20 120/63 96 Nasal Cannula 4.0 12/30/16 06:00 120/67 12/30/16 04:00 96.4 68 18 98/56 97 Room Air 12/30/16 00:00 96.8 63 18 93/54 98 Room Air 12/29/16 22:00 107/57 12/29/16 21:43 71 121/65 12/29/16 20:00 96.8 68 17 100/58 97 Room Air 12/29/16 16:08 97.3 65 15 94/61 99 Room Air 12/29/16 14:00 96/48 12/29/16 11:59 97.9 65 14 96/48 96 Room Air Height (Feet): 5 Height (Inches): 2.00 Weight (Pounds): 145 HEENT: mucous membranes moist Respiratory/Chest: no respiratory distress Cardiovascular: normal rate Abdomen: no organomegaly Microbiology Date/Time Source Procedure Growth Status 12/29/16 04:20 Blood Blood Culture - Preliminary NO GROWTH AFTER 24 HOURS Resulted 12/29/16 04:15 Blood Blood Culture - Preliminary NO GROWTH AFTER 24 HOURS Resulted 12/29/16 15:00 Sputum Gram Stain - Final Resulted 12/29/16 15:00 Sputum Sputum Culture - Preliminary Resulted Laboratory Tests Test 12/30/16 05:35 White Blood Count 9.8 K/UL (4.8-10.8) Red Blood Count 3.23 M/UL (4.70-6.10) L Hemoglobin 8.8 G/DL (14.2-18.0) L Hematocrit 26.0 % (42.0-52.0) L Mean Corpuscular Volume 80 FL (80-99) Mean Corpuscular Hemoglobin 27.3 PG (27.0-31.0) Mean Corpuscular Hemoglobin Concent 33.9 G/DL (32.0-36.0) Red Cell Distribution Width 15.5 % (11.6-14.8) H Platelet Count 206 K/UL (150-450) Mean Platelet Volume 6.6 FL (6.5-10.1) Neutrophils (%) (Auto) 80.8 % (45.0-75.0) H Lymphocytes (%) (Auto) 10.4 % (20.0-45.0) L Monocytes (%) (Auto) 8.3 % (1.0-10.0) Eosinophils (%) (Auto) 0.2 % (0.0-3.0) Basophils (%) (Auto) 0.3 % (0.0-2.0) Sodium Level 135 mEQ/L (135-145) Potassium Level 5.6 mEQ/L (3.4-4.9) H Chloride Level 93 mEQ/L (98-107) L Carbon Dioxide Level 20 mEQ/L (20-30) Anion Gap 22 (5-15) H Blood Urea Nitrogen 58 mg/dL (7-23) H Creatinine 3.2 mg/dL (0.7-1.2) H Estimat Glomerular Filtration Rate 19.5 mL/min (>60) Glucose Level 91 mg/dL (74-106) # Calcium Level 9.0 mg/dL (8.6-10.2) Phosphorus Level 6.0 mg/dL (2.5-4.8) H Total Bilirubin 0.5 mg/dL (0.0-1.2) Aspartate Amino Transf (AST/SGOT) 31 U/L (5-40) Alanine Aminotransferase (ALT/SGPT) 33 U/L (3-41) Alkaline Phosphatase 111 U/L (40-129) Total Protein 6.3 g/dL (6.6-8.7) L Albumin 3.0 g/dL (3.5-5.2) L Globulin 3.3 g/dL Albumin/Globulin Ratio 0.9 (1.0-2.7) L Current Medications Medications (Trade) Dose Ordered Sig/Leslee Route PRN Reason Start Time Stop Time Status Last Admin Dose Admin Acetaminophen (Tylenol) 650 mg Q4H PRN ORAL Mild Pain/Temp > 100.5 12/29/16 15:45 01/28/17 15:44 12/29/16 17:37 Acetaminophen/ Hydrocodone Bitart ([place] 5/325) 1 tab Q4H PRN ORAL Moderate Pain (Pain Scale 4-6) 12/29/16 22:00 01/05/17 21:59 12/29/16 22:58 Al Hydroxide/Mg Hydroxide (Mylanta II) 30 ml Q6H PRN ORAL dyspepsia 12/29/16 06:45 01/28/17 06:44 Albuterol/ Ipratropium 3 ml 3 ml EVERY 4 HOURS PRN HHN Shortness of Breath 12/29/16 06:45 01/03/17 06:44 Aspirin (Ecotrin) 81 mg DAILY ORAL 12/29/16 09:00 01/28/17 08:59 12/30/16 09:10 Atorvastatin Calcium (Lipitor) 40 mg BEDTIME ORAL 12/29/16 21:00 01/28/17 20:59 12/29/16 21:44 Azithromycin/ Dextrose (Zithromax/D5W) 275 ml @ 275 mls/hr Q24HRS IV 12/29/16 12:00 01/04/17 12:59 12/29/16 13:14 Cefepime HCl/ Dextrose (Maxipime/D5W) 55 ml @ 110 mls/hr Q24H IV 12/29/16 10:00 01/05/17 09:59 12/29/16 10:49 Dextrose STAT PRN IV Hypoglycemia 12/29/16 06:45 01/28/17 06:44 Finasteride (Proscar) 5 mg QHS ORAL 12/30/16 21:00 01/29/17 20:59 Furosemide (Lasix) 40 mg EVERY 12 HOURS ORAL 12/29/16 21:00 01/28/17 20:59 12/30/16 09:11 Heparin Sodium (Porcine) (Heparin 5000 units/ml) 5,000 units EVERY 12 HOURS SUBQ 12/29/16 09:00 01/28/17 08:59 12/30/16 09:13 Hydralazine HCl (Apresoline) 10 mg EVERY 8 HOURS ORAL 12/29/16 14:00 01/28/17 13:59 12/30/16 06:00 Insulin Aspart (NovoLOG) BEFORE MEALS AND HS SUBQ 12/29/16 11:30 01/28/17 11:29 12/29/16 21:46 Metoprolol Tartrate (Lopressor) 25 mg Q12HR ORAL 12/29/16 09:00 01/28/17 08:59 12/30/16 09:11 Nitroglycerin (Ntg) 0.4 mg Q5M PRN SL Prn Chest Pain 12/29/16 06:45 01/28/17 06:44 Ondansetron HCl (Zofran) 4 mg Q6H PRN IVP Nausea & Vomiting 12/29/16 06:45 01/28/17 06:44 12/29/16 17:48 Polyethylene Glycol (Miralax) 17 gm DAILYPRN PRN ORAL Constipation 12/29/16 06:45 01/28/17 06:44 Promethazine HCl/ Codeine (Phenergan with Codeine) 5 ml Q4H PRN ORAL For Cough 12/29/16 06:45 01/28/17 06:44 Tamsulosin HCl (Flomax) 0.4 mg BEDTIME ORAL 12/30/16 21:00 01/29/17 20:59 Temazepam (Restoril) 15 mg HSPRN PRN ORAL Insomnia 12/29/16 06:45 01/05/17 06:44 DARIUS SANCHEZ M.D. Dec 30, 2016 10:59
[2016-12-30] MEDS: Cefepime HCl 1 GM in D5W 55 ML IV SCH (12:02)
[2016-12-30] MEDS: Azithromycin 500 MG in D5W 275 ML IV SCH (13:57)
--- NOTE | 2016-12-30 14:50 | Consultation ---
Consult Note Consult Note asked to eval for renal failure- This is a 66-year-old male with history of diabetes. He presents with chief complaint of altered mental status. Per EMS onset today. Family called 911 because he was altered. No alcohol drugs. Denies any fever or chills. Nothing made it better nothing made it worse. Similar symptom in the past. Past Medical History: see triage record, old chart reviewed, DM, HTN Hx Cardiac Problems: Yes - HIGH CHOLESTEROL Hx Hypertension: Yes Hx Asthma: Yes Hx COPD: Yes Hx Diabetes: Yes examined- data reviewed Assessment/Plan status: acute renal failure- with high K possible underlying CKD Urinary retention- CHF Anemia DM Plan: DC Lasix 2 D Echo Anemia [place] Adjust meds avoid nephrotoxics Monitor renal parameters RASHMI VILLALOBOS Dec 30, 2016 14:50
--- NOTE | 2016-12-30 16:32 | Cardiology Report ---
APPROVED REPORT EXAM: Two-dimensional and M-mode echocardiogram with Doppler and color Doppler. INDICATION Congestive Heart Failure M-Mode DIMENSIONS Aortic Root3.0 (2.0-3.7cm) Aortic Cusp Exc.1.6 (1.5-2.0cm) Technically difficult study due to poor acoustic windows. M-mode measurements not obtainable due to cardiac structure. Normal left ventricular chamber size. Global left ventricular hypokinesis. Apical, distal septal and lateral akinesis. Left ventricular ejection fraction estimated to be 40-45%. Normal left ventricular hypertrophy. Large posterior pleural effusion. All other cardiac chamber sizes are within normal limits. Focal aortic valve sclerosis with adequate cusp excursion Thickened mitral valve leaflets with normal excursion. Mitral annulus and aortic root calcification. Pulmonic valve not well visualized. Normal tricuspid valve structure. IVC is normal in size with minimal physiological collapse. RA pressure of 10mmHg. Small area of echodensity noted in the apical region, cannot rule out LV thrombus. Consider ANDREAS, if clinically indicated. A color flow and spectral Doppler study was performed and revealed: No aortic regurgitation. Moderate mitral regurgitation ( 2 Jets). Left ventricular diastolic dysfunction grade 1. Mild tricuspid regurgitation. Tricuspid systolic velocities suggests peak right ventricular systolic pressure of 48 mmHg Consistent with moderate pulmonary hypertension.
--- NOTE | 2016-12-30 16:51 | Pulmonology Progress Note ---
Assessment/Plan Problems: (1) Pleural effusion (2) Pneumonia (3) Encephalopathy acute (4) Chronic kidney disease (CKD) (5) COPD (chronic obstructive pulmonary disease) (6) Diabetes mellitus (7) Ventricular mural thrombus (8) Cardiomyopathy (9) BPH (benign prostatic hyperplasia) Assessment/Plan US guided thoracentesis IV antibiotics cardiology to see for mural thormbosis Urology evaluation appreciated. Subjective ROS Limited/Unobtainable: No Interval Events: feels very week Allergies: Coded Allergies: No Known Allergies (Unverified , 07/30/13) Objective Last 24 Hour Vital Signs Date Time Temp Pulse Resp B/P Pulse Ox O2 Delivery O2 Flow Rate FiO2 12/30/16 16:00 97.3 74 20 99/53 90 Nasal Cannula 4.0 12/30/16 15:22 75 112/62 12/30/16 14:00 112/62 12/30/16 12:00 97.5 79 20 123/62 92 Nasal Cannula 4.0 12/30/16 09:11 77 122/59 12/30/16 08:00 97.5 77 20 120/63 96 Nasal Cannula 4.0 12/30/16 06:00 120/67 12/30/16 04:00 96.4 68 18 98/56 97 Room Air 12/30/16 00:00 96.8 63 18 93/54 98 Room Air 12/29/16 22:00 107/57 12/29/16 21:43 71 121/65 12/29/16 20:00 96.8 68 17 100/58 97 Room Air Intake and Output 12/29/16 12/30/16 19:00 07:00 Intake Total 3480 ml Output Total 300 ml 1400 ml Balance 3180 ml -1400 ml Intake Oral 900 ml IV Total 2580 ml Output Urine Total 300 ml 1400 ml General Appearance: WD/WN HEENT: normocephalic, atraumatic, anicteric Respiratory/Chest: chest wall non-tender, decreased breath sounds, crackles/ rales Cardiovascular: normal peripheral pulses, normal rate Abdomen: normal bowel sounds, soft, non tender Genitourinary: normal external genitalia Extremities: no cyanosis, no clubbing 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, no motor/sensory deficits Lymphatic: no neck adenopathy Microbiology Date/Time Source Procedure Growth Status 12/29/16 04:20 Blood Blood Culture - Preliminary NO GROWTH AFTER 24 HOURS Resulted 12/29/16 04:15 Blood Blood Culture - Preliminary NO GROWTH AFTER 24 HOURS Resulted 12/29/16 15:00 Sputum Gram Stain - Final Resulted 12/29/16 15:00 Sputum Sputum Culture - Preliminary Resulted 12/29/16 05:12 Urine,Clean Catch Urine Culture - Preliminary NO GROWTH Resulted Laboratory Tests 12/30/16 05:35: White Blood Count 9.8, Red Blood Count 3.23L, Hemoglobin 8.8L, Hematocrit 26.0L , Mean Corpuscular Volume 80, Mean Corpuscular Hemoglobin 27.3, Mean Corpuscular Hemoglobin Concent 33.9, Red Cell Distribution Width 15.5H, Platelet Count 206, Mean Platelet Volume 6.6, Neutrophils (%) (Auto) 80.8H, Lymphocytes (%) (Auto) 10.4L, Monocytes (%) (Auto) 8.3, Eosinophils (%) (Auto) 0.2, Basophils (%) (Auto) 0.3, Sodium Level 135, Potassium Level 5.6H, Chloride Level 93L, Carbon Dioxide Level 20, Anion Gap 22H, Blood Urea Nitrogen 58H, Creatinine 3.2H, Estimat Glomerular Filtration Rate 19.5, Glucose Level 91#, Calcium Level 9.0, Phosphorus Level 6.0H, Total Bilirubin 0.5, Aspartate Amino Transf (AST/SGOT) 31, Alanine Aminotransferase (ALT/SGPT) 33, Alkaline Phosphatase 111, Total Protein 6.3L, Albumin 3.0L, Globulin 3.3, Albumin/ Globulin Ratio 0.9L Current Medications Medications (Trade) Dose Ordered Sig/Leslee Route PRN Reason Start Time Stop Time Status Last Admin Dose Admin Acetaminophen (Tylenol) 650 mg Q4H PRN ORAL Mild Pain/Temp > 100.5 12/29/16 15:45 01/28/17 15:44 12/30/16 14:27 Acetaminophen/ Hydrocodone Bitart ([place] 5/325) 1 tab Q4H PRN ORAL Moderate Pain (Pain Scale 4-6) 12/29/16 22:00 01/05/17 21:59 12/29/16 22:58 Albuterol/ Ipratropium 3 ml 3 ml EVERY 4 HOURS PRN HHN Shortness of Breath 12/29/16 06:45 01/03/17 06:44 Aspirin (Ecotrin) 81 mg DAILY ORAL 12/29/16 09:00 01/28/17 08:59 12/30/16 09:10 Atorvastatin Calcium (Lipitor) 40 mg BEDTIME ORAL 12/29/16 21:00 01/28/17 20:59 12/29/16 21:44 Azithromycin/ Dextrose (Zithromax/D5W) 275 ml @ 275 mls/hr Q24HRS IV 12/29/16 12:00 01/04/17 12:59 12/30/16 13:57 Cefepime HCl/ Dextrose (Maxipime/D5W) 55 ml @ 110 mls/hr Q24H IV 12/29/16 10:00 01/05/17 09:59 12/30/16 12:02 Dextrose STAT PRN IV Hypoglycemia 12/29/16 06:45 01/28/17 06:44 Finasteride (Proscar) 5 mg QHS ORAL 12/30/16 21:00 01/29/17 20:59 Heparin Sodium (Porcine) (Heparin 5000 units/ml) 5,000 units EVERY 12 HOURS SUBQ 12/29/16 09:00 01/28/17 08:59 12/30/16 09:13 Hydralazine HCl (Apresoline) 10 mg EVERY 8 HOURS ORAL 12/29/16 14:00 01/28/17 13:59 12/30/16 06:00 Insulin Aspart (NovoLOG) BEFORE MEALS AND HS SUBQ 12/29/16 11:30 01/28/17 11:29 12/29/16 21:46 Metoprolol Tartrate (Lopressor) 25 mg Q12HR ORAL 12/29/16 09:00 01/28/17 08:59 12/30/16 09:11 Nitroglycerin (Ntg) 0.4 mg Q5M PRN SL Prn Chest Pain 12/29/16 06:45 01/28/17 06:44 Ondansetron HCl (Zofran) 4 mg Q6H PRN IVP Nausea & Vomiting 12/29/16 06:45 01/28/17 06:44 12/29/16 17:48 Polyethylene Glycol (Miralax) 17 gm DAILYPRN PRN ORAL Constipation 12/29/16 06:45 01/28/17 06:44 Promethazine HCl/ Codeine (Phenergan with Codeine) 5 ml Q4H PRN ORAL For Cough 12/29/16 06:45 01/28/17 06:44 Tamsulosin HCl (Flomax) 0.4 mg BEDTIME ORAL 12/30/16 21:00 01/29/17 20:59 Temazepam (Restoril) 15 mg HSPRN PRN ORAL Insomnia 12/29/16 06:45 01/05/17 06:44 SIM ROJAS Dec 30, 2016 16:51
[2016-12-30 18:36] LABS: INR 1.1 (0.9-1.1); PROTHROMBIN TIME 11.4 SEC (9.30-11.50)
--- NOTE | 2016-12-30 21:39 | Cardiology Progress Note ---
Assessment/Plan Assessment/Plan The patient is seen and examined, full consult will be dictated. Objective Last 24 Hour Vital Signs Date Time Temp Pulse Resp B/P Pulse Ox O2 Delivery O2 Flow Rate FiO2 12/30/16 20:00 97.0 65 17 82/50 91 Nasal Cannula 12/30/16 16:00 97.3 74 20 99/53 90 Nasal Cannula 4.0 12/30/16 15:22 75 112/62 12/30/16 14:00 112/62 12/30/16 12:00 97.5 79 20 123/62 92 Nasal Cannula 4.0 12/30/16 09:11 77 122/59 12/30/16 08:00 97.5 77 20 120/63 96 Nasal Cannula 4.0 12/30/16 06:00 120/67 12/30/16 04:00 96.4 68 18 98/56 97 Room Air 12/30/16 00:00 96.8 63 18 93/54 98 Room Air 12/29/16 22:00 107/57 12/29/16 21:43 71 121/65 Intake and Output 12/29/16 12/30/16 19:00 07:00 Intake Total 3480 ml Output Total 300 ml 1400 ml Balance 3180 ml -1400 ml Intake Oral 900 ml IV Total 2580 ml Output Urine Total 300 ml 1400 ml Laboratory Tests Test 12/30/16 05:35 12/30/16 17:40 White Blood Count 9.8 K/UL (4.8-10.8) Red Blood Count 3.23 M/UL (4.70-6.10) L Hemoglobin 8.8 G/DL (14.2-18.0) L Hematocrit 26.0 % (42.0-52.0) L Mean Corpuscular Volume 80 FL (80-99) Mean Corpuscular Hemoglobin 27.3 PG (27.0-31.0) Mean Corpuscular Hemoglobin Concent 33.9 G/DL (32.0-36.0) Red Cell Distribution Width 15.5 % (11.6-14.8) H Platelet Count 206 K/UL (150-450) Mean Platelet Volume 6.6 FL (6.5-10.1) Neutrophils (%) (Auto) 80.8 % (45.0-75.0) H Lymphocytes (%) (Auto) 10.4 % (20.0-45.0) L Monocytes (%) (Auto) 8.3 % (1.0-10.0) Eosinophils (%) (Auto) 0.2 % (0.0-3.0) Basophils (%) (Auto) 0.3 % (0.0-2.0) Sodium Level 135 mEQ/L (135-145) Potassium Level 5.6 mEQ/L (3.4-4.9) H Chloride Level 93 mEQ/L (98-107) L Carbon Dioxide Level 20 mEQ/L (20-30) Anion Gap 22 (5-15) H Blood Urea Nitrogen 58 mg/dL (7-23) H Creatinine 3.2 mg/dL (0.7-1.2) H Estimat Glomerular Filtration Rate 19.5 mL/min (>60) Glucose Level 91 mg/dL (74-106) # Calcium Level 9.0 mg/dL (8.6-10.2) Phosphorus Level 6.0 mg/dL (2.5-4.8) H Total Bilirubin 0.5 mg/dL (0.0-1.2) Aspartate Amino Transf (AST/SGOT) 31 U/L (5-40) Alanine Aminotransferase (ALT/SGPT) 33 U/L (3-41) Alkaline Phosphatase 111 U/L (40-129) Total Protein 6.3 g/dL (6.6-8.7) L Albumin 3.0 g/dL (3.5-5.2) L Globulin 3.3 g/dL Albumin/Globulin Ratio 0.9 (1.0-2.7) L Prothrombin Time 11.4 SEC (9.30-11.50) Prothromb Time International Ratio 1.1 (0.9-1.1) Activated Partial Thromboplast Time 41 SEC (23-33) H Microbiology Date/Time Source Procedure Growth Status 12/29/16 04:20 Blood Blood Culture - Preliminary NO GROWTH AFTER 24 HOURS Resulted 12/29/16 04:15 Blood Blood Culture - Preliminary NO GROWTH AFTER 24 HOURS Resulted 12/29/16 15:00 Sputum Gram Stain - Final Resulted 12/29/16 15:00 Sputum Sputum Culture - Preliminary Resulted 12/29/16 05:12 Urine,Clean Catch Urine Culture - Preliminary NO GROWTH Resulted SALINA HOFFMAN Dec 30, 2016 21:39
[2016-12-30] MEDS: Tamsulosin 0.4mg cap ORAL SCH (22:15)
[2016-12-30 23:57] LABS: APPEARANCE,URINE CLEAR; KETONES,URINE NEGATIVE (NEGATIVE); LEUKOCYTE ESTERASE ,URINE NEGATIVE (NEGATIVE); NITRITE,URINE NEGATIVE (NEGATIVE); PH,URINE 5 (4.5-8.0); PROTEIN,URINE 3+ (NEGATIVE); UROBILINOGEN,URINE NORMAL MG/DL (0.0-1.0)
[2016-12-31] VITALS: BP 94/59
[2016-12-31 00:05] LABS: BACTERIA,URINE FEW /HPF; FINE GRANULAR CASTS,URINE 0-2 /LPF; HYALINE CASTS, URINE 0-2 /LPF; RBC,URINE 20-30 /HPF (0 - 0); WBC,URINE 0-2 /HPF (0 - 0)
[2016-12-31 04:00] VITALS: BP 89/54
[2016-12-31] MEDS: HydrALAZINE 10mg Tab ORAL SCH ×3 (06:00→17:53)
[2016-12-31] MEDS: NovoLOG Insulin Flexpen SUBQ SCH ×4 (06:21→22:07)
[2016-12-31 07:31] LABS: HEMOGLOBIN A1C 9.8 % (< 6.0)
[2016-12-31 07:35] LABS: BASOPHILS % (AUTO) 0.3 % (0.0-2.0); EOSINOPHILS % (AUTO) 0.3 % (0.0-3.0); LYMPHOCYTES % (AUTO) 8.8 % (20.0-45.0); MEAN CORPUSCULAR HEMOGLOBIN 28.1 PG (27.0-31.0); MEAN CORPUSCULAR HGB CONC 33.7 G/DL (32.0-36.0); MEAN CORPUSCULAR VOLUME 83 FL (80-99); MEAN PLATELET VOLUME 6.9 FL (6.5-10.1); MONOCYTES % (AUTO) 5.8 % (1.0-10.0); NEUTROPHILS % (AUTO) 84.9 % (45.0-75.0); PLATELET COUNT 211 K/UL (150-450); RED CELL DISTRIBUTION WIDTH 15.4 % (11.6-14.8); WHITE BLOOD COUNT 8.4 K/UL (4.8-10.8)
[2016-12-31 07:37] LABS: FERRITIN 265 ng/mL (10-230)
[2016-12-31 07:51] LABS: ALANINE AMINOTRANSFERASE 26 U/L (3-41); ALBUMIN/GLOBULIN RATIO 0.8 (1.0-2.7); ANION GAP 19 (5-15); ASPARTATE AMINO TRANSFERASE 17 U/L (5-40); CALCIUM 8.6 mg/dL (8.6-10.2); CARBON DIOXIDE 23 mEQ/L (20-30); CHLORIDE 94 mEQ/L (98-107); CHOLESTEROL 132 mg/dL (< 200); CHOLESTEROL/HDL RATIO 3.3 (3.3-4.4); CREATININE 3.1 mg/dL (0.7-1.2); CRP QUANT 24.6 mg/dL (< 0.5); GLOMERULAR FILTRATION RATE 20.2 mL/min (>60); LDL CHOLESTEROL (CALC.) 66 mg/dL (60-99); MAGNESIUM 2.1 mg/dL (1.7-2.5); PHOSPHORUS 5.6 mg/dL (2.5-4.8); POTASSIUM 3.8 mEQ/L (3.4-4.9); SODIUM 136 mEQ/L (135-145); TOTAL PROTEIN 6.3 g/dL (6.6-8.7); URIC ACID 11.9 mg/dL (3.0-7.5)
[2016-12-31 07:54] LABS: HEMOLYSIS 35; IRON 21 ug/dL (59-158); TOTAL IRON BINDING CAPACITY 201 ug/dL (250-400)
[2016-12-31 08:00] VITALS: BP 123/72
[2016-12-31] MEDS: Metoprolol 25mg tab ORAL SCH ×2 (08:46→21:45)
[2016-12-31] MEDS: Heparin 5000 units/ml inj SUBQ SCH ×2 (08:46→21:52)
[2016-12-31] MEDS: Aspirin EC 81mg tab ORAL SCH (08:46)
[2016-12-31] MEDS: Cefepime HCl 500 MG in D5W 55 ML IV SCH (09:59)
[2016-12-31 12:00] VITALS: BP 118/61
[2016-12-31] MEDS: Azithromycin 500 MG in D5W 275 ML IV SCH (12:39)
--- NOTE | 2016-12-31 15:13 | Diagnostic Imaging Report ---
Indications: Status post left thoracentesis Technique: Portable upright AP chest Findings: Comparison: 12/29/2016 Left pleural effusion has decreased in volume. No pneumothorax identified. Bony vascular redistribution, bilateral interstitial infiltrates, right pleural effusion persist, unchanged. Linear densities persist the right midlung. IMPRESSION: Decrease in left pleural effusion volume following thoracentesis; no pneumothorax Bilateral congestive changes otherwise unchanged
--- NOTE | 2016-12-31 15:15 | Diagnostic Imaging Report ---
Indications: Shortness of breath, bilateral pleural effusions left greater than right Technique: Procedure, indications, risks and alternatives were explained to the patient who understands and gives consent to proceed. The left pleural space was surveyed sonographically. The skin over the posterior aspect of the left hemithorax was sterilely prepped and draped in usual fashion. Skin and subcutaneous soft tissues were infiltrated with 1% lidocaine and sodium bicarbonate. A small dermatotomy was made, through which an 8 [place] thoracentesis catheter was advanced under direct sonographic guidance into the left pleural space. Pleural fluid was maximally drained via vacuum apparatus.. Followup ultrasound imaging was performed. Catheter was removed. Dermatotomy site was manually compressed to achieve stasis, then cleansed and bandaged. Patient tolerated the procedure well without immediate complications. Fluid was sent to laboratory and pathology for analysis, as ordered. Findings: Initial imaging demonstrates a large amount of fluid within the left pleural space. Post procedure imaging demonstrates resolution of fluid. Thoracentesis yields 1300 cc of clear light yellow fluid. IMPRESSION: Ultrasound-guided left thoracentesis yielding 1300 cc of of pleural fluid , laboratory and pathology results pending. Followup chest radiograph pending.
--- NOTE | 2016-12-31 15:30 | Pulmonology Progress Note ---
Assessment/Plan Problems: (1) Pleural effusion (2) Pneumonia (3) Encephalopathy acute (4) Chronic kidney disease (CKD) (5) COPD (chronic obstructive pulmonary disease) (6) Diabetes mellitus (7) Ventricular mural thrombus (8) Cardiomyopathy (9) BPH (benign prostatic hyperplasia) Assessment/Plan US guided thoracentesis done 1 1/2 liters were removed IV antibiotics cardiology to see for mural thormbosis Urology evaluation appreciated. afebrile, repeat cxr in am is negative might go home Subjective ROS Limited/Unobtainable: No Interval Events: thoracentesis done Allergies: Coded Allergies: No Known Allergies (Unverified , 07/30/13) Objective Last 24 Hour Vital Signs Date Time Temp Pulse Resp B/P Pulse Ox O2 Delivery O2 Flow Rate FiO2 12/31/16 13:55 102/59 12/31/16 12:00 97.7 79 20 118/61 95 Room Air 12/31/16 08:46 86 123/72 12/31/16 08:00 97.7 86 20 123/72 89 Room Air 12/31/16 06:00 93/55 12/31/16 04:00 98.7 69 18 89/54 94 Nasal Cannula 12/31/16 00:00 97.2 72 17 94/59 96 Nasal Cannula 12/30/16 22:00 91/54 12/30/16 21:00 65 82/50 12/30/16 20:00 97.0 65 17 82/50 91 Nasal Cannula 12/30/16 16:00 97.3 74 20 99/53 90 Nasal Cannula 4.0 Intake and Output 12/30/16 12/31/16 19:00 07:00 Intake Total 200 ml Output Total 500 ml 300 ml Balance -300 ml -300 ml Intake Oral 200 ml Output Urine Total 500 ml 300 ml General Appearance: WD/WN HEENT: normocephalic Respiratory/Chest: chest wall non-tender, lungs clear Cardiovascular: normal peripheral pulses, regular rhythm Abdomen: normal bowel sounds, no organomegaly Extremities: no clubbing 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, no motor/sensory deficits, oriented x 3 Lymphatic: no neck adenopathy Microbiology Date/Time Source Procedure Growth Status 12/29/16 04:20 Blood Blood Culture - Preliminary NO GROWTH AFTER 48 HOURS Resulted 12/29/16 04:15 Blood Blood Culture - Preliminary NO GROWTH AFTER 48 HOURS Resulted 12/29/16 15:00 Sputum Gram Stain - Final Resulted 12/29/16 15:00 Sputum Culture - Preliminary Qi Albicans Usual Respiratory [place] Resulted 12/29/16 05:12 Urine,Clean Catch Urine Culture - Final NO GROWTH AFTER 48 HOURS Complete Laboratory Tests 12/30/16 17:40: Prothrombin Time 11.4, Prothromb Time International Ratio 1.1, Activated Partial Thromboplast Time 41H 12/30/16 23:15: Urine Color Pale yellow, Urine Appearance Clear, Urine pH 5, Urine Specific [place] 1.020, Urine Protein 3+H, Urine Glucose (UA) Negative, Urine Ketones Negative, Urine Occult Blood 2+H, Urine Nitrite Negative, Urine Bilirubin Negative, Urine Urobilinogen Normal, Urine Leukocyte Esterase Negative, Urine RBC 20-30H, Urine WBC 0-2, Urine Squamous Epithelial Cells None, Urine Bacteria Few, Urine Hyaline Casts 0-2H, Urine Fine Granular Casts 0-2H, Urine Coarse Granular Casts 2-4H, Urine Random Sodium 26 12/31/16 04:45: White Blood Count 8.4, Red Blood Count 3.10L, Hemoglobin 8.7L, Hematocrit 25.8L , Mean Corpuscular Volume 83, Mean Corpuscular Hemoglobin 28.1, Mean Corpuscular Hemoglobin Concent 33.7, Red Cell Distribution Width 15.4H, Platelet Count 211, Mean Platelet Volume 6.9, Neutrophils (%) (Auto) 84.9H, Lymphocytes (%) (Auto) 8.8L, Monocytes (%) (Auto) 5.8, Eosinophils (%) (Auto) 0.3, Basophils (%) (Auto) 0.3, Sodium Level 136, Potassium Level 3.8, Chloride Level 94L, Carbon Dioxide Level 23, Anion Gap 19H, Blood Urea Nitrogen 58H, Creatinine 3.1H, Estimat Glomerular Filtration Rate 20.2, Glucose Level 131H, Hemoglobin A1c 9.8H, Uric Acid 11.9H, Calcium Level 8.6, Phosphorus Level 5.6H, Magnesium Level 2.1, Iron Level 21L, Total Iron Binding Capacity 201L, Percent Iron Saturation 10L, Unsaturated Iron Binding 180, Ferritin 265H, Total Bilirubin 0.4, Gamma Glutamyl Transpeptidase 59, Aspartate Amino Transf (AST/ SGOT) 17, Alanine Aminotransferase (ALT/SGPT) 26, Alkaline Phosphatase 130H, Total Creatine Kinase 27L, C-Reactive Protein, Quantitative 24.6H, Pro-B-Type Natriuretic Peptide 56515Q, Total Protein 6.3L, Albumin 2.8L, Globulin 3.5, Albumin/Globulin Ratio 0.8L, Triglycerides Level 132, Cholesterol Level 132, LDL Cholesterol 66, HDL Cholesterol 40, Cholesterol/HDL Ratio 3.3, Vitamin B12 Level 525, Folate [Pending], Thyroid Stimulating Hormone (TSH) 1.090 12/31/16 05:00: Urine Eosinophils None seen Current Medications Medications (Trade) Dose Ordered Sig/Leslee Route PRN Reason Start Time Stop Time Status Last Admin Dose Admin Acetaminophen (Tylenol) 650 mg Q4H PRN ORAL Mild Pain/Temp > 100.5 12/29/16 15:45 01/28/17 15:44 12/30/16 14:27 Acetaminophen/ Hydrocodone Bitart 1 tab 1 tab Q4H PRN ORAL Moderate Pain (Pain Scale 4-6) 12/29/16 22:00 01/05/17 21:59 12/29/16 22:58 Albuterol/ Ipratropium (DuoNeb 0.5-3(2.5)mg/3ml) 3 ml EVERY 4 HOURS PRN HHN Shortness of Breath 12/29/16 06:45 01/03/17 06:44 Aspirin (Ecotrin) 81 mg DAILY ORAL 12/29/16 09:00 01/28/17 08:59 12/31/16 08:46 Atorvastatin Calcium (Lipitor) 40 mg BEDTIME ORAL 12/29/16 21:00 01/28/17 20:59 12/30/16 22:15 Azithromycin/ Dextrose (Zithromax/D5W) 275 ml @ 275 mls/hr Q24HRS IV 12/29/16 12:00 01/04/17 12:59 12/31/16 12:39 Cefepime HCl/ Dextrose (Maxipime/D5W) 55 ml @ 110 mls/hr Q24H IV 12/31/16 10:00 01/07/17 09:59 12/31/16 09:59 Dextrose STAT PRN IV Hypoglycemia 12/29/16 06:45 01/28/17 06:44 Finasteride (Proscar) 5 mg QHS ORAL 12/30/16 21:00 01/29/17 20:59 12/30/16 22:14 Heparin Sodium (Porcine) (Heparin 5000 units/ml) 5,000 units EVERY 12 HOURS SUBQ 12/29/16 09:00 01/28/17 08:59 12/30/16 22:16 Hydralazine HCl (Apresoline) 10 mg EVERY 8 HOURS ORAL 12/29/16 14:00 01/28/17 13:59 12/30/16 06:00 Insulin Aspart (NovoLOG) BEFORE MEALS AND HS SUBQ 12/29/16 11:30 01/28/17 11:29 12/31/16 12:40 Metoprolol Tartrate (Lopressor) 25 mg Q12HR ORAL 12/29/16 09:00 01/28/17 08:59 12/31/16 08:46 Nitroglycerin (Ntg) 0.4 mg Q5M PRN SL Prn Chest Pain 12/29/16 06:45 01/28/17 06:44 Ondansetron HCl (Zofran) 4 mg Q6H PRN IVP Nausea & Vomiting 12/29/16 06:45 01/28/17 06:44 12/31/16 13:49 Polyethylene Glycol (Miralax) 17 gm DAILYPRN PRN ORAL Constipation 12/29/16 06:45 01/28/17 06:44 Promethazine HCl/ Codeine (Phenergan with Codeine) 5 ml Q4H PRN ORAL For Cough 12/29/16 06:45 01/28/17 06:44 Tamsulosin HCl (Flomax) 0.4 mg BEDTIME ORAL 12/30/16 21:00 01/29/17 20:59 12/30/16 22:15 Temazepam (Restoril) 15 mg HSPRN PRN ORAL Insomnia 12/29/16 06:45 01/05/17 06:44 SIM ROJAS Dec 31, 2016 15:30
[2016-12-31] MEDS: Norco 5mg/325mg tab ORAL PRN (15:33)
[2016-12-31 16:00] VITALS: BP 126/68
--- NOTE | 2016-12-31 16:03 | General Progress Note ---
Assessment/Plan Status: unchanged Status Narrative Cr stable Assessment/Plan status: acute renal failure- with high K possible underlying CKD Urinary retention- CHF / cardiomyopathy Anemia Plan: Low dose Lasix 2 D Echo : Global left ventricular hypokinesis. Apical, distal septal and lateral akinesis. Left ventricular ejection fraction estimated to be 40-45%. Anemia [place] Adjust meds avoid nephrotoxics Monitor renal parameters Subjective ROS Limited/Unobtainable: No Constitutional: Reports: malaise, weakness Respiratory: Reports: shortness of breath Allergies: Coded Allergies: No Known Allergies (Unverified , 07/30/13) Objective Last 24 Hour Vital Signs Date Time Temp Pulse Resp B/P Pulse Ox O2 Delivery O2 Flow Rate FiO2 12/31/16 13:55 102/59 12/31/16 12:00 97.7 79 20 118/61 95 Room Air 12/31/16 08:46 86 123/72 12/31/16 08:00 97.7 86 20 123/72 89 Room Air 12/31/16 06:00 93/55 12/31/16 04:00 98.7 69 18 89/54 94 Nasal Cannula 12/31/16 00:00 97.2 72 17 94/59 96 Nasal Cannula 12/30/16 22:00 91/54 12/30/16 21:00 65 82/50 12/30/16 20:00 97.0 65 17 82/50 91 Nasal Cannula Intake and Output 12/30/16 12/31/16 19:00 07:00 Intake Total 200 ml Output Total 500 ml 300 ml Balance -300 ml -300 ml Intake Oral 200 ml Output Urine Total 500 ml 300 ml Laboratory Tests 12/30/16 17:40: Prothrombin Time 11.4, Prothromb Time International Ratio 1.1, Activated Partial Thromboplast Time 41H 12/30/16 23:15: Urine Color Pale yellow, Urine Appearance Clear, Urine pH 5, Urine Specific [place] 1.020, Urine Protein 3+H, Urine Glucose (UA) Negative, Urine Ketones Negative, Urine Occult Blood 2+H, Urine Nitrite Negative, Urine Bilirubin Negative, Urine Urobilinogen Normal, Urine Leukocyte Esterase Negative, Urine RBC 20-30H, Urine WBC 0-2, Urine Squamous Epithelial Cells None, Urine Bacteria Few, Urine Hyaline Casts 0-2H, Urine Fine Granular Casts 0-2H, Urine Coarse Granular Casts 2-4H, Urine Random Sodium 26 12/31/16 04:45: White Blood Count 8.4, Red Blood Count 3.10L, Hemoglobin 8.7L, Hematocrit 25.8L , Mean Corpuscular Volume 83, Mean Corpuscular Hemoglobin 28.1, Mean Corpuscular Hemoglobin Concent 33.7, Red Cell Distribution Width 15.4H, Platelet Count 211, Mean Platelet Volume 6.9, Neutrophils (%) (Auto) 84.9H, Lymphocytes (%) (Auto) 8.8L, Monocytes (%) (Auto) 5.8, Eosinophils (%) (Auto) 0.3, Basophils (%) (Auto) 0.3, Sodium Level 136, Potassium Level 3.8, Chloride Level 94L, Carbon Dioxide Level 23, Anion Gap 19H, Blood Urea Nitrogen 58H, Creatinine 3.1H, Estimat Glomerular Filtration Rate 20.2, Glucose Level 131H, Hemoglobin A1c 9.8H, Uric Acid 11.9H, Calcium Level 8.6, Phosphorus Level 5.6H, Magnesium Level 2.1, Iron Level 21L, Total Iron Binding Capacity 201L, Percent Iron Saturation 10L, Unsaturated Iron Binding 180, Ferritin 265H, Total Bilirubin 0.4, Gamma Glutamyl Transpeptidase 59, Aspartate Amino Transf (AST/ SGOT) 17, Alanine Aminotransferase (ALT/SGPT) 26, Alkaline Phosphatase 130H, Total Creatine Kinase 27L, C-Reactive Protein, Quantitative 24.6H, Pro-B-Type Natriuretic Peptide 47920A, Total Protein 6.3L, Albumin 2.8L, Globulin 3.5, Albumin/Globulin Ratio 0.8L, Triglycerides Level 132, Cholesterol Level 132, LDL Cholesterol 66, HDL Cholesterol 40, Cholesterol/HDL Ratio 3.3, Vitamin B12 Level 525, Folate [Pending], Thyroid Stimulating Hormone (TSH) 1.090 12/31/16 05:00: Urine Eosinophils None seen Height (Feet): 5 Height (Inches): 2.00 Weight (Pounds): 145 Cardiovascular: normal rate Respiratory/Chest: decreased breath sounds Abdomen: distended RASHMI VILLALOBOS Dec 31, 2016 16:03
[2016-12-31] MEDS ORDERED: Tubing IV Secondary IV ONE (16:40)
[2016-12-31] MEDS ORDERED: NS 275ml ONE (16:40)
[2016-12-31] MEDS: Docusate 100mg cap ORAL SCH (17:52)
--- NOTE | 2016-12-31 18:01 | Infectious Diseases Prog Note ---
Assessment/Plan Assessment/Plan A: The patient is a 66-year-old male with fever , SP pneumonia, improving Fever , SP Pneumonia History of recent pneumonia. Mild leukocytosis, SP Rule out urinary tract infection LIDIA , Cr increasing Left hip pain CT : unremarkable Diabetes. COPD/asthma. History of right inguinal hernia. History of hematuria PLAN: cont on Zosyn and Zithromax d# 3 / 7 , ok to DC on oral Levaquin to complete the course Monitor CBC. Monitor BMP. Monitor cultures (blood, urine,) Subjective Allergies: Coded Allergies: No Known Allergies (Unverified , 07/30/13) Subjective no new complain Objective Vital Signs Last 24 Hour Vital Signs Date Time Temp Pulse Resp B/P Pulse Ox O2 Delivery O2 Flow Rate FiO2 12/31/16 17:30 Nasal Cannula 3.0 32 12/31/16 17:30 93 Nasal Cannula 3.0 32 12/31/16 16:00 97.7 79 20 126/68 89 Room Air 12/31/16 13:55 102/59 12/31/16 12:00 97.7 79 20 118/61 95 Room Air 12/31/16 08:46 86 123/72 12/31/16 08:00 97.7 86 20 123/72 89 Room Air 12/31/16 06:00 93/55 12/31/16 04:00 98.7 69 18 89/54 94 Nasal Cannula 12/31/16 00:00 97.2 72 17 94/59 96 Nasal Cannula 12/30/16 22:00 91/54 12/30/16 21:00 65 82/50 12/30/16 20:00 97.0 65 17 82/50 91 Nasal Cannula Height (Feet): 5 Height (Inches): 2.00 Weight (Pounds): 145 Microbiology Date/Time Source Procedure Growth Status 12/29/16 04:20 Blood Blood Culture - Preliminary NO GROWTH AFTER 48 HOURS Resulted 12/29/16 04:15 Blood Blood Culture - Preliminary NO GROWTH AFTER 48 HOURS Resulted 12/29/16 15:00 Sputum Gram Stain - Final Resulted 12/29/16 15:00 Sputum Culture - Preliminary Qi Albicans Usual Respiratory Barbara Resulted 12/29/16 05:12 Urine,Clean Catch Urine Culture - Final NO GROWTH AFTER 48 HOURS Complete Laboratory Tests Test 12/30/16 23:15 12/31/16 04:45 12/31/16 05:00 Urine Color Pale yellow Urine Appearance Clear Urine pH 5 (4.5-8.0) Urine Specific [place] 1.020 (1.005-1.035) Urine Protein 3+ (NEGATIVE) H Urine Glucose (UA) Negative (NEGATIVE) Urine Ketones Negative (NEGATIVE) Urine Occult Blood 2+ (NEGATIVE) H Urine Nitrite Negative (NEGATIVE) Urine Bilirubin Negative (NEGATIVE) Urine Urobilinogen Normal MG/DL (0.0-1.0) Urine Leukocyte Esterase Negative (NEGATIVE) Urine RBC 20-30 /HPF (0 - 0) H Urine WBC 0-2 /HPF (0 - 0) Urine Squamous Epithelial Cells None /LPF (NONE/OCC) Urine Bacteria Few /HPF (NONE) Urine Hyaline Casts 0-2 /LPF (NONE) H Urine Fine Granular Casts 0-2 /LPF (NONE) H Urine Coarse Granular Casts 2-4 /LPF (NONE) H Urine Random Sodium 26 mmol/L White Blood Count 8.4 K/UL (4.8-10.8) Red Blood Count 3.10 M/UL (4.70-6.10) L Hemoglobin 8.7 G/DL (14.2-18.0) L Hematocrit 25.8 % (42.0-52.0) L Mean Corpuscular Volume 83 FL (80-99) Mean Corpuscular Hemoglobin 28.1 PG (27.0-31.0) Mean Corpuscular Hemoglobin Concent 33.7 G/DL (32.0-36.0) Red Cell Distribution Width 15.4 % (11.6-14.8) H Platelet Count 211 K/UL (150-450) Mean Platelet Volume 6.9 FL (6.5-10.1) Neutrophils (%) (Auto) 84.9 % (45.0-75.0) H Lymphocytes (%) (Auto) 8.8 % (20.0-45.0) L Monocytes (%) (Auto) 5.8 % (1.0-10.0) Eosinophils (%) (Auto) 0.3 % (0.0-3.0) Basophils (%) (Auto) 0.3 % (0.0-2.0) Sodium Level 136 mEQ/L (135-145) Potassium Level 3.8 mEQ/L (3.4-4.9) Chloride Level 94 mEQ/L (98-107) L Carbon Dioxide Level 23 mEQ/L (20-30) Anion Gap 19 (5-15) H Blood Urea Nitrogen 58 mg/dL (7-23) H Creatinine 3.1 mg/dL (0.7-1.2) H Estimat Glomerular Filtration Rate 20.2 mL/min (>60) Glucose Level 131 mg/dL (74-106) H Hemoglobin A1c 9.8 % (< 6.0) H Uric Acid 11.9 mg/dL (3.0-7.5) H Calcium Level 8.6 mg/dL (8.6-10.2) Phosphorus Level 5.6 mg/dL (2.5-4.8) H Magnesium Level 2.1 mg/dL (1.7-2.5) Iron Level 21 ug/dL (59-158) L Total Iron Binding Capacity 201 ug/dL (250-400) L Percent Iron Saturation 10 % (15-50) L Unsaturated Iron Binding 180 ug/dL (112-346) Ferritin 265 ng/mL (10-230) H Total Bilirubin 0.4 mg/dL (0.0-1.2) Gamma Glutamyl Transpeptidase 59 U/L (8-61) Aspartate Amino Transf (AST/SGOT) 17 U/L (5-40) Alanine Aminotransferase (ALT/SGPT) 26 U/L (3-41) Alkaline Phosphatase 130 U/L (40-129) H Total Creatine Kinase 27 U/L (38-174) L C-Reactive Protein, Quantitative 24.6 mg/dL (< 0.5) H Pro-B-Type Natriuretic Peptide 99909 pg/mL (0-125) H Total Protein 6.3 g/dL (6.6-8.7) L Albumin 2.8 g/dL (3.5-5.2) L Globulin 3.5 g/dL Albumin/Globulin Ratio 0.8 (1.0-2.7) L Triglycerides Level 132 mg/dL (< 150) Cholesterol Level 132 mg/dL (< 200) LDL Cholesterol 66 mg/dL (60-99) HDL Cholesterol 40 mg/dL (> 60) Cholesterol/HDL Ratio 3.3 (3.3-4.4) Vitamin B12 Level 525 pg/mL (211-946) Folate Pending Thyroid Stimulating Hormone (TSH) 1.090 uIU/mL (0.300-4.500) Urine Eosinophils None seen Current Medications Medications (Trade) Dose Ordered Sig/Leslee Route PRN Reason Start Time Stop Time Status Last Admin Dose Admin Acetaminophen (Tylenol) 650 mg Q4H PRN ORAL Mild Pain/Temp > 100.5 12/29/16 15:45 01/28/17 15:44 12/30/16 14:27 Acetaminophen/ Hydrocodone Bitart 1 tab 1 tab Q4H PRN ORAL Moderate Pain (Pain Scale 4-6) 12/29/16 22:00 01/05/17 21:59 12/31/16 15:33 Albuterol/ Ipratropium (DuoNeb 0.5-3(2.5)mg/3ml) 3 ml EVERY 4 HOURS PRN HHN Shortness of Breath 12/29/16 06:45 01/03/17 06:44 Aspirin (Ecotrin) 81 mg DAILY ORAL 12/29/16 09:00 01/28/17 08:59 12/31/16 08:46 Atorvastatin Calcium (Lipitor) 40 mg BEDTIME ORAL 12/29/16 21:00 01/28/17 20:59 12/30/16 22:15 Azithromycin/ Dextrose (Zithromax/D5W) 275 ml @ 275 mls/hr Q24HRS IV 12/29/16 12:00 01/04/17 12:59 12/31/16 12:39 Cefepime HCl/ Dextrose (Maxipime/D5W) 55 ml @ 110 mls/hr Q24H IV 12/31/16 10:00 01/07/17 09:59 12/31/16 09:59 Dextrose STAT PRN IV Hypoglycemia 12/29/16 06:45 01/28/17 06:44 Docusate Sodium (Colace) 100 mg THREE TIMES A DAY ORAL 12/31/16 18:00 01/30/17 17:59 Finasteride (Proscar) 5 mg QHS ORAL 12/30/16 21:00 01/29/17 20:59 12/30/16 22:14 Heparin Sodium (Porcine) (Heparin 5000 units/ml) 5,000 units EVERY 12 HOURS SUBQ 12/29/16 09:00 01/28/17 08:59 12/30/16 22:16 Hydralazine HCl (Apresoline) 10 mg EVERY 6 HOURS ORAL 12/31/16 18:00 01/30/17 17:59 Insulin Aspart (NovoLOG) BEFORE MEALS AND HS SUBQ 12/29/16 11:30 01/28/17 11:29 12/31/16 12:40 Metoprolol Tartrate (Lopressor) 25 mg Q12HR ORAL 12/29/16 09:00 01/28/17 08:59 12/31/16 08:46 Nitroglycerin (Ntg) 0.4 mg Q5M PRN SL Prn Chest Pain 12/29/16 06:45 01/28/17 06:44 Ondansetron HCl (Zofran) 4 mg Q6H PRN IVP Nausea & Vomiting 12/29/16 06:45 01/28/17 06:44 12/31/16 13:49 Polyethylene Glycol (Miralax) 17 gm DAILYPRN PRN ORAL Constipation 12/29/16 06:45 01/28/17 06:44 Promethazine HCl/ Codeine (Phenergan with Codeine) 5 ml Q4H PRN ORAL For Cough 12/29/16 06:45 01/28/17 06:44 Tamsulosin HCl (Flomax) 0.4 mg BEDTIME ORAL 12/30/16 21:00 01/29/17 20:59 12/30/16 22:15 Temazepam (Restoril) 15 mg HSPRN PRN ORAL Insomnia 12/29/16 06:45 01/05/17 06:44 DARIUS SANCHEZ M.D. Dec 31, 2016 18:01
[2016-12-31 20:00] VITALS: BP 123/60
[2016-12-31 20:44] LABS: APPEARANCE, BODY FLUID HAZY; BD FL SOURCE THORACENTESIS; BD FL VOLUME 16 mL
[2016-12-31 21:07] LABS: BODY FLUID NUCLEATED CELLS 98 /CUMM; BODY FLUID RBC 143 /CUMM; MONONUCLEAR WBC 19 %; POLYMORPHONUCLEAR WBC 70 %
[2016-12-31] MEDS: Tamsulosin 0.4mg cap ORAL SCH (21:45)
--- NOTE | 2016-12-31 23:45 | Cardiology Progress Note ---
Assessment/Plan Assessment/Plan 1. Sinus tachycardia, likely due to pneumonia, hydration., IV Abx, pulmonary toilet, treatment of the underlying etiology is the answer. Will consider AV gómez agents if persistent. 2. Possible ischemic CM with LVEF ~45%, ?prior hx of AL, ?CAD 3. HTN, on hydralazine and metoprolol. 4. DM, consider ASA and statins detention if no contraindications 5. Renal failure. Subjective Subjective No cardiac events. Objective Last 24 Hour Vital Signs Date Time Temp Pulse Resp B/P Pulse Ox O2 Delivery O2 Flow Rate FiO2 12/31/16 21:45 91 123/60 12/31/16 20:00 97.7 76 20 123/60 91 Room Air 12/31/16 17:53 118/62 12/31/16 17:30 Nasal Cannula 3.0 32 12/31/16 17:30 93 Nasal Cannula 3.0 32 12/31/16 16:00 97.7 79 20 126/68 89 Room Air 12/31/16 13:55 102/59 12/31/16 12:00 97.7 79 20 118/61 95 Room Air 12/31/16 08:46 86 123/72 12/31/16 08:00 97.7 86 20 123/72 89 Room Air 12/31/16 06:00 93/55 12/31/16 04:00 98.7 69 18 89/54 94 Nasal Cannula 12/31/16 00:00 97.2 72 17 94/59 96 Nasal Cannula Intake and Output 12/30/16 12/31/16 19:00 07:00 Intake Total 200 ml Output Total 500 ml 300 ml Balance -300 ml -300 ml Intake Oral 200 ml Output Urine Total 500 ml 300 ml 2D Echo: LVEF ~45%,apical septal/lateral wall HK,large pleural effusion, RVSP 48mmHg Laboratory Tests Test 12/31/16 04:45 12/31/16 05:00 12/31/16 16:45 White Blood Count 8.4 K/UL (4.8-10.8) Red Blood Count 3.10 M/UL (4.70-6.10) L Hemoglobin 8.7 G/DL (14.2-18.0) L Hematocrit 25.8 % (42.0-52.0) L Mean Corpuscular Volume 83 FL (80-99) Mean Corpuscular Hemoglobin 28.1 PG (27.0-31.0) Mean Corpuscular Hemoglobin Concent 33.7 G/DL (32.0-36.0) Red Cell Distribution Width 15.4 % (11.6-14.8) H Platelet Count 211 K/UL (150-450) Mean Platelet Volume 6.9 FL (6.5-10.1) Neutrophils (%) (Auto) 84.9 % (45.0-75.0) H Lymphocytes (%) (Auto) 8.8 % (20.0-45.0) L Monocytes (%) (Auto) 5.8 % (1.0-10.0) Eosinophils (%) (Auto) 0.3 % (0.0-3.0) Basophils (%) (Auto) 0.3 % (0.0-2.0) Sodium Level 136 mEQ/L (135-145) Potassium Level 3.8 mEQ/L (3.4-4.9) Chloride Level 94 mEQ/L (98-107) L Carbon Dioxide Level 23 mEQ/L (20-30) Anion Gap 19 (5-15) H Blood Urea Nitrogen 58 mg/dL (7-23) H Creatinine 3.1 mg/dL (0.7-1.2) H Estimat Glomerular Filtration Rate 20.2 mL/min (>60) Glucose Level 131 mg/dL (74-106) H Hemoglobin A1c 9.8 % (< 6.0) H Uric Acid 11.9 mg/dL (3.0-7.5) H Calcium Level 8.6 mg/dL (8.6-10.2) Phosphorus Level 5.6 mg/dL (2.5-4.8) H Magnesium Level 2.1 mg/dL (1.7-2.5) Iron Level 21 ug/dL (59-158) L Total Iron Binding Capacity 201 ug/dL (250-400) L Percent Iron Saturation 10 % (15-50) L Unsaturated Iron Binding 180 ug/dL (112-346) Ferritin 265 ng/mL (10-230) H Total Bilirubin 0.4 mg/dL (0.0-1.2) Gamma Glutamyl Transpeptidase 59 U/L (8-61) Aspartate Amino Transf (AST/SGOT) 17 U/L (5-40) Alanine Aminotransferase (ALT/SGPT) 26 U/L (3-41) Alkaline Phosphatase 130 U/L (40-129) H Total Creatine Kinase 27 U/L (38-174) L C-Reactive Protein, Quantitative 24.6 mg/dL (< 0.5) H Pro-B-Type Natriuretic Peptide 73498 pg/mL (0-125) H Total Protein 6.3 g/dL (6.6-8.7) L Albumin 2.8 g/dL (3.5-5.2) L Globulin 3.5 g/dL Albumin/Globulin Ratio 0.8 (1.0-2.7) L Triglycerides Level 132 mg/dL (< 150) Cholesterol Level 132 mg/dL (< 200) LDL Cholesterol 66 mg/dL (60-99) HDL Cholesterol 40 mg/dL (> 60) Cholesterol/HDL Ratio 3.3 (3.3-4.4) Vitamin B12 Level 525 pg/mL (211-946) Folate Pending Thyroid Stimulating Hormone (TSH) 1.090 uIU/mL (0.300-4.500) Urine Eosinophils None seen Body Fluid Source Thoracentesis Body Fluid Volume 16 mL Body Fluid Appearance Hazy Body Fluid RBC 143 /CUMM Body Fluid Total Nucleated Cells 98 /CUMM Body Fluid Polynuclear WBCs (%) 70 % Body Fluid Mononuclear WBCs (%) 19 % Body Fluid Mesothelial Cells (%) 11 % Body Fluid Glucose Pending Body Fluid Total Protein Pending Body Fluid Albumin Pending Microbiology Date/Time Source Procedure Growth Status 12/29/16 04:20 Blood Blood Culture - Preliminary NO GROWTH AFTER 48 HOURS Resulted 12/29/16 04:15 Blood Blood Culture - Preliminary NO GROWTH AFTER 48 HOURS Resulted 12/29/16 15:00 Sputum Gram Stain - Final Resulted 12/29/16 15:00 Sputum Culture - Preliminary Qi Albicans Usual Respiratory Barbara Resulted 12/29/16 05:12 Urine,Clean Catch Urine Culture - Final NO GROWTH AFTER 48 HOURS Complete Objective HEENT: normocephalic, atraumatic, bilateral eye EOMI, bilateral eye PERRL Neck: negative JVD, no carotid bruit with normal upstroke Respiratory: chest non-tender, rhonchi B/L Cardiovascular: regular rate, rhythm, normal S1S2, no murmurs, gallops or rubs Gastrointestinal: normal bowel sounds, non tender, no mass, no organomegaly, no bruit, non-distended Musculoskeletal: no edema, clubbing or cyanosis SALINA HOFFMAN Dec 31, 2016 23:45
[2017-01-01] VITALS: BP 129/55
[2017-01-01] MEDS: HydrALAZINE 10mg Tab ORAL SCH ×3 (01:18→12:04)
[2017-01-01] MEDS: Norco 5mg/325mg tab ORAL PRN (01:19)
[2017-01-01 04:00] VITALS: BP 121/56
[2017-01-01] MEDS: NovoLOG Insulin Flexpen SUBQ SCH ×2 (07:05→11:55)
[2017-01-01 07:25] LABS: BASOPHILS % (AUTO) 0.4 % (0.0-2.0); EOSINOPHILS % (AUTO) 0.1 % (0.0-3.0); LYMPHOCYTES % (AUTO) 10.2 % (20.0-45.0); MEAN CORPUSCULAR HEMOGLOBIN 27.4 PG (27.0-31.0); MEAN CORPUSCULAR HGB CONC 33.5 G/DL (32.0-36.0); MEAN CORPUSCULAR VOLUME 82 FL (80-99); MEAN PLATELET VOLUME 6.9 FL (6.5-10.1); MONOCYTES % (AUTO) 5.7 % (1.0-10.0); NEUTROPHILS % (AUTO) 83.6 % (45.0-75.0); PLATELET COUNT 232 K/UL (150-450); RED BLOOD COUNT 3.16 M/UL (4.70-6.10); RED CELL DISTRIBUTION WIDTH 15.5 % (11.6-14.8)
[2017-01-01 07:50] LABS: ALBUMIN/GLOBULIN RATIO 0.8 (1.0-2.7); CALCIUM 8.4 mg/dL (8.6-10.2); CREATININE 2.9 mg/dL (0.7-1.2); GLOMERULAR FILTRATION RATE 21.8 mL/min (>60); POTASSIUM 3.3 mEQ/L (3.4-4.9)
[2017-01-01 07:51] LABS: CRP QUANT 14.8 mg/dL (< 0.5); MAGNESIUM 2.1 mg/dL (1.7-2.5); PHOSPHORUS 4.9 mg/dL (2.5-4.8)
[2017-01-01 07:57] VITALS: BP 126/79
[2017-01-01] MEDS: Docusate 100mg cap ORAL SCH ×2 (09:42→13:39)
[2017-01-01] MEDS: Aspirin EC 81mg tab ORAL SCH (09:42)
[2017-01-01] MEDS: Metoprolol 25mg tab ORAL SCH (09:45)
[2017-01-01] MEDS: Heparin 5000 units/ml inj SUBQ SCH (09:47)
--- NOTE | 2017-01-01 09:59 | Infectious Diseases Prog Note ---
Assessment/Plan Assessment/Plan A: The patient is a 66-year-old male with fever , SP pneumonia, improving Scx:( Nl jabier and mariluz :colonizer ) Fever , SP Pneumonia History of recent pneumonia. Mild leukocytosis, SP Rule out urinary tract infection LIDIA , Cr increasing Left hip pain CT : unremarkable Diabetes. COPD/asthma. History of right inguinal hernia. History of hematuria PLAN: cont on Zosyn and Zithromax d# 4 / 7 , ok to DC on oral Levaquin to complete the course ( Rx in chart ) Monitor CBC. Monitor BMP. Monitor cultures (blood ) Subjective Allergies: Coded Allergies: No Known Allergies (Unverified , 07/30/13) Subjective comfortable Objective Vital Signs Last 24 Hour Vital Signs Date Time Temp Pulse Resp B/P Pulse Ox O2 Delivery O2 Flow Rate FiO2 01/01/17 07:57 97.0 83 21 126/79 95 Nasal Cannula 2.0 01/01/17 06:14 121/56 01/01/17 04:00 97.6 81 17 121/56 97 Room Air 01/01/17 02:18 97.7 01/01/17 01:18 129/55 01/01/17 00:00 97.7 67 20 129/55 95 Nasal Cannula 12/31/16 21:45 91 123/60 12/31/16 20:00 97.7 76 20 123/60 91 Room Air 12/31/16 17:53 118/62 12/31/16 17:30 Nasal Cannula 3.0 32 12/31/16 17:30 93 Nasal Cannula 3.0 32 12/31/16 16:00 97.7 79 20 126/68 89 Room Air 12/31/16 13:55 102/59 12/31/16 12:00 97.7 79 20 118/61 95 Room Air Height (Feet): 5 Height (Inches): 2.00 Weight (Pounds): 145 HEENT: anicteric Respiratory/Chest: no respiratory distress Cardiovascular: regularly irregular Abdomen: non distended Microbiology Date/Time Source Procedure Growth Status 12/29/16 15:00 Sputum Gram Stain - Final Complete 12/29/16 15:00 Sputum Culture - Final Mariluz Albicans Usual Upper Respiratory Jabier Complete Laboratory Tests Test 12/31/16 16:45 01/01/17 05:00 01/01/17 06:25 Body Fluid Source Thoracentesis Body Fluid Volume 16 mL Body Fluid Appearance Hazy Body Fluid RBC 143 /CUMM Body Fluid Total Nucleated Cells 98 /CUMM Body Fluid Polynuclear WBCs (%) 70 % Body Fluid Mononuclear WBCs (%) 19 % Body Fluid Mesothelial Cells (%) 11 % Body Fluid Glucose Pending Body Fluid Total Protein Pending Body Fluid Albumin Pending Urine Eosinophils None seen White Blood Count 7.0 K/UL (4.8-10.8) Red Blood Count 3.16 M/UL (4.70-6.10) L Hemoglobin 8.7 G/DL (14.2-18.0) L Hematocrit 25.9 % (42.0-52.0) L Mean Corpuscular Volume 82 FL (80-99) Mean Corpuscular Hemoglobin 27.4 PG (27.0-31.0) Mean Corpuscular Hemoglobin Concent 33.5 G/DL (32.0-36.0) Red Cell Distribution Width 15.5 % (11.6-14.8) H Platelet Count 232 K/UL (150-450) Mean Platelet Volume 6.9 FL (6.5-10.1) Neutrophils (%) (Auto) 83.6 % (45.0-75.0) H Lymphocytes (%) (Auto) 10.2 % (20.0-45.0) L Monocytes (%) (Auto) 5.7 % (1.0-10.0) Eosinophils (%) (Auto) 0.1 % (0.0-3.0) Basophils (%) (Auto) 0.4 % (0.0-2.0) Sodium Level 137 mEQ/L (135-145) Potassium Level 3.3 mEQ/L (3.4-4.9) L Chloride Level 95 mEQ/L (98-107) L Carbon Dioxide Level 23 mEQ/L (20-30) Anion Gap 19 (5-15) H Blood Urea Nitrogen 54 mg/dL (7-23) H Creatinine 2.9 mg/dL (0.7-1.2) H Estimat Glomerular Filtration Rate 21.8 mL/min (>60) Glucose Level 124 mg/dL (74-106) H Uric Acid 13.0 mg/dL (3.0-7.5) H Calcium Level 8.4 mg/dL (8.6-10.2) L Phosphorus Level 4.9 mg/dL (2.5-4.8) H Magnesium Level 2.1 mg/dL (1.7-2.5) Total Bilirubin 0.4 mg/dL (0.0-1.2) Aspartate Amino Transf (AST/SGOT) 14 U/L (5-40) Alanine Aminotransferase (ALT/SGPT) 21 U/L (3-41) Alkaline Phosphatase 128 U/L (40-129) C-Reactive Protein, Quantitative 14.8 mg/dL (< 0.5) H Pro-B-Type Natriuretic Peptide 33187 pg/mL (0-125) H Total Protein 6.0 g/dL (6.6-8.7) L Albumin 2.7 g/dL (3.5-5.2) L Globulin 3.3 g/dL Albumin/Globulin Ratio 0.8 (1.0-2.7) L Current Medications Medications (Trade) Dose Ordered Sig/Leslee Route PRN Reason Start Time Stop Time Status Last Admin Dose Admin Acetaminophen (Tylenol) 650 mg Q4H PRN ORAL Mild Pain/Temp > 100.5 12/29/16 15:45 01/28/17 15:44 12/30/16 14:27 Acetaminophen/ Hydrocodone Bitart 1 tab 1 tab Q4H PRN ORAL Moderate Pain (Pain Scale 4-6) 12/29/16 22:00 01/05/17 21:59 01/01/17 01:19 Albuterol/ Ipratropium (DuoNeb 0.5-3(2.5)mg/3ml) 3 ml EVERY 4 HOURS PRN HHN Shortness of Breath 12/29/16 06:45 01/03/17 06:44 Allopurinol (Allopurinol) 300 mg DAILY ORAL 01/01/17 09:30 01/31/17 09:29 Aspirin (Ecotrin) 81 mg DAILY ORAL 12/29/16 09:00 01/28/17 08:59 12/31/16 08:46 Atorvastatin Calcium (Lipitor) 40 mg BEDTIME ORAL 12/29/16 21:00 01/28/17 20:59 12/31/16 21:45 Azithromycin/ Dextrose (Zithromax/D5W) 275 ml @ 275 mls/hr Q24HRS IV 12/29/16 12:00 01/04/17 12:59 12/31/16 12:39 Cefepime HCl/ Dextrose (Maxipime/D5W) 55 ml @ 110 mls/hr Q24H IV 12/31/16 10:00 01/07/17 09:59 12/31/16 09:59 Dextrose STAT PRN IV Hypoglycemia 12/29/16 06:45 01/28/17 06:44 Docusate Sodium (Colace) 100 mg THREE TIMES A DAY ORAL 12/31/16 18:00 01/30/17 17:59 12/31/16 17:52 Finasteride (Proscar) 5 mg QHS ORAL 12/30/16 21:00 01/29/17 20:59 12/31/16 21:44 Heparin Sodium (Porcine) (Heparin 5000 units/ml) 5,000 units EVERY 12 HOURS SUBQ 12/29/16 09:00 01/28/17 08:59 12/31/16 21:52 Hydralazine HCl (Apresoline) 10 mg EVERY 6 HOURS ORAL 12/31/16 18:00 01/30/17 17:59 01/01/17 06:14 Insulin Aspart (NovoLOG) BEFORE MEALS AND HS SUBQ 12/29/16 11:30 01/28/17 11:29 01/01/17 07:05 Metoprolol Tartrate (Lopressor) 25 mg Q12HR ORAL 12/29/16 09:00 01/28/17 08:59 12/31/16 21:45 Nitroglycerin (Ntg) 0.4 mg Q5M PRN SL Prn Chest Pain 12/29/16 06:45 01/28/17 06:44 Ondansetron HCl (Zofran) 4 mg Q6H PRN IVP Nausea & Vomiting 12/29/16 06:45 01/28/17 06:44 01/01/17 06:36 Polyethylene Glycol (Miralax) 17 gm DAILYPRN PRN ORAL Constipation 12/29/16 06:45 01/28/17 06:44 Promethazine HCl/ Codeine (Phenergan with Codeine) 5 ml Q4H PRN ORAL For Cough 12/29/16 06:45 01/28/17 06:44 Tamsulosin HCl (Flomax) 0.4 mg BEDTIME ORAL 12/30/16 21:00 7/21/17 20:59 12/31/16 21:45 Temazepam (Restoril) 15 mg HSPRN PRN ORAL Insomnia 12/29/16 06:45 01/05/17 06:44 DARIUS SANCHEZ M.D. Jan 01, 2017 09:59
[2017-01-01] MEDS: Cefepime HCl 500 MG in D5W 55 ML IV SCH (10:04)
[2017-01-01 11:57] VITALS: BP 125/69
[2017-01-01] MEDS: Azithromycin 500 MG in D5W 275 ML IV SCH (12:04)
--- NOTE | 2017-01-01 13:16 | Pulmonology Progress Note ---
Assessment/Plan Problems: (1) Pleural effusion (2) Pneumonia (3) Encephalopathy acute (4) Chronic kidney disease (CKD) (5) COPD (chronic obstructive pulmonary disease) (6) Diabetes mellitus (7) Ventricular mural thrombus (8) Cardiomyopathy (9) BPH (benign prostatic hyperplasia) Assessment/Plan US guided thoracentesis done 1 1/2 liters were removed IV antibiotics cardiology to see for mural thormbosis Urology evaluation appreciated. afebrile, repeat cxr in am is negative might go home with oral antibiotics Subjective ROS Limited/Unobtainable: No Interval Events: no new complains Allergies: Coded Allergies: No Known Allergies (Unverified , 07/30/13) Objective Last 24 Hour Vital Signs Date Time Temp Pulse Resp B/P Pulse Ox O2 Delivery O2 Flow Rate FiO2 01/01/17 12:04 125/69 01/01/17 11:57 97.2 75 20 125/69 95 Nasal Cannula 2.0 01/01/17 09:45 83 126/79 01/01/17 07:57 97.0 83 21 126/79 95 Nasal Cannula 2.0 01/01/17 06:14 121/56 01/01/17 04:00 97.6 81 17 121/56 97 Room Air 01/01/17 02:18 97.7 01/01/17 01:18 129/55 01/01/17 00:00 97.7 67 20 129/55 95 Nasal Cannula 12/31/16 21:45 91 123/60 12/31/16 20:00 97.7 76 20 123/60 91 Room Air 12/31/16 17:53 118/62 12/31/16 17:30 Nasal Cannula 3.0 32 12/31/16 17:30 93 Nasal Cannula 3.0 32 12/31/16 16:00 97.7 79 20 126/68 89 Room Air 12/31/16 13:55 102/59 Intake and Output 12/31/16 01/01/17 19:00 07:00 Intake Total 120 ml Output Total 400 ml 800 ml Balance -280 ml -800 ml Intake Oral 120 ml Output Urine Total 400 ml 800 ml General Appearance: cachetic HEENT: normocephalic, atraumatic Respiratory/Chest: chest wall non-tender, normal breath sounds Cardiovascular: normal peripheral pulses, normal rate Abdomen: normal bowel sounds, soft, non tender Genitourinary: normal external genitalia Extremities: no cyanosis Skin: no rash, no ulcers Neurologic/Psychiatric: manager intranet II-XII grossly normal Lymphatic: no neck adenopathy Microbiology Date/Time Source Procedure Growth Status 12/29/16 15:00 Sputum Gram Stain - Final Complete 12/29/16 15:00 Sputum Culture - Final Qi Albicans Usual Upper Respiratory Barbara Complete Laboratory Tests 12/31/16 16:45: Body Fluid Source Thoracentesis, Body Fluid Volume 16, Body Fluid Appearance Hazy, Body Fluid RBC 143, Body Fluid Total Nucleated Cells 98, Body Fluid Polynuclear WBCs (%) 70, Body Fluid Mononuclear WBCs (%) 19, Body Fluid Mesothelial Cells (%) 11, Body Fluid Glucose [Pending], Body Fluid Total Protein [Pending], Body Fluid Albumin [Pending] 01/01/17 05:00: Urine Eosinophils None seen 01/01/17 06:25: White Blood Count 7.0, Red Blood Count 3.16L, Hemoglobin 8.7L, Hematocrit 25.9L , Mean Corpuscular Volume 82, Mean Corpuscular Hemoglobin 27.4, Mean Corpuscular Hemoglobin Concent 33.5, Red Cell Distribution Width 15.5H, Platelet Count 232, Mean Platelet Volume 6.9, Neutrophils (%) (Auto) 83.6H, Lymphocytes (%) (Auto) 10.2L, Monocytes (%) (Auto) 5.7, Eosinophils (%) (Auto) 0.1, Basophils (%) (Auto) 0.4, Sodium Level 137, Potassium Level 3.3L, Chloride Level 95L, Carbon Dioxide Level 23, Anion Gap 19H, Blood Urea Nitrogen 54H, Creatinine 2.9H, Estimat Glomerular Filtration Rate 21.8, Glucose Level 124H, Uric Acid 13.0H, Calcium Level 8.4L, Phosphorus Level 4.9H, Magnesium Level 2.1 , Total Bilirubin 0.4, Aspartate Amino Transf (AST/SGOT) 14, Alanine Aminotransferase (ALT/SGPT) 21, Alkaline Phosphatase 128, C-Reactive Protein, Quantitative 14.8H, Pro-B-Type Natriuretic Peptide 85357Q, Total Protein 6.0L, Albumin 2.7L, Globulin 3.3, Albumin/Globulin Ratio 0.8L Current Medications Medications (Trade) Dose Ordered Sig/Leslee Route PRN Reason Start Time Stop Time Status Last Admin Dose Admin Acetaminophen (Tylenol) 650 mg Q4H PRN ORAL Mild Pain/Temp > 100.5 12/29/16 15:45 01/28/17 15:44 12/30/16 14:27 Acetaminophen/ Hydrocodone Bitart 1 tab 1 tab Q4H PRN ORAL Moderate Pain (Pain Scale 4-6) 12/29/16 22:00 01/05/17 21:59 01/01/17 01:19 Albuterol/ Ipratropium (DuoNeb 0.5-3(2.5)mg/3ml) 3 ml EVERY 4 HOURS PRN HHN Shortness of Breath 12/29/16 06:45 01/03/17 06:44 Allopurinol (Allopurinol) 300 mg DAILY ORAL 01/01/17 09:30 01/31/17 09:29 01/01/17 09:55 Aspirin (Ecotrin) 81 mg DAILY ORAL 12/29/16 09:00 01/28/17 08:59 01/01/17 09:42 Atorvastatin Calcium (Lipitor) 40 mg BEDTIME ORAL 12/29/16 21:00 01/28/17 20:59 12/31/16 21:45 Azithromycin/ Dextrose (Zithromax/D5W) 275 ml @ 275 mls/hr Q24HRS IV 12/29/16 12:00 01/04/17 12:59 01/01/17 12:04 Cefepime HCl/ Dextrose (Maxipime/D5W) 55 ml @ 110 mls/hr Q24H IV 12/31/16 10:00 01/07/17 09:59 01/01/17 10:04 Dextrose STAT PRN IV Hypoglycemia 12/29/16 06:45 01/28/17 06:44 Docusate Sodium (Colace) 100 mg THREE TIMES A DAY ORAL 12/31/16 18:00 01/30/17 17:59 01/01/17 09:42 Finasteride (Proscar) 5 mg QHS ORAL 12/30/16 21:00 01/29/17 20:59 12/31/16 21:44 Heparin Sodium (Porcine) (Heparin 5000 units/ml) 5,000 units EVERY 12 HOURS SUBQ 12/29/16 09:00 01/28/17 08:59 01/01/17 09:47 Hydralazine HCl (Apresoline) 10 mg EVERY 6 HOURS ORAL 12/31/16 18:00 01/30/17 17:59 01/01/17 12:04 Insulin Aspart (NovoLOG) BEFORE MEALS AND HS SUBQ 12/29/16 11:30 01/28/17 11:29 01/01/17 11:55 Metoprolol Tartrate (Lopressor) 25 mg Q12HR ORAL 12/29/16 09:00 01/28/17 08:59 01/01/17 09:45 Nitroglycerin (Ntg) 0.4 mg Q5M PRN SL Prn Chest Pain 12/29/16 06:45 01/28/17 06:44 Ondansetron HCl (Zofran) 4 mg Q6H PRN IVP Nausea & Vomiting 12/29/16 06:45 01/28/17 06:44 01/01/17 06:36 Polyethylene Glycol (Miralax) 17 gm DAILYPRN PRN ORAL Constipation 12/29/16 06:45 01/28/17 06:44 Promethazine HCl/ Codeine (Phenergan with Codeine) 5 ml Q4H PRN ORAL For Cough 12/29/16 06:45 01/28/17 06:44 Tamsulosin HCl (Flomax) 0.4 mg BEDTIME ORAL 12/30/16 21:00 01/29/17 20:59 12/31/16 21:45 Temazepam (Restoril) 15 mg HSPRN PRN ORAL Insomnia 12/29/16 06:45 01/05/17 06:44 SIM ROJAS Jan 01, 2017 13:16
--- NOTE | 2017-01-01 13:17 | General Progress Note ---
Assessment/Plan Status: stable Assessment/Plan status: acute renal failure- with high K possible underlying CKD Urinary retention- CHF / cardiomyopathy Anemia Plan: Low dose Lasix 2 D Echo : Global left ventricular hypokinesis. Apical, distal septal and lateral akinesis. Left ventricular ejection fraction estimated to be 40-45%. Anemia [place] Adjust meds avoid nephrotoxics Monitor renal parameters Subjective ROS Limited/Unobtainable: No Constitutional: Reports: malaise, weakness Allergies: Coded Allergies: No Known Allergies (Unverified , 07/30/13) Objective Last 24 Hour Vital Signs Date Time Temp Pulse Resp B/P Pulse Ox O2 Delivery O2 Flow Rate FiO2 01/01/17 12:04 125/69 01/01/17 11:57 97.2 75 20 125/69 95 Nasal Cannula 2.0 01/01/17 09:45 83 126/79 01/01/17 07:57 97.0 83 21 126/79 95 Nasal Cannula 2.0 01/01/17 06:14 121/56 01/01/17 04:00 97.6 81 17 121/56 97 Room Air 01/01/17 02:18 97.7 01/01/17 01:18 129/55 01/01/17 00:00 97.7 67 20 129/55 95 Nasal Cannula 12/31/16 21:45 91 123/60 12/31/16 20:00 97.7 76 20 123/60 91 Room Air 12/31/16 17:53 118/62 12/31/16 17:30 Nasal Cannula 3.0 32 12/31/16 17:30 93 Nasal Cannula 3.0 32 12/31/16 16:00 97.7 79 20 126/68 89 Room Air 12/31/16 13:55 102/59 Intake and Output 12/31/16 01/01/17 19:00 07:00 Intake Total 120 ml Output Total 400 ml 800 ml Balance -280 ml -800 ml Intake Oral 120 ml Output Urine Total 400 ml 800 ml Laboratory Tests 12/31/16 16:45: Body Fluid Source Thoracentesis, Body Fluid Volume 16, Body Fluid Appearance Hazy, Body Fluid RBC 143, Body Fluid Total Nucleated Cells 98, Body Fluid Polynuclear WBCs (%) 70, Body Fluid Mononuclear WBCs (%) 19, Body Fluid Mesothelial Cells (%) 11, Body Fluid Glucose [Pending], Body Fluid Total Protein [Pending], Body Fluid Albumin [Pending] 01/01/17 05:00: Urine Eosinophils None seen 01/01/17 06:25: White Blood Count 7.0, Red Blood Count 3.16L, Hemoglobin 8.7L, Hematocrit 25.9L , Mean Corpuscular Volume 82, Mean Corpuscular Hemoglobin 27.4, Mean Corpuscular Hemoglobin Concent 33.5, Red Cell Distribution Width 15.5H, Platelet Count 232, Mean Platelet Volume 6.9, Neutrophils (%) (Auto) 83.6H, Lymphocytes (%) (Auto) 10.2L, Monocytes (%) (Auto) 5.7, Eosinophils (%) (Auto) 0.1, Basophils (%) (Auto) 0.4, Sodium Level 137, Potassium Level 3.3L, Chloride Level 95L, Carbon Dioxide Level 23, Anion Gap 19H, Blood Urea Nitrogen 54H, Creatinine 2.9H, Estimat Glomerular Filtration Rate 21.8, Glucose Level 124H, Uric Acid 13.0H, Calcium Level 8.4L, Phosphorus Level 4.9H, Magnesium Level 2.1 , Total Bilirubin 0.4, Aspartate Amino Transf (AST/SGOT) 14, Alanine Aminotransferase (ALT/SGPT) 21, Alkaline Phosphatase 128, C-Reactive Protein, Quantitative 14.8H, Pro-B-Type Natriuretic Peptide 71259X, Total Protein 6.0L, Albumin 2.7L, Globulin 3.3, Albumin/Globulin Ratio 0.8L Height (Feet): 5 Height (Inches): 2.00 Weight (Pounds): 145 General Appearance: no apparent distress Cardiovascular: normal rate Respiratory/Chest: decreased breath sounds Abdomen: distended Objective other physical exam not changed RASHMI VILLALOBOS Jan 01, 2017 13:17
[2017-01-01] MEDS ORDERED: LEVAQUIN750 MG ORAL (14:22)
[2017-01-01] MEDS ORDERED: Iron Sucrose 200 MG in NS 110 ML IVPB ONE (15:00)
[2017-01-01 16:11] VITALS: BP 97/55
[2017-01-01] MEDS ORDERED: Epogen (for non ESRD use) SUBQ SCH (21:00)
[2017-01-02 00:11] LABS: PROTEIN, BODY FLUID 1.4 g/dL (.)
[2017-01-02] MEDS ORDERED: Azithromycin 250mg tab ORAL SCH (09:00)
[2017-01-03 10:51] LABS: COMMENT,BODY FLUID PATHOLOGIST COMMENT
[2017-01-04] MEDS ORDERED: FLOMAX0.4 MG ORAL (10:39)
[2017-01-04] MEDS ORDERED: PROSCAR5 MG ORAL (10:39)
--- NOTE | 2017-01-04 10:49 | Discharge Summary ---
Discharge Summary Hospital Course Date of Admission Dec 29, 2016 at 05:44 Date of Discharge Jan 01, 2017 at 17:16 Admitting Diagnosis SEPSIS HPI Casimiro Martinez is a 66 year old male who was admitted on Dec 29, 2016 at 05:44 for Sepsis Hospital Course dc summary #[id number] Discharge Medications New Medications: Finasteride* (Proscar*) 5 Mg Tablet 5 MG ORAL DAILY, #30 TAB 0 Refills Tamsulosin HCl (Flomax) 0.4 Mg Cap.er.24h 0.4 MG ORAL DAILY, #30 CAP Continued Medications: Acetaminophen* (Tylenol Extra Strength*) 500 Mg Tablet 500 MG ORAL Q6H PRN for Prn Headache/Temp > 101, #30 TAB 0 Refills Aspirin Ec* (Aspirin Ec*) 81 Mg Tablet.dr 81 MG ORAL DAILY for 30 Days, TAB Atorvastatin Calcium* (Lipitor*) 40 Mg Tablet 40 MG ORAL BEDTIME, #30 TAB 0 Refills Furosemide* (Lasix*) 20 Mg Tablet 20 MG ORAL DAILY, #30 TAB Hydralazine Hcl* (Hydralazine Hcl*) 10 Mg Tablet 10 MG ORAL EVERY 8 HOURS, #30 TAB Insulin Aspart (Novolog Flexpen) 100 Unit/1 Ml Insuln.pen 0 UNITS SUBQ BEFORE MEALS AND HS for 30 Days, EA Levofloxacin* (Levaquin*) 750 Mg Tablet 750 MG ORAL DAILY, #2 TAB Metoprolol Tartrate (Metoprolol Tartrate) 25 Mg Tablet 25 MG ORAL Q12HR for 30 Days, TAB Discharge Condition Upon Discharge: stable Discharge Disposition Patient was discharged to Home (01) Discharge Diagnoses: Discharge Instructions Discharge Instructions Special Instructions I have been assigned to complete a D/C Summary on this account. I was not involved in the patient management Herlinda Zamarripa NP ([facility]) Jan 04, 2017 10:49
--- NOTE | 2017-01-05 02:15 | Discharge Summary 2 SIG ---
DATE OF ADMISSION: 12/29/2016 DATE OF DISCHARGE: 01/01/2017 REASON FOR ADMISSION: The patient is a 66-year-old male with history of diabetes and hypertension, who was presented by systems mechanic with a chief complaint of altered mental status. Family called systems mechanic due to the altered level status. The patient is not using any alcohol. No illicit drug use. No fever. No chills. Workup in the emergency room revealed low-grade fever of 99.9. The patient was hypoxemic on two liters of oxygen 86% only. Chest x-ray revealed bilateral pleural effusion with diffuse bilateral pulmonary interstitial valvular disease as well as these findings were compatible with congestive heart failure with bilateral pleural effusion and pulmonary edema. There was also evidence of focal airspace consolidation in the right medial upper lobe. The patient had mild leukocytosis of 11.7, hemoglobin 9.4, hematocrit 28.1, BUN 48 and creatinine 2.4. The patient was admitted for further management. ADMITTING DIAGNOSES: Include, 1. Acute encephalopathy. 2. Pneumonia. 3. Congestive heart failure. 4. Acute on chronic renal failure. 5. Chronic obstructive pulmonary disease. 6. Left pleural effusion. HOSPITAL COURSE: The patient was admitted. Supplemental oxygen and pulmonary toilet were provided as needed. FiO2 was titrated to keep saturation above 92%. The patient subsequently undergone thoracentesis of left pleural effusion, which will be 1300 mL of pleural fluid. Further cytology of pleural fluid was negative for malignant cells. The patient was on empiric antibiotic. ID followed. Blood culture was negative. Urine culture was negative. Sputum culture was positive for Qi. Pleural fluid culture was negative. Per ID recommendation, continue additional few days of oral antibiotic prior to discharge. No fever. No leukocytosis resolved. Distribution Spec followed the patient for renal failure and he recommended to stop Lasix for now and avoid all nephrotoxics if possible in future. Monitor renal parameters and electrolytes. Initial BUN is 48 and creatinine 2.4. Prior to discharge, BUN 54 and creatinine 2.9. Blood sugar was managed with a sliding scale of insulin. Hemoglobin A1c is 9.8 not at goal. However, in the hospital blood sugar was stable. As outpatient needs close followup with the primary medical doctor. Possible question of noncompliance. Echocardiogram was done and Cardiology consult was requested. The patient had an ejection fraction of 40% to 45%. Small area of echodensity noted in the apical region, possible left ventricular thrombus, right ventricular systolic pressure of 40, consistent with moderate pulmonary hypertension as well as evidence of moderate mitral regurgitation. Prior to discharge, though he was able to be weaned on room air and saturation was 94%. Clinically improved. His acute encephalopathy initially was likely secondary to infectious process, and his mental status returned to baseline while his clinical condition improved. Hand Filer Balance Wheel followed the patient. According to child care attendant, the patient might have ischemic cardiomyopathy. Medical management of cardiomyopathy continued with the beta-parish and hydralazine. No diuretic for now. Resume as outpatient. Blood pressure was managed with beta-parish and hydralazine and was stable. The patient initially had sinus tachycardia. According to child care attendant, it was probably related to pneumonia and was treated with IV fluids and antibiotics and supplemental oxygen, which is resolved. The patient had a urinary retention. Lee catheter was unable to void. Lee catheter was placed. Urology consult was requested. Urology seen and evaluated the patient. Started the patient on Flomax and Proscar. Recommended to keep the catheter for 1 or 2 days and then discontinue. Lee catheter was discontinued prior to discharge. The patient was able to void 2 times. Chest x-ray post thoracentesis revealed decrease in left pleural effusion and no pneumothorax. Inflammatory markers were monitored. CRP was 24.6 on 12/31/2016 down to 14.8 on 01/01/2017. The patient was stable to return back home and follow up with the primary medical doctor. DISCHARGE DIAGNOSES: Include, 1. Acute encephalopathy due to the infectious process, resolved. 2. Pneumonia. 3. Systolic congestive heart failure. 4. Cardiomyopathy. 5. Acute on chronic renal failure. 6. Diabetes mellitus. 7. Hypertension. 8. Chronic obstructive pulmonary disease. 9. Left pleural effusion. 10. Status post thoracentesis left pleural effusion. 11. Possible left ventricle mural thrombus. 12. Benign prostatic hypertrophy with urinary retention. DISCHARGE MEDICATIONS: See medication reconciliation list. DISCHARGE INSTRUCTIONS: The patient was discharged home. Follow up with the primary medical doctor. Mirali Zarrabi, M.D. I have been assigned to dictate discharge summary on this account and I was not involved in the patient's management. Herlinda Zamarripa N.P. (vanchtein) DR: CIERA JOB#: [id number] CC:
== END 2017-01-01 17:16 | disposition home or self-care (01) | DRG 193 ==
LOC: EDBD 04:10 → EMR 04:30 → EDBEDREQ 05:16 → 4E 05:44 → EDBEDREQ 05:53 → 4E 11:45
PROC: 0W9B3ZZ Drainage of Left Pleural Cavity, Percutaneous Approach (ICD-10-PCS; principal; 2016-12-30)
DX: J18.9 Pneumonia, unspecified organism (principal); G93.40 Encephalopathy, unspecified; J90 Pleural effusion, not elsewhere classified; N17.9 Acute kidney failure, unspecified; I42.9 Cardiomyopathy, unspecified; I50.20 Unspecified systolic (congestive) heart failure; I50.9 Heart failure, unspecified; E11.22 Type 2 diabetes mellitus with diabetic chronic kidney disease; J44.9 Chronic obstructive pulmonary disease, unspecified; D64.9 Anemia, unspecified; I12.9 Hypertensive chronic kidney disease with stage 1 through stage 4 chronic kidney disease, or unspecified chronic kidney disease; N18.9 Chronic kidney disease, unspecified; R00.0 Tachycardia, unspecified; I51.3 Intracardiac thrombosis, not elsewhere classified; N40.1 Benign prostatic hyperplasia with lower urinary tract symptoms; R33.8 Other retention of urine; K40.90 Unilateral inguinal hernia, without obstruction or gangrene, not specified as recurrent; E78.00 Pure hypercholesterolemia, unspecified
CPT/HCPCS: 36415; 71010; 72192; 76942; 80053; 80061; 80069; 81001; 81003; 82164; 82550; 82553; 82607; 82728; 82746; 82962; 82977; 83036; 83540; 83550; 83605; 83735; 83880; 84100; 84300; 84443; 84484; 84550; 85025; 85610; 85730; 86140; 87040; 87070; 87086; 87205; 88104; 89050; 89051; 93005; 93306; 94760; J1815; J2405; J8499